=== PATIENT | female | born 1940 | race Caucasian/White ===

== ENCOUNTER 2022-10-11 02:40 | Inpatient (IN) | payer MEDICARE, SELFPAY ==
[2022-10-11] VITALS (44 sets, daily range): BP systolic 70–121; BP diastolic 42–79; PULSE 98–141; RESP 16–26; TEMP 36.3–37.6; O2SAT 94–99; BMI 41.4
--- NOTE | 2022-10-11 | ECHO_ITS ---
Patient Info Name: Damaris Kramer Age: 82 years : 1940 Gender: Female Ht: 63 in Wt: 233 lbs BSA: 2.22 m2 HR: 120 bpm BP: 80 / 62 mmHg Heart Rhythm: Tachycardia, Atrial Fibrillation Exam Date: 10/11/2022 4:10 PM Exam Location: [facility] Pulmonary Patient Status: Inpatient Admit Date: 10/11/2022 Staff Ordering Physician: Damon Arce MD Livestock Farmworker: Arleth Lam RDCS Attending Provider: Saad Sifuentes MD Exam Type: CA echo doppler color flow Study Info Indications - Leg swelling Summary 1. Left ventricular chamber dimension is normal. 2. Left ventricular systolic function is mildly reduced, estimated at 40-45%. Of note, patient is tachycardic during the study. 3. Right ventricular chamber dimension is mildly enlarged. 4. Right ventricular systolic function is reduced. 5. Left atrial chamber dimension is moderately enlarged. 6. Right atrial chamber dimension is mildly enlarged. 7. There is moderate aortic valve sclerosis. 8. There is mild tricuspid valve regurgitation. Left Ventricle Left ventricular chamber dimension is normal. Left ventricular systolic function is mildly reduced, estimated at 40-45%. Of note, patient is tachycardic during the study. There is no increased left ventricular wall thickness. Right Ventricle Right ventricular chamber dimension is mildly enlarged. Right ventricular systolic function is reduced. Left Atria Left atrial chamber dimension is moderately enlarged. Right Atria Right atrial chamber dimension is mildly enlarged. Atrial Septum Intact interatrial septum visualized by color flow imaging. Aortic Valve The aortic valve is not well visualized. There is moderate aortic valve sclerosis. There is no aortic valve stenosis. There is no aortic valve regurgitation. Pulmonic Valve The pulmonic valve is not well visualized. Mitral Valve There is trace mitral valve regurgitation. Tricuspid Valve There is mild tricuspid valve regurgitation. Pericardium/Pleural There is small anterior pericardial effusion. Aorta The aortic root size at the sinus of Valsalva is normal. Left Ventricular Outflow Tract Name Value Normal LVOT 2D LVOT Diameter 2.0 cm LVOT Doppler LVOT Peak Gradient 2 mmHg LVOT Mean Gradient 1 mmHg LVOT VTI 11 cm LVOT VTI/AV VTI Ratio 0.5 LVOT Stroke Volume 35 ml LVOT CO 3.5 l/min LVOT CI 1.6 l/min/m2 Pulmonic Valve Name Value Normal RVOT Doppler RVOT Peak Gradient 1 mmHg PV Doppler PV Peak Gradient 4 mmHg Mitral Valve
--- NOTE | ~2022-10-11 | CT_ITS ---
EXAMINATION: CT abdomen pelvis wo con DATE: 10/11/2022 06:50 INDICATION: Abdominal pain. TECHNIQUE: Computed tomography (CT) of the abdomen and pelvis was performed without intravenous contr ast. Automated exposure control and iterative reconstruction technique were employed. The dose-length product was 1400.80 mGy-cm. COMPARISON: None. FINDINGS: The visualized portions of the lung bases demonstrate mild atelectasis. No pleural effusion . There is left atrial enlargement of the heart. There are coronary artery calcifications. No pericar dial effusion. The liver and spleen are normal. There are changes of cholecystectomy. The pancreas an d adrenal glands are normal. There are cysts in the kidneys measuring up to 2.3 cm on the right. Ther e is no urolithiasis. There are bilateral inguinal hernias containing fat. There is diverticulosis of the colon without evidence of diverticulitis. There are no dilated loops of bowel. The appendix is n ot visualized. There are changes of umbilical hernia repair. There is diastases of the rectus abdomin is muscles. There are no pathologically enlarged lymph nodes. There is no free intraperitoneal fluid. There is pelvic floor dysfunction. There is severe lumbar spondylosis. Thoracolumbar levoscoliosis i s noted. IMPRESSION: 1. Bilateral inguinal hernias containing fat. Reviewed, dictated and finalized at location A.
--- NOTE | ~2022-10-11 | CT_ITS ---
CT Scan of the Chest without Contrast: Clinical Indication: Sepsis Technique: Contiguous sections were acquired throughout the chest without intravenous contrast. Dose reduction technique was used on this scan by utilizing automated exposure control and iterative recon struction technique. The dose-length product (DLP) was 595.56 mGy-cm. Findings: There is no evidence of any significant mediastinal, hilar or axillary lymphadenopathy. Coronary abigail ry calcifications are present. No aortic aneurysm. There is no evidence of pleural or pericardial effusion. There is mild bibasilar scarring or atelectatic change. Large calcified left upper lobe granuloma not ed. Images through the upper abdomen reveal no abnormalities. Impression: No acute abnormality seen. Bibasilar chronic scarring or atelectatic change. Calcified left upper lobe granuloma. Reviewed, dictated and finalized at [facility] [place]. Impression: No acute abnormality seen. Bibasilar chronic scarring or atelectatic change. Calcified left upper lobe granuloma.
--- NOTE | ~2022-10-11 | XR_ITS ---
EXAMINATION: XR chest 1V portable DATE: 10/11/2022 03:29 INDICATION: Weakness. TECHNIQUE: A single frontal view of the chest was obtained. COMPARISON: None. FINDINGS: There is mild atelectasis at the lung bases. A calcified left lung nodule is consistent wit h old granulomatous disease. No pleural effusion or pneumothorax. The heart size is normal. There are prominent paracardial fat pads. IMPRESSION: 1. Mild atelectasis at the lung bases. Reviewed, dictated and finalized at location A.
--- NOTE | ~2022-10-11 | XR_ITS ---
EXAMINATION: XR chest PICC line INDICATION: PICC insertion TECHNIQUE: Portable AP chest at 2025 hours COMPARISON: 0324 hours FINDINGS: A right upper extremity PICC ends with its tip in the distal superior vena cava. There is m ild atelectasis or scarring of the lung bases. No pleural effusion or pneumothorax. The cardiomediast inal silhouette is stable. A calcified nodule of the right upper lobe is consistent with old granulom atous disease. IMPRESSION: 1. Right upper extremity PICC ending with its tip in distal superior vena cava. Reviewed, dictated and finalized at location F.
--- NOTE | 2022-10-11 02:45 | ECG_ITS ---
Measurements Intervals [place] Rate: 151 P: GA: 0 QRS: -29 QRSD: 95 T: 145 QT: 259 QTc: 412 Interpretive Statements ATRIAL FIBRILLATION WITH RAPID VENTRICULAR RESPONSE DELAYED PRECORDIAL R/S TRANSITION ST-T WAVE ABNORMALITY IN HIGH LATERAL LEADS- CONSIDER ISCHEMIA BASELINE ARTIFACT- I, II, III, AVR ABNORMAL ECG NO PREVIOUS ECG AVAILABLE FOR COMPARISON Electronically Signed On 10-11-2022 7:59:59 CDT by Sergo Tolbert D.O.
[2022-10-11] MEDS: dilTIAZem HCl INJ 25 MG/5 ML VIAL 20 MG IV PUSH (03:02)
[2022-10-11] MEDS: dilTIAZem 100 MG/100 ML 100 MG/100 ML BAG IV CONT (03:02)
[2022-10-11 03:05] LABS: Basophils Percent Auto 0.4 % (0.2-1.2); Eosinophils Percent Auto 0.3 % (0-4.4); Hematocrit 42.8 % (37.0-47.0); Immature Granulocyte Absolute 0.04 K/mm3 (0.00-0.031); Immature Granulocyte Percent A 0.5 % (0-0.5); Lymphocytes Absolute Auto 3.48 K/mm3 (0.9-3.2); Lymphocytes Percent Auto 44.8 % (18.3-44.2); Mean Corpuscular Hemoglobin 34.3 pg (26-34); Mean Corpuscular Volume 97.9 fl (80-100); Mean Platelet Volume 10.2 fl (7.4-10.4); Monocytes Percent Auto 0.4 % (2.6-8.5); Neutrophils Absolute Auto 4.2 K/mm3 (1.3-6.7); Neutrophils Percent Auto 53.6 % (45.5-73.1); Platelet Count Result 144 k/mm3 (150-375); Red Blood Count 4.37 M/mm3 (4.2-5.4); Red Cell Distribution Width 14.1 % (11.5-14.5); White Blood Count 7.8 K/mm3 (4.5-10.0)
[2022-10-11 03:19] LABS: INR 1.1; Prothrombin Time 14.1 Seconds (11.1-14.7)
[2022-10-11 03:20] LABS: Partial Thromboplastin Time 24.7 SECONDS (22.3-36.8)
--- NOTE | 2022-10-11 03:20 | ED.GENADULT ---
HPI - General Adult General Chief complaint: Arrhythmia/Palpitations <Scout Ashby MD - Last Filed: 10/11/22 21:30> Stated complaint: GENERALIZED WEAKNESS, RAPID HEART RATE. <Scout Ashby MD - Last Filed: 10/11/22 21:30> Time Seen by Provider: 10/11/22 02:41 <Scout Ashby MD - Last Filed: 10/11/22 21:30> History of Present Illness HPI narrative: Patient is a 82-year-old female who presents the emergency department with chief complaint of tachycardia. Per EMS the patient was found to be in A-fib with RVR and the patient was also complaining of bilateral hip pain. Patient reports has also had some nausea and vomiting with this. Patient upon initial presentation was having a heart rate in the 140s and also reporting that the pain has not improved in her hips. The patient had a moderately low blood pressure upon initial presentation of 97/62. <Scout Ashby MD - Last Filed: 10/11/22 21:30> Related Data Home medications: Home Medications Medication Instructions Recorded Confirmed buspirone 15 mg tablet 15 mg PO BID 10/11/22 10/11/22 furosemide 80 mg tablet 80 mg PO BID 10/11/22 10/11/22 ketoconazole 2 % topical cream 1 applic topical Q12H 10/11/22 10/11/22 levothyroxine 100 mcg tablet 100 mcg PO DAILY 10/11/22 10/11/22 metformin 1,000 mg tablet 1,000 mg PO BID 10/11/22 10/11/22 rosuvastatin 10 mg tablet 10 mg PO DAILY 10/11/22 10/11/22 tramadol 50 mg tablet 50 mg PO Q8H PRN Pain 10/11/22 10/11/22 warfarin 5 mg tablet 5 mg PO DAILY 10/11/22 10/11/22 <Scout Ashby MD - Last Filed: 10/11/22 21:30> Allergies/adverse reactions: Allergies Allergy/AdvReac Type Severity Reaction Status Date / Time No Known Allergies Allergy Verified 10/11/22 02:52 <Scout Ashby MD - Last Filed: 10/11/22 21:30> Review of Systems Review of Systems: A 10 system review of systems was completed on the patient and is negative except for what is stated in the HPI. Nursing and ancillary documentation was reviewed. <Scout Ashby MD - Last Filed: 10/11/22 21:30> PMFSH Past Medical History Medical History: Medical History Diabetes mellitus Hyperlipidemia Hypothyroidism <Scout Ashby MD - Last Filed: 10/11/22 21:30> Social History Social History: Social History Smoking status: Never smoker Alcohol intake: never Substance use: never Lack of Transportation: No Lack of Food: Never True Current Housing: I Have Housing Concerned About Future Housing: No Difficulty Paying Gas/Electric Bills: No Difficulty Paying for Meds: No Currently Unemployed: No Education: High School Diploma/GED Difficulty w/ Childcare or Family Care: No Spiritual care concerns: No <Scout Ashby MD - Last Filed: 10/11/22 21:30> Exam Narrative: GENERAL: Ill-appearing well-nourished, and in no acute distress. HEAD: Normocephalic, atraumatic. EYES: PERRLA and EOMI. ENT: Nares clear, no rhinorrhea or epistaxis. Mucous membranes moist. NECK: Supple. CHEST: Clear to auscultation. No respiratory distress. HEART: Tachycardic irregular rate and rhythm. No murmur heard. Normal peripheral pulses. ABDOMEN: Soft, mild diffuse tenderness, nondistended, normal active bowel sounds. EXTREMITIES: Normal range of motion. No edema. SKIN: Warm, dry, no rash. NEURO: No focal deficits. Alert and oriented x3. PSYCH: Normal mood and affect. <Scout Ashby MD - Last Filed: 10/11/22 21:30> Course Course Emergency Course: Patient is arrhythmia was managed initially with Cardizem bolus and Cardizem drip. Patient received hydration with multiple liters of fluid. And further treatment <Scout Ashby MD - Last Filed: 10/11/22 21:30> Reevaluation(s) Reevaluation #1:
[2022-10-11 03:24] LABS: Lactic Acid Reflex 6.4 mmol/L (0.7-2.0)
[2022-10-11 03:25] LABS: Alanine Aminotransferase 18 U/L (6-35); Alkaline Phosphatase 208 U/L (38-126); Anion Gap 19 mmol/L (8-16); Aspartate Amino Transferase 22 U/L (14-36); Blood Urea Nitrogen 39 mg/dL (7-17); Calcium 8.9 mg/dL (8.4-10.2); Carbon Dioxide 19 mmol/L (22-30); Chloride 93 mmol/L (98-107); Estimated CRCL calculation 23 ml/min; Estimated Glomerular Filt Rate 24; Glucose 561 mg/dL (65-110); Lipase 72 U/L (23-300); Magnesium 1.1 mg/dL (1.6-2.3); Sodium 131 mmol/L (137-145)
[2022-10-11] MEDS: MORPHINE SULFATE (*CRX) 4 MG/ML INJ IV PUSH (03:25)
[2022-10-11 03:32] LABS: NT Pro B Type Natriuretic Pept 643 pg/mL (19.9-100); Troponin I 0.019 ng/mL (0.000-0.034)
[2022-10-11] MEDS: SODIUM CHLORIDE 0.9% IV 1,000 ML 999 ML IV CONT ×4 (03:57→07:26)
[2022-10-11] MEDS: MAGNESIUM SULFATE 3GM/D5W100ML 3 GM/100 ML BAG IVPB (04:59)
[2022-10-11 06:04] LABS: Reflex Lactic Acid Yes or No Add Lactic
[2022-10-11 06:59] LABS: Lactic Acid 4.3 mmol/L (0.7-2.0)
[2022-10-11 07:08] LABS: Troponin I 0.049 ng/mL (0.000-0.034)
[2022-10-11 07:18] LABS: Appearance Urine Clear (Clear); Bacteria Urine 4+ /hpf; Bilirubin Urine Negative (Negative); Blood Urine Trace (Negative); Color Urine Yellow (Yellow); Glucose Urine UA 3+ mg/dL (Negative); Ketones Urine Negative (Negative); Leukocyte Esterase Ur Trace LEU/UL (Negative); Need Manual Microscopic Reviewed; Nitrate Urine Negative (Negative); Protein Urine Negative (Negative); RBC Urine 0-2 /hpf (0-2); Specific Grav Ur 1.014 (1.001-1.035); Squamous Epithelial Cell Urine Few /hpf (Few); Urobilinogen Urine 0.2 mg/dL (<2.0)
[2022-10-11 07:20] LABS: Add Urine Microscopic? YES
[2022-10-11] MEDS: PIPERACILLN/TAZ 3.375GM/NS50ML 3.375 GM/50 ML BAG IVPB (09:13)
[2022-10-11] MEDS: INSULIN HUMAN REGULAR (*BKC) 100 UNITS in SODIUM CHLORIDE 0.9% IV 99 ML 9.8 UNITS IV CONT (09:35)
[2022-10-11 09:46] LABS: Glucose Point of Care > 500 mg/dl (65-105)
[2022-10-11 09:56] LABS: Phosphorus 2.6 mg/dL (2.5-4.5)
[2022-10-11 10:02] LABS: Beta-Hydroxybutyrate/Acetoacetate 0.54 mmol/L (0.02-0.27)
[2022-10-11 10:37] LABS: Glucose Point of Care > 500 mg/dl (65-105)
[2022-10-11 10:48] LABS: Alveolar/Arterial O2 Gradient 29.6 mmHg; Base Excess ABG -6.5 mEq/l (+/-2.0); Device ROOM AIR; Fractional Inspired Oxygen 21 %; HCO3 ABG 18.9 mEq/l (22.0-26.0); Modified Allen's Test Pass; Oxygen Content ABG 17.5 %vol (16.0-22.0); Oxygen Saturation ABG 94.3 % (95.0-100.0); Oxyhemoglobin 92.9 % THb (90.0-100.0); PCO2 ABG 37.1 mmHg (35.0-45.0); PO2 ABG 75.7 mmHg (80.0-100.0); Site Drawn LEFT RADIAL; Total Hemoglobin 13.4 g/dL (12.0-18.0); pH ABG 7.324 (7.350-7.450)
[2022-10-11 11:17] LABS: Procalcitonin 2.3 ng/mL
[2022-10-11 11:35] LABS: Lactic Acid Reflex 5.2 mmol/L (0.7-2.0)
[2022-10-11 11:45] LABS: Glucose Point of Care 438 mg/dl (65-105)
--- NOTE | 2022-10-11 12:21 | PC.NURSE ---
This patient, Damaris Kramer, was admitted to Intensive Care Unit-4. Patient/family oriented to hospital policies and general routines including ID bracelet, bed and alarms, visiting hours, pain management, procedures, bathroom and other care routines, personal items, smoking policy, room service/diet, and visiting hours. Information on how to activate the Rapid Response Team has been discussed. Patient/Family are encouraged to report perceived risks to care and to ask questions if they do not understand what they are told or what they should do.
[2022-10-11 12:48] LABS: Phosphorus 2.3 mg/dL (2.5-4.5)
[2022-10-11 12:50] LABS: Glucose Point of Care 402 mg/dl (65-105)
[2022-10-11 12:57] LABS: Hemoglobin A1C 12.2 % (<5.7)
[2022-10-11 13:01] LABS: Anion Gap 16 mmol/L (8-16); Blood Urea Nitrogen 37 mg/dL (7-17); Calcium 8.2 mg/dL (8.4-10.2); Carbon Dioxide 17 mmol/L (22-30); Chloride 99 mmol/L (98-107); Estimated CRCL calculation 27 ml/min; Estimated Glomerular Filt Rate 29; Glucose 446 mg/dL (65-110); Sodium 132 mmol/L (137-145)
[2022-10-11 13:08] LABS: Creatine Kinase 484 U/L (30-135)
--- NOTE | 2022-10-11 13:32 | WPDCNINT ---
Assessment and Plan Assessment and plan (1) DKA (diabetic ketoacidosis): Code(s): E11.10 - Type 2 diabetes mellitus with ketoacidosis without coma Status: Acute Assessment and Plan: Patient presented with elevated blood sugar metabolic acidosis and elevated beta hydroxybutyrate Patient only on metformin and her HbA1c was 12.2 Continue IV fluids Insulin infusion was started in the ER but will be held due to hypokalemia at this time Serial BMPs Patient does not have any GI symptoms at this time and I will order clear liquid diet Consult deputy juvenile officer and dietitian (2) Lactic acidosis: Code(s): E87.20 - Acidosis, unspecified Status: Acute Assessment and Plan: Patient presented with elevated lactic acid which is likely combination of hypovolemia dehydration. Patient also on metformin which is likely contributing. Patient also has evidence UTI which as component of sepsis Continue IV fluids Hold metformin (3) Atrial fibrillation with rapid ventricular response: Code(s): I48.91 - Unspecified atrial fibrillation Status: Acute Assessment and Plan: Patient has history of AFib but I do not see any rate control medication in the medication list She was given Cardizem in the ER which led to drop in blood pressure Currently she has acceptable rate of control and will monitor May need amiodarone She is on warfarin but I question her compliance as she admitted that she does not take her medications regularly and her INR is 1.1 She received a dose of Lovenox in the ED which should cover her for 24 hours considering her renal function Resume warfarin (4) Hyperlipidemia: Code(s): E78.5 - Hyperlipidemia, unspecified Status: Acute Assessment and Plan: Continue rosuvastatin (5) Hypothyroidism: Code(s): E03.9 - Hypothyroidism, unspecified Status: Acute Assessment and Plan: Continue levothyroxine Check TSH (6) Back pain: Code(s): M54.9 - Dorsalgia, unspecified Status: Acute Assessment and Plan: No focal neurological deficit or fall CT shows severe lumbar spondylosis. Thoracolumbar levoscoliosis is noted. Exam as above Continue p.r.n. analgesic (7) Acute hypokalemia: Code(s): E87.6 - Hypokalemia Status: Acute Assessment and Plan: Hold insulin infusion IV K-Phos and p.o. KCl ordered Change IV fluids to saline with KCl Resume insulin infusion in few hours Serial BMPs ordered (8) Hypomagnesemia: Code(s): E83.42 - Hypomagnesemia Status: Acute Assessment and Plan: Improved after placement (9) Sepsis: Code(s): A41.9 - Sepsis, unspecified organism Status: Acute Assessment and Plan: Patient presented with elevated lactic acid and low blood pressure Chest and abdomen CT are unremarkable UA suggests UTI Blood and urine culture sent Procalcitonin only mildly elevated at 2.3 Continue Zosyn but will hold vancomycin after current dose Her blood pressure has been adequate at this time but may need vasopressors Plan DVT prophylaxis -Lovenox Nutrition -clear liquid diet Code Status - Full Code Total Critical Care Time - 40 minutes Due to a high probability of clinically significant, life threatening deterioration, the patient required my highest level of preparedness to intervene emergently and I personally spent this critical care time directly and personally managing the patient. This critical care time included obtaining a history; examining the patient; pulse oximetry; ordering and review of studies; arranging urgent treatment with development of a management plan; evaluation of patient's response to treatment; frequent reassessment; and discussions with other providers. It was exclusive of separately billable procedures and treating other patients and teaching time. Please see Assessment and Plan section and the rest of the note for further information on patient assessment and
[2022-10-11] MEDS: POTASSIUM CHLORIDE 20 MEQ PACKET (FOR LIQUID) 40 MEQ PO (13:42)
[2022-10-11] MEDS: HYDROcodone/acetaminophen (*CRX) 5-325 MG TABLET 1 TAB PO ×3 (13:44→22:01)
[2022-10-11] MEDS: POTASSIUM PHOS,M-BASIC-D-BASIC 20 MMOL in SODIUM CHLORIDE 0.9% IV 250 ML 64.17 MMOL IVPB (14:20)
[2022-10-11] MEDS: KCL 20MEQ/0.9% SOD CHL 1,000 ML 150 ML IV CONT (14:25)
[2022-10-11] MEDS: ENOXAPARIN 120 MG/0.8 ML SYRINGE 110 MG SUB-Q (15:12)
[2022-10-11 15:56] LABS: Appearance Urine Clear (Clear); Bacteria Urine 4+ /hpf; Bilirubin Urine Negative (Negative); Blood Urine 1+ (Negative); Color Urine Yellow (Yellow); Glucose Urine UA 3+ mg/dL (Negative); Ketones Urine Negative (Negative); Leukocyte Esterase Ur Negative LEU/UL (NEGATIVE); Nitrate Urine Negative (Negative); Protein Urine Trace mg/dL (Negative); RBC Urine 0-2 /hpf (0-2); Specific Grav Ur 1.017 (1.001-1.035); Squamous Epithelial Cell Urine Occasional /hpf (Few); Urobilinogen Urine 0.2 mg/dL (<2.0); WBC Urine 0-5 /hpf (0-3)
[2022-10-11 15:57] LABS: Glucose Point of Care 390 mg/dl (65-105)
[2022-10-11 16:06] LABS: Add Urine Microscopic? YES
[2022-10-11 17:01] LABS: Free T4 Free Thyroxine Reflex 0.94 ng/dL (0.78-2.19)
[2022-10-11] MEDS: PIPERACILLIN/TAZ 2.25G/NS 50ML 2.25 GM/50 ML BAG IVPB (17:06)
[2022-10-11] MEDS: WARFARIN (*PBKC) 5 MG TABLET PO (17:06)
[2022-10-11 17:15] LABS: Glucose Point of Care 362 mg/dl (65-105)
[2022-10-11 17:21] LABS: Anion Gap 15 mmol/L (8-16); Blood Urea Nitrogen 38 mg/dL (7-17); Calcium 7.8 mg/dL (8.4-10.2); Carbon Dioxide 18 mmol/L (22-30); Chloride 99 mmol/L (98-107); Estimated CRCL calculation 29 ml/min; Estimated Glomerular Filt Rate 31; Glucose 359 mg/dL (65-110); Potassium 3.8 mmol/L (3.4-5.0); Sodium 132 mmol/L (137-145)
[2022-10-11] MEDS: INSULIN HUMAN REGULAR (*BKC) 100 UNITS in SODIUM CHLORIDE 0.9% IV 99 ML 21 UNITS IV CONT (17:48)
[2022-10-11 17:55] LABS: Total Triiodothyronine (T3) 0.37 NG/ML (0.97-1.69)
[2022-10-11 18:12] LABS: Glucose Point of Care 322 mg/dl (65-105)
[2022-10-11 19:22] LABS: Glucose Point of Care 267 mg/dl (65-105)
--- NOTE | 2022-10-11 20:03 | PC.NURSE ---
Daughter Shelley's phone number is [phone]
[2022-10-11 21:00] LABS: Glucose Point of Care 164 mg/dl (65-105)
[2022-10-11 21:15] LABS: Anion Gap 8 mmol/L (8-16); Blood Urea Nitrogen 37 mg/dL (7-17); Calcium 7.9 mg/dL (8.4-10.2); Carbon Dioxide 22 mmol/L (22-30); Chloride 105 mmol/L (98-107); Estimated CRCL calculation 32 ml/min; Estimated Glomerular Filt Rate 36; Glucose 124 mg/dL (65-110); Potassium 4.4 mmol/L (3.4-5.0); Sodium 135 mmol/L (137-145)
--- NOTE | 2022-10-11 21:30 | PM.IMHP ---
H&P: HPI History of Present Illness Date/Time: 10/11/22 21:30 Chief Complaint: Generalized weakness, nausea, vomiting. Narrative: This is an 82-year-old female with type 2 diabetes mellitus, hypertension, hypothyroidism, and paroxysmal atrial fibrillation on chronic anticoagulation who presented to the emergency department via EMS from home early this morning for evaluation of generalized weakness, nausea, and vomiting. Patient provides the following history. She got up early this morning to use the restroom at which time she felt extremely weak and nauseated. She was also having severe pain in her hips and knees which she states is not new for her and she is really not able to elaborate. She said she called 911 because of the pain in her hips and knees, which again is not new. On EMS arrival she was found to be in atrial fibrillation with rapid ventricular response in the emergency department she was started on a diltiazem however her blood pressure did drop and that was discontinued. She continues to have soft blood pressures which have been essentially stable with aggressive IV fluid rehydration. She has no symptoms of AFib/RVR and specifically denies lightheadedness, dizziness, chest pain, palpitations, sensations of racing heart, and shortness of breath. Regarding the pain in her hips and knees, this is chronic and she has not had any recent falls or injuries. She denies back pain, paresthesias, saddle anesthesia, and focal weakness of the lower legs. She has not noticed any redness or swelling of the joints. She was afebrile on arrival to the emergency department and she has been in AFib/RVR since arrival. Pertinent labs include a WBC count of 7.8, sodium 131, potassium 3.0, chloride 93, carbon dioxide 19, anion gap 19, BUN 39, creatinine 2.00, glucose 561, magnesium 1.1, beta hydroxybutyrate 0.54, procalcitonin 2.3, lactic acid 6.4. She has since been admitted to the ICU for further treatment of diabetic ketoacidosis, atrial fibrillation with rapid ventricular response, and possible sepsis. At the time of my evaluation she is resting comfortably and has no specific complaints. Review of Systems Review of Systems: Twelve systems were reviewed and are negative except for as per HPI. COUNT INCLUDES THE [facility] Past Medical History Medical History (Updated 10/13/22 @ 02:15 by Suzi Chen PA-C) Chronic anticoagulation Hyperlipidemia Hyperlipidemia Hypothyroidism Type 2 diabetes mellitus Surgical History Surgical History (Updated 10/13/22 @ 02:15 by Suzi Chen PA-C) No history of major surgery within 1 month Family History Family History (Updated 10/13/22 @ 02:15 by Suzi Chen PA-C) Other Family history non-contributory Social History Social History (Updated 10/13/22 @ 02:15 by Suzi Chen PA-C) Social History: Surrogate medical decision maker: Khari Kramer, son. Code status: Full code. Smoking status: Never smoker Alcohol intake: never Substance use: never Lack of Transportation: No Lack of Food: Never True Current Housing: I Have Housing Concerned About Future Housing: No Difficulty Paying Gas/Electric Bills: No Difficulty Paying for Meds: No Currently Unemployed: No Education: High School Diploma/GED Difficulty w/ Childcare or Family Care: No Spiritual care concerns: No Meds Home Medications and Allergies Home Medications Medication Instructions Recorded Confirmed Type buspirone 15 mg tablet 15 mg PO BID 10/11/22 10/11/22 History furosemide 80 mg tablet 80 mg PO BID 10/11/22 10/11/22 History ketoconazole 2 % topical cream 1 applic topical Q12H 10/11/22 10/11/22 History levothyroxine 100 mcg tablet 100 mcg PO DAILY 10/11/22 10/11/22 History metformin 1,000 mg tablet 1,000 mg PO BID 10/11/22 10/11/22 History rosuvastatin 10 mg tablet 10 mg PO DAILY 10/11/22 10/11/22 History tramadol 50 mg tablet 50 mg PO Q8H PRN Pain 10/11/22 10/11/22 History warfarin 5 mg tablet 5 mg
[2022-10-11] MEDS: CENTRAL LINE FLUSH 10 ML IV PUSH (22:02)
[2022-10-11] MEDS: TOLNAFTATE 1% POWDER 45 GM BTL 1 APPLIC TOPICAL (22:02)
[2022-10-11] MEDS: LACTATED RINGERS 1,000 ML 100 ML IV CONT (22:02)
[2022-10-11] MEDS: INSULIN GLARGINE (*BKC) 100 UNITS/ML 30 UNITS SUB-Q (22:03)
[2022-10-11 22:16] LABS: Glucose Point of Care 104 mg/dl (65-105)
[2022-10-12] VITALS (16 sets, daily range): BP systolic 72–128; BP diastolic 49–81; PULSE 113–151; RESP 16–22; TEMP 36.9–37.6; O2SAT 88–100; BMI 41.9
[2022-10-12 00:54] LABS: Glucose Point of Care 128 mg/dl (65-105)
[2022-10-12] MEDS: PIPERACILLIN/TAZ 2.25G/NS 50ML 2.25 GM/50 ML BAG IVPB ×5 (00:56→23:18)
[2022-10-12 01:11] LABS: Anion Gap 7 mmol/L (8-16); Blood Urea Nitrogen 37 mg/dL (7-17); Calcium 7.9 mg/dL (8.4-10.2); Carbon Dioxide 23 mmol/L (22-30); Chloride 105 mmol/L (98-107); Estimated CRCL calculation 30 ml/min; Estimated Glomerular Filt Rate 33; Glucose 125 mg/dL (65-110); Potassium 3.7 mmol/L (3.4-5.0); Sodium 135 mmol/L (137-145)
[2022-10-12] MEDS: HYDROcodone/acetaminophen (*CRX) 5-325 MG TABLET 2 TAB PO (02:20)
[2022-10-12 05:08] LABS: Hematocrit 34.7 % (37.0-47.0); Hemoglobin 11.6 g/dL (12.0-15.0); Immature Platelet Fraction Pct 4.1 % (0.9-11.2); Mean Corpuscular HGB Conc 33.4 g/dl (32-36); Mean Corpuscular Hemoglobin 33.1 pg (26-34); Mean Corpuscular Volume 99.1 fl (80-100); Mean Platelet Volume 10.4 fl (7.4-10.4); Platelet Count Result 118 k/mm3 (150-375); Red Cell Distribution Width 14.4 % (11.5-14.5)
[2022-10-12 05:12] LABS: Phosphorus 3.2 mg/dL (2.5-4.5)
[2022-10-12 05:15] LABS: INR 1.3; Prothrombin Time 15.3 Seconds (11.1-14.7)
[2022-10-12 05:33] LABS: Alanine Aminotransferase 15 U/L (6-35); Alkaline Phosphatase 92 U/L (38-126); Anion Gap 8 mmol/L (8-16); Aspartate Amino Transferase 51 U/L (14-36); Bilirubin,Total 0.9 mg/dL (0.2-1.3); Blood Urea Nitrogen 35 mg/dL (7-17); Calcium 7.9 mg/dL (8.4-10.2); Carbon Dioxide 22 mmol/L (22-30); Chloride 105 mmol/L (98-107); Estimated CRCL calculation 32 ml/min; Estimated Glomerular Filt Rate 36; Glucose 168 mg/dL (65-110); Magnesium 1.7 mg/dL (1.6-2.3); Potassium 3.7 mmol/L (3.4-5.0); Sodium 135 mmol/L (137-145)
[2022-10-12 05:39] LABS: CRP 13.3 mg/dL (<1.0)
[2022-10-12 06:33] LABS: Free T4 Free Thyroxine Reflex 0.95 ng/dL (0.78-2.19)
[2022-10-12] MEDS: LEVOTHYROXINE SODIUM INJ 100 MCG/5 ML VIAL 50 MCG IV PUSH (06:47)
[2022-10-12] MEDS: CENTRAL LINE FLUSH 10 ML IV PUSH ×3 (06:47→20:21)
[2022-10-12] MEDS: HYDROcodone/acetaminophen (*CRX) 5-325 MG TABLET 1 TAB PO ×4 (06:52→21:50)
[2022-10-12] MEDS: LACTATED RINGERS 1,000 ML 100 ML IV CONT ×2 (08:21→18:19)
[2022-10-12] MEDS: TOLNAFTATE 1% POWDER 45 GM BTL 1 APPLIC TOPICAL ×2 (08:24→20:21)
[2022-10-12 08:27] LABS: Glucose Point of Care 164 mg/dl (65-105)
--- NOTE | 2022-10-12 08:35 | WPDINTPN ---
Progress Note: A&P Assessment and Plan (1) DKA (diabetic ketoacidosis): Code(s): E11.10 - Type 2 diabetes mellitus with ketoacidosis without coma Status: Acute Assessment and Plan: Patient presented with elevated blood sugar metabolic acidosis and elevated beta hydroxybutyrate Patient only on metformin and her HbA1c was 12.2 Her anion gap has closed and patient has been transition to subcutaneous insulin now. Continue Lantus and sliding scale Diabetic diet Consult consumer educator and dietitian (2) Lactic acidosis: Code(s): E87.20 - Acidosis, unspecified Status: Acute Assessment and Plan: Patient presented with elevated lactic acid which is likely combination of hypovolemia dehydration. Patient also on metformin which is likely contributing. Patient also has evidence UTI which as component of sepsis Resolved with IV fluids Hold metformin (3) Atrial fibrillation with rapid ventricular response: Code(s): I48.91 - Unspecified atrial fibrillation Status: Acute Assessment and Plan: Patient patient is on Coumadin but does not know if she has history of AFib. I do not see any rate control medication in the medication list. She was given Cardizem in the ER which led to drop in blood pressure Yesterday her rate control was adequate but this morning her ventricular rate is elevated. I will start p.o. Cardizem and will give 1 dose of IV. She has warfarin on her med list but she is not sure whether she is on anticoagulation or not. Despite that I I question her compliance as she admitted that she does not take her medications regularly and her INR is only 1.1 Warfarin has been resumed and I will continue Lovenox at this time. Monitor INR Echo ordered (4) Hyperlipidemia: Code(s): E78.5 - Hyperlipidemia, unspecified Status: Acute Assessment and Plan: Continue rosuvastatin (5) Hypothyroidism: Code(s): E03.9 - Hypothyroidism, unspecified Status: Acute Assessment and Plan: Continue levothyroxine but change to p.o. TSH elevated but free T4 is in normal range I question patient's compliance with her levothyroxine at home (6) Back pain: Code(s): M54.9 - Dorsalgia, unspecified Status: Acute Assessment and Plan: No focal neurological deficit or fall CT shows severe lumbar spondylosis. Thoracolumbar levoscoliosis is noted. Exam as above Improved continue p.r.n. analgesic PT OT consult (7) Acute hypokalemia: Code(s): E87.6 - Hypokalemia Status: Acute Assessment and Plan: Improved with replacement Continue p.o. KCl today (8) Hypomagnesemia: Code(s): E83.42 - Hypomagnesemia Status: Acute Assessment and Plan: Improved after placement Will give 1 dose of magnesium oxide today (9) Sepsis: Code(s): A41.9 - Sepsis, unspecified organism Status: Acute Assessment and Plan: Patient presented with elevated lactic acid and low blood pressure Chest and abdomen CT are unremarkable UA suggests UTI Blood and urine culture sent. Blood culture 1/2 is growing Gram-negative rods but may be a contaminant. Will wait for identification Procalcitonin only mildly elevated at 2.3 Continue Zosyn but will hold vancomycin after current dose BP has improved with hydration Plan DVT prophylaxis -Lovenox warfarin Nutrition -consistent carbohydrate diet Code Status - Full Code PT OT Up in chair Incentive spirometry Transfer out ICU today Subjective Date/time seen: 10/12/22 Insulin infusion was weaned off overnight as anion gap closed. She continues to be AFib with ventricular rate is worse this morning. Good urine output. Otherwise patient states she feels much better this morning and denies any specific complaints. She states she has aches and pains all over body that is not new. She states her back pain is better today as compared to yesterday. She is hungry and would like to eat f
[2022-10-12] MEDS: MAGNESIUM SULF 1 GM/D5W 100 ML 1 GM/100 ML BAG IVPB (09:00)
[2022-10-12] MEDS: dilTIAZem HCl INJ 25 MG/5 ML VIAL 20 MG IV PUSH (09:08)
[2022-10-12 09:09] LABS: Erythrocyte Sedimentation Rate 54 mm/hr (0-20)
[2022-10-12] MEDS: dilTIAZem HCL 30 MG TABLET PO ×2 (09:09→11:34)
[2022-10-12] MEDS: ENOXAPARIN 120 MG/0.8 ML SYRINGE 105 MG SUB-Q ×2 (09:15→20:19)
[2022-10-12] MEDS: MAGNESIUM OXIDE 400 MG TABLET PO (09:17)
[2022-10-12] MEDS: ROSUVASTATIN 10 MG TABLET PO (09:17)
[2022-10-12] MEDS: POTASSIUM CHLORIDE 20 MEQ TABLET 40 MEQ PO (09:17)
[2022-10-12 10:39] LABS: Anion Gap 10 mmol/L (8-16); Blood Urea Nitrogen 33 mg/dL (7-17); Carbon Dioxide 18 mmol/L (22-30); Chloride 106 mmol/L (98-107); Estimated CRCL calculation 33 ml/min; Estimated Glomerular Filt Rate 36; Glucose 294 mg/dL (65-110); Potassium 3.8 mmol/L (3.4-5.0); Sodium 134 mmol/L (137-145)
[2022-10-12] MEDS: INSULIN ASPART (*BKC) 100 UNITS/ML SUB-Q ×2 (11:33→20:17)
[2022-10-12 11:40] LABS: Glucose Point of Care 333 mg/dl (65-105)
[2022-10-12] MEDS: dilTIAZem HCl INJ 25 MG/5 ML VIAL 10 MG IV PUSH (12:57)
--- NOTE | 2022-10-12 15:53 | PM.CNCAR ---
Assessment and Plan Assessment and plan (1) Diabetic ketoacidosis: Code(s): E11.10 - Type 2 diabetes mellitus with ketoacidosis without coma Status: Acute Assessment and Plan: Management as per the ICU team. (2) Atrial fibrillation with rapid ventricular response: Code(s): I48.91 - Unspecified atrial fibrillation Status: Acute Assessment and Plan: Known history of atrial fibrillation, currently in RVR. Blood pressures are soft, I do not think she will tolerate a decent dose of beta dany. Will start Amiodarone. TTE 10/11/22 showed LVEF 40-45%, however, patient was in RVR during this study. Will eventually need repeat study once heart rate is controlled for better evaluation of LVEF. Patient to follow up with Dr. Matos as an outpatient. 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 On Warfarin. Getting therapeutic Lovenox while INR subtherapeutic. (4) Mild left ventricular systolic dysfunction: Code(s): I51.89 - Other ill-defined heart diseases Status: Acute Assessment and Plan: TTE 10/11/22 showed LVEF 40-45%, however, patient was in RVR during this study. Will eventually need repeat study once heart rate is controlled for better evaluation of LVEF. History of Present Illness History of Present Illness Consult date/time: 10/12/22 15:53 Requesting physician: Phillip Childers MD Consult reason: atrial fibrillation Reason For Visit: DKA,Hypotension,A-Fib w/RVR Narrative: We are consulted for atrial fibrillation with RVR. This is an 82 year old female with a history of atrial fibrillation on Warfarin, diabetes, hyperlipidemia who presented with back pain, nausea. In the ED, patient found to be hypotensive, in atrial fibrillation with RVR, hyperglycemic, metabolic acidosis. She was admitted to the ICU with DKA and possible sepsis. Patient's primary gas jockey is Dr. Matos at [facility]. Last saw him in February 2022. Patient is supposed to be on Warfarin at home, but presented with subtherapeutic INR. She has been receiving therapeutic Lovenox here. When I asked her about the medications she takes at home, she states she takes whatever she's told to, but cannot provide any further details regarding her medications. Questionable medication compliance. Upon my evaluation, patient states she feels wonderful. Has an itchy nose, but no other complaints. In RVR but denies palpitations. Review of Systems Review of Systems: All systems reviewed & are unremarkable except as noted in HPI and below (HPI) [facility] Past Medical History Medical History Chronic anticoagulation Hyperlipidemia Hyperlipidemia Hypothyroidism Type 2 diabetes mellitus Social History Social History Smoking status: Never smoker Alcohol intake: never Substance use: never Lack of Transportation: No Lack of Food: Never True Current Housing: I Have Housing Concerned About Future Housing: No Difficulty Paying Gas/Electric Bills: No Difficulty Paying for Meds: No Currently Unemployed: No Education: High School Diploma/GED Difficulty w/ Childcare or Family Care: No Spiritual care concerns: No Meds Home Medications and Allergies Home Medications Medication Instructions Recorded Confirmed Type buspirone 15 mg tablet 15 mg PO BID 10/11/22 10/11/22 History furosemide 80 mg tablet 80 mg PO BID 10/11/22 10/11/22 History ketoconazole 2 % topical cream 1 applic topical Q12H 10/11/22 10/11/22 History levothyroxine 100 mcg tablet 100 mcg PO DAILY 10/11/22 10/11/22 History metformin 1,000 mg tablet 1,000 mg PO BID 10/11/22 10/11/22 History rosuvastatin 10 mg tablet 10 mg PO DAILY 10/11/22 10/11/22 History tramadol 50 mg tablet 50 mg PO Q8H PRN Pain 10/11/22
[2022-10-12] MEDS: AMIODARONE 360 MG/D5W 200 ML 360 MG/200 ML BAG 33.33 MG IV CONT (16:09)
[2022-10-12 16:29] LABS: Anion Gap 10 mmol/L (8-16); Blood Urea Nitrogen 30 mg/dL (7-17); Calcium 8.2 mg/dL (8.4-10.2); Carbon Dioxide 20 mmol/L (22-30); Chloride 102 mmol/L (98-107); Estimated CRCL calculation 35 ml/min; Estimated Glomerular Filt Rate 39; Glucose 386 mg/dL (65-110); Sodium 132 mmol/L (137-145)
[2022-10-12] MEDS: WARFARIN (*PBKC) 5 MG TABLET PO (16:56)
[2022-10-12] MEDS: dilTIAZem HCL 60 MG TABLET PO ×2 (16:57→23:14)
[2022-10-12 17:02] LABS: Glucose Point of Care 429 mg/dl (65-105)
[2022-10-12] MEDS: INSULIN ASPART (*BKC) 100 UNITS/ML 15 UNITS SUB-Q (17:47)
[2022-10-12] MEDS: INSULIN GLARGINE (*BKC) 100 UNITS/ML 30 UNITS SUB-Q (20:18)
[2022-10-12 20:35] LABS: Glucose Point of Care 362 mg/dl (65-105)
[2022-10-12] MEDS: AMIODARONE 360 MG/D5W 200 ML 360 MG/200 ML BAG 16.67 MG IV CONT (21:38)
[2022-10-13] VITALS (14 sets, daily range): BP systolic 101–123; BP diastolic 51–71; PULSE 10–124; RESP 16–23; TEMP 36.6–37.4; O2SAT 93–98
[2022-10-13] MEDS: LACTATED RINGERS 1,000 ML 50 ML IV CONT (04:41)
[2022-10-13] MEDS: PIPERACILLIN/TAZ 2.25G/NS 50ML 2.25 GM/50 ML BAG IVPB (05:15)
[2022-10-13] MEDS: CENTRAL LINE FLUSH 10 ML IV PUSH ×3 (05:16→21:35)
[2022-10-13] MEDS: dilTIAZem HCL 60 MG TABLET PO ×3 (05:18→17:00)
[2022-10-13] MEDS: LEVOTHYROXINE SODIUM 100 MCG TABLET PO (05:18)
[2022-10-13 05:44] LABS: Hematocrit 33.4 % (37.0-47.0); Mean Corpuscular HGB Conc 32.9 g/dl (32-36); Mean Corpuscular Hemoglobin 33.7 pg (26-34); Mean Corpuscular Volume 102.5 fl (80-100); Mean Platelet Volume 10.5 fl (7.4-10.4); Platelet Count Result 112 k/mm3 (150-375); Red Blood Count 3.26 M/mm3 (4.2-5.4); Red Cell Distribution Width 14.4 % (11.5-14.5); White Blood Count 11.1 K/mm3 (4.5-10.0)
[2022-10-13 05:50] LABS: INR 1.3; Prothrombin Time 15.7 Seconds (11.1-14.7)
[2022-10-13 06:06] LABS: Alanine Aminotransferase 15 U/L (6-35); Alkaline Phosphatase 85 U/L (38-126); Anion Gap 6 mmol/L (8-16); Aspartate Amino Transferase 41 U/L (14-36); Bilirubin,Total 0.7 mg/dL (0.2-1.3); Blood Urea Nitrogen 19 mg/dL (7-17); Calcium 8.2 mg/dL (8.4-10.2); Carbon Dioxide 23 mmol/L (22-30); Chloride 104 mmol/L (98-107); Estimated CRCL calculation 51 ml/min; Estimated Glomerular Filt Rate 60; Glucose 319 mg/dL (65-110); Magnesium 2.1 mg/dL (1.6-2.3); Potassium 3.5 mmol/L (3.4-5.0); Sodium 133 mmol/L (137-145)
[2022-10-13] MEDS: TOLNAFTATE 1% POWDER 45 GM BTL 1 APPLIC TOPICAL ×2 (08:02→21:34)
[2022-10-13] MEDS: ROSUVASTATIN 10 MG TABLET PO (08:03)
[2022-10-13] MEDS: ENOXAPARIN 120 MG/0.8 ML SYRINGE 105 MG SUB-Q ×2 (08:03→21:33)
[2022-10-13] MEDS: INSULIN ASPART (*BKC) 100 UNITS/ML SUB-Q ×3 (08:03→16:57)
[2022-10-13 08:13] LABS: Glucose Point of Care 313 mg/dl (65-105)
[2022-10-13] MEDS: AMIODARONE 360 MG/D5W 200 ML 360 MG/200 ML BAG 16.67 MG IV CONT ×2 (09:14→21:33)
--- NOTE | 2022-10-13 11:19 | PM.IMPN ---
Progress Note: A&P Assessment and Plan (1) DKA (diabetic ketoacidosis): Code(s): E11.10 - Type 2 diabetes mellitus with ketoacidosis without coma Status: Acute Assessment and Plan: Patient presented with elevated blood sugar metabolic acidosis and elevated beta hydroxybutyrate Patient only on metformin and her HbA1c was 12.2 Her anion gap has closed and patient has been transition to subcutaneous insulin now. Continue Lantus and sliding scale. Will add mealtime insulin. Patient counseled on medication compliance Diabetic diet Consult certified breastfeeding educator and dietitian (2) Lactic acidosis: Code(s): E87.20 - Acidosis, unspecified Status: Acute Assessment and Plan: Patient presented with elevated lactic acid which is likely combination of hypovolemia dehydration. Patient also on metformin which is likely contributing. Patient also has evidence UTI which as component of sepsis Resolved with IV fluids Hold metformin (3) Atrial fibrillation with rapid ventricular response: Code(s): I48.91 - Unspecified atrial fibrillation Status: Acute Assessment and Plan: Patient currently on amiodarone drip. Cardiology consulted. Continue Coumadin. monitor INR Echo ordered (4) Hyperlipidemia: Code(s): E78.5 - Hyperlipidemia, unspecified Status: Acute Assessment and Plan: Continue rosuvastatin (5) Hypothyroidism: Code(s): E03.9 - Hypothyroidism, unspecified Status: Acute Assessment and Plan: Continue levothyroxine (6) Back pain: Code(s): M54.9 - Dorsalgia, unspecified Status: Acute Assessment and Plan: No focal neurological deficit or fall continue p.r.n. analgesic PT OT consult (7) Acute hypokalemia: Code(s): E87.6 - Hypokalemia Status: Acute Assessment and Plan: Improved with replacement Continue p.o. KCl (8) Hypomagnesemia: Code(s): E83.42 - Hypomagnesemia Status: Acute Assessment and Plan: Improved after replacement Subjective Date/time seen: 10/13/22 11:19 Patient reports having anxiety. no other complaints at this time Review of Systems Review of Systems: All systems reviewed & are unremarkable except as noted in HPI and below (HPI) Exam Const: General: comfortable and no acute distress HENMT: Mouth: Yes moist mucous membranes Eyes: General: appearance normal, both eyes and all related structures Sclera: sclerae normal Neck: Neck: supple Resp: Effort & Inspection: normal respiratory effort Auscultation: clear to auscultation bilaterally Cardio: Rate: tachycardic Rhythm: abnormal rhythm irregularly irregular Heart sounds: no murmurs GI: GI Palp: Yes Soft to palpation Skin: General skin exam: normal color Neuro: Speech: normal speech Extrem: General: normal to inspection Psych: Mental Status: mental status grossly normal Affect: normal affect Objective Data Vital Signs Vital Signs: Vital Signs - 24 hr 10/12/22 12:00 10/12/22 14:00 10/12/22 12:00 Temperature Pulse Rate 142 H 116 H Respiratory Rate Blood Pressure Pulse Oximetry Oxygen Delivery Room Air 10/12/22 12:00 10/12/22 14:00 10/12/22 16:09 Temperature 99 F Pulse Rate 149 H 116 H 138 H Respiratory Rate 22 H 20 Blood Pressure 123/59 L 106/67 128/73 Pulse Oximetry 88 L 98 Oxygen Delivery 10/12/22 16:00 10/12/22 16:00 10/12/22 16:00 Temperature 99.6 F Pulse Rate 129 H 128 H Respiratory Rate 21 H Blood Pressure 120/71 Pulse Oximetry 96 Oxygen Delivery Room Air 10/12/22 18:00 10/12/22 20:00 10/12/22 20:00 Temperature 99.6 F Pulse Rate 124 H 133 H Respiratory Rate 22 H Blood Pressure 112/73 Pulse Oximetry 92 Oxygen Delivery Room Air 10/12/22 21:38 10/12/22 20:00 10/12/22 22:00 Temperature Pulse Rate 113 H 135 H 116 H Respiratory Rate Blood Pressure 117/66 Pulse Oximetry Oxygen Delivery
--- NOTE | 2022-10-13 11:40 | PM.PNCARD ---
Progress Note: A&P Assessment and Plan (1) DKA (diabetic ketoacidosis): Code(s): E11.10 - Type 2 diabetes mellitus with ketoacidosis without coma Status: Acute Assessment and Plan: Management as per the ICU team. (2) Atrial fibrillation with rapid ventricular response: Code(s): I48.91 - Unspecified atrial fibrillation Status: Acute Assessment and Plan: Known history of atrial fibrillation, went into RVR this hospitalization. Blood pressures are soft, I do not think she will tolerate a decent dose of beta dany. Amiodarone drip started 10/12. Heart rate improved with Amiodarone drip. Still mildly tachycardic, will continue Amiodarone drip for today and likely switch to PO tomorrow. TTE 10/11/22 showed LVEF 40-45%, however, patient was in RVR during this study. Will eventually need repeat study once heart rate is controlled for better evaluation of LVEF. Patient to follow up with Dr. Matos as an outpatient. 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 On Warfarin. Getting therapeutic Lovenox while INR subtherapeutic. (4) Mild left ventricular systolic dysfunction: Code(s): I51.89 - Other ill-defined heart diseases Status: Acute Assessment and Plan: TTE 10/11/22 showed LVEF 40-45%, however, patient was in RVR during this study. Will eventually need repeat study once heart rate is controlled for better evaluation of LVEF. Subjective Date/time seen: 10/13/22 11:40 Interval history: Reason for visit: Atrial fibrillation with RVR HPI: We are consulted for atrial fibrillation with RVR. This is an 82 year old female with a history of atrial fibrillation on Warfarin, diabetes, hyperlipidemia who presented with back pain, nausea. In the ED, patient found to be hypotensive, in atrial fibrillation with RVR, hyperglycemic, metabolic acidosis. She was admitted to the ICU with DKA and possible sepsis. Patient's primary cotton feeder is Dr. Matos at [facility]. Last saw him in February 2022. Patient is supposed to be on Warfarin at home, but presented with subtherapeutic INR. She has been receiving therapeutic Lovenox here. When I asked her about the medications she takes at home, she states she takes whatever she's told to, but cannot provide any further details regarding her medications. Questionable medication compliance. Upon my evaluation, patient states she feels wonderful. Has an itchy nose, but no other complaints. In RVR but denies palpitations. Date of service 10/13: Patient sleeping comfortably this morning. HR is better now on Amiodarone drip. Review of Systems Review of Systems: 8 point ROS obtained. Negative, unless stated in HPI. Exam Const: General: comfortable and no acute distress HENMT: Mouth: Yes moist mucous membranes Eyes: General: appearance normal, both eyes and all related structures Sclera: sclerae normal Resp: Effort & Inspection: normal respiratory effort Auscultation: clear to auscultation bilaterally Cardio: Rate: tachycardic Rhythm: abnormal rhythm irregularly irregular Heart sounds: no murmurs GI: GI Palp: Yes Soft to palpation Skin: General skin exam: normal color Neuro: Speech: normal speech Extrem: General: normal to inspection Psych: Mental Status: mental status grossly normal Affect: normal affect Objective Data Vital Signs Vital Signs: Vital Signs - 24 hr 10/12/22 12:00 10/12/22 14:00 10/12/22 12:00 Temperature Pulse Rate 142 H 116 H Respiratory Rate Blood Pressure Pulse Oximetry Oxygen Delivery Room Air 10/12/22 12:00 10/12/22 14:00 10/12/22 16:09 Temperature 37.2 C Pulse Rate 149 H 116 H 138 H Respiratory Rate 22 H 20 Blood Pressure 123/59 L 106/67 128/73 Pulse Oximetry 88 L 98 Oxygen Delivery 10/12/22 16:00 10/12/22 16:00 10/12/22 16:00 Temperature 37.6 C Pulse R
[2022-10-13] MEDS: INSULIN ASPART (*BKC) 100 UNITS/ML 10 UNITS SUB-Q ×2 (12:05→16:56)
[2022-10-13 12:08] LABS: Glucose Point of Care 369 mg/dl (65-105)
[2022-10-13] MEDS: polyethylene glycoL 3350 17 GM POWD.PACK PO (12:11)
[2022-10-13] MEDS: HYDROcodone/acetaminophen (*CRX) 5-325 MG TABLET 1 TAB PO ×2 (13:19→21:42)
[2022-10-13] MEDS: cefTRIAXone 2 GM/NS 100 ML 2 GM/100 ML BAG IVPB (14:49)
[2022-10-13] MEDS: WARFARIN (*PBKC) 5 MG TABLET PO (16:56)
[2022-10-13 17:07] LABS: Glucose Point of Care 329 mg/dl (65-105)
--- NOTE | 2022-10-13 18:42 | PC.NURSE ---
This patient, Damaris Kramer, was received from ICU on 10/13/22 at 1842. Patient/family oriented to unit policies and routines
[2022-10-13 21:23] LABS: Glucose Point of Care 335 mg/dl (65-105)
[2022-10-13] MEDS: INSULIN GLARGINE (*BKC) 100 UNITS/ML 30 UNITS SUB-Q (21:34)
[2022-10-14] VITALS (14 sets, daily range): BP systolic 98–130; BP diastolic 46–89; PULSE 83–114; RESP 16–93; TEMP 36.4–36.8; O2SAT 91–98
[2022-10-14] MEDS: dilTIAZem HCL 60 MG TABLET PO ×5 (00:01→23:36)
[2022-10-14 04:35] LABS: Hemoglobin 10.9 g/dL (12.0-15.0); Immature Platelet Fraction Pct 4.4 % (0.9-11.2); Mean Corpuscular Hemoglobin 34.1 pg (26-34); Mean Corpuscular Volume 103.1 fl (80-100); Mean Platelet Volume 10.9 fl (7.4-10.4); Platelet Count Result 109 k/mm3 (150-375); Red Cell Distribution Width 14.5 % (11.5-14.5); White Blood Count 7.8 K/mm3 (4.5-10.0)
[2022-10-14 04:45] LABS: INR 1.5; Prothrombin Time 17.2 Seconds (11.1-14.7)
[2022-10-14 04:50] LABS: Alanine Aminotransferase 16 U/L (6-35); Albumin Level 2.8 g/dL (3.5-5.1); Alkaline Phosphatase 93 U/L (38-126); Anion Gap 2 mmol/L (8-16); Aspartate Amino Transferase 39 U/L (14-36); Bilirubin,Total 0.5 mg/dL (0.2-1.3); Blood Urea Nitrogen 17 mg/dL (7-17); Calcium 8.1 mg/dL (8.4-10.2); Carbon Dioxide 28 mmol/L (22-30); Chloride 103 mmol/L (98-107); Estimated CRCL calculation 65 ml/min; Estimated Glomerular Filt Rate > 60; Glucose 282 mg/dL (65-110); Potassium 3.6 mmol/L (3.4-5.0); Sodium 133 mmol/L (137-145)
[2022-10-14] MEDS: LEVOTHYROXINE SODIUM 100 MCG TABLET PO (06:21)
[2022-10-14] MEDS: CENTRAL LINE FLUSH 10 ML IV PUSH ×3 (06:22→20:18)
[2022-10-14] MEDS: ENOXAPARIN 120 MG/0.8 ML SYRINGE 105 MG SUB-Q ×2 (07:56→20:17)
[2022-10-14] MEDS: ROSUVASTATIN 10 MG TABLET PO (07:57)
[2022-10-14] MEDS: INSULIN ASPART (*BKC) 100 UNITS/ML 10 UNITS SUB-Q ×3 (07:57→17:09)
[2022-10-14] MEDS: INSULIN ASPART (*BKC) 100 UNITS/ML SUB-Q ×3 (07:58→17:10)
[2022-10-14 08:09] LABS: Glucose Point of Care 302 mg/dl (65-105)
[2022-10-14] MEDS: AMIODARONE 360 MG/D5W 200 ML 360 MG/200 ML BAG 16.67 MG IV CONT (10:51)
[2022-10-14] MEDS: TOLNAFTATE 1% POWDER 45 GM BTL 1 APPLIC TOPICAL ×2 (10:53→20:17)
--- NOTE | 2022-10-14 10:53 | PM.IMPN ---
Progress Note: A&P Assessment and Plan (1) DKA (diabetic ketoacidosis): Code(s): E11.10 - Type 2 diabetes mellitus with ketoacidosis without coma Status: Acute Assessment and Plan: Resolved Continue Lantus and sliding scale. Will add mealtime insulin. Patient counseled on medication compliance Diabetic diet Consult paraeducator and dietitian (2) Atrial fibrillation with rapid ventricular response: Code(s): I48.91 - Unspecified atrial fibrillation Status: Acute Assessment and Plan: Patient currently on amiodarone drip. Cardiology consulted. Continue Coumadin. monitor INR Echo ordered (3) Hyperlipidemia: Code(s): E78.5 - Hyperlipidemia, unspecified Status: Acute Assessment and Plan: Continue rosuvastatin (4) Hypothyroidism: Code(s): E03.9 - Hypothyroidism, unspecified Status: Acute Assessment and Plan: Continue levothyroxine (5) Back pain: Code(s): M54.9 - Dorsalgia, unspecified Status: Acute Assessment and Plan: No focal neurological deficit or fall continue p.r.n. analgesic PT OT consult (6) Acute hypokalemia: Code(s): E87.6 - Hypokalemia Status: Acute Assessment and Plan: Improved with replacement Continue p.o. KCl (7) Hypomagnesemia: Code(s): E83.42 - Hypomagnesemia Status: Acute Assessment and Plan: Improved after replacement Subjective Date/time seen: 10/14/22 10:53 Heart rate controlled. No chest pain, shortness a breath Review of Systems Review of Systems: 8 point ROS obtained. Negative, unless stated in HPI. Exam Const: General: comfortable and no acute distress HENMT: Mouth: Yes moist mucous membranes Eyes: General: appearance normal, both eyes and all related structures Sclera: sclerae normal Resp: Effort & Inspection: normal respiratory effort Auscultation: clear to auscultation bilaterally Cardio: Rate: tachycardic Rhythm: abnormal rhythm irregularly irregular Heart sounds: no murmurs GI: GI Palp: Yes Soft to palpation Skin: General skin exam: normal color Neuro: Speech: normal speech Extrem: General: normal to inspection Psych: Mental Status: mental status grossly normal Affect: normal affect Objective Data Vital Signs Vital Signs: Vital Signs - 24 hr 10/13/22 12:00 10/13/22 12:00 10/13/22 12:00 Temperature 99.3 F Pulse Rate 93 116 H Respiratory Rate 18 Blood Pressure 104/71 Pulse Oximetry 98 Oxygen Delivery Room Air 10/13/22 14:00 10/13/22 15:14 10/13/22 16:00 Temperature Pulse Rate 101 H 113 H Respiratory Rate Blood Pressure Pulse Oximetry Oxygen Delivery Room Air 10/13/22 16:00 10/13/22 16:00 10/13/22 18:00 Temperature 97.8 F Pulse Rate 106 H 112 H Respiratory Rate 23 H Blood Pressure 101/60 Pulse Oximetry 97 Oxygen Delivery Room Air 10/13/22 20:00 10/13/22 21:33 10/13/22 20:00 Temperature 98.8 F Pulse Rate 10 L 107 H 102 H Respiratory Rate 16 Blood Pressure 101/51 L Pulse Oximetry 98 Oxygen Delivery 10/13/22 20:00 10/13/22 22:00 10/14/22 00:00 Temperature 98.1 F Pulse Rate 104 H 98 96 Respiratory Rate 16 93 H Blood Pressure 130/89 Pulse Oximetry 98 98 Oxygen Delivery Room Air 10/14/22 00:00 10/14/22 00:00 10/14/22 02:00 Temperature Pulse Rate 93 93 86 Respiratory Rate 93 H Blood Pressure Pulse Oximetry 98 Oxygen Delivery Room Air 10/14/22 04:00 10/14/22 04:00 10/14/22 04:00 Temperature 98.3 F Pulse Rate 97 93 93 Respiratory Rate 16 16 Blood Pressure 98/72 L Pulse Oximetry 96 96 Oxygen Delivery Room Air 10/14/22 05:58 10/14/22 08:00 10/14/22 08:50 Temperature 98.3 F Pulse Rate 96 103 H 85 Respiratory Rate 18 Blood Pressure 98/46 L Pulse Oximetry 98 91 Oxygen Delivery Room Air 10/14/22 08:00 10/14/22 09:00 Temperature Pulse Rate 114 H Respiratory Rate B
[2022-10-14] MEDS: cefTRIAXone 2 GM/NS 100 ML 2 GM/100 ML BAG IVPB (12:07)
[2022-10-14 13:01] LABS: Glucose Point of Care 309 mg/dl (65-105)
[2022-10-14] MEDS: ACETAMINOPHEN 325 MG TABLET 650 MG PO (13:50)
--- NOTE | 2022-10-14 16:05 | PM.PNCARD ---
Progress Note: A&P Assessment and Plan (1) DKA (diabetic ketoacidosis): Code(s): E11.10 - Type 2 diabetes mellitus with ketoacidosis without coma Status: Acute Assessment and Plan: Management as per the ICU team. (2) Atrial fibrillation with rapid ventricular response: Code(s): I48.91 - Unspecified atrial fibrillation Status: Acute Assessment and Plan: Known history of atrial fibrillation, went into RVR this hospitalization. Amiodarone drip started 10/12. Heart rate has been well controlled for 24 hours now on the drip. Will shift to p.o. amiodarone today. Continue diltiazem, can shift her to the long acting form Should discharge on amiodarone 200mg daily as maintenance dose. TTE 10/11/22 showed LVEF 40-45%, however, patient was in RVR during this study. Will eventually need repeat study once heart rate is controlled for better evaluation of LVEF. Patient to follow up with Dr. Matos as an outpatient. 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 On Warfarin. Getting therapeutic Lovenox while INR subtherapeutic. (4) Mild left ventricular systolic dysfunction: Code(s): I51.89 - Other ill-defined heart diseases Status: Acute Assessment and Plan: TTE 10/11/22 showed LVEF 40-45%, however, patient was in RVR during this study. Will eventually need repeat study once heart rate is controlled for better evaluation of LVEF. Subjective Date/time seen: 10/14/22 16:05 Interval history: Reason for visit: Atrial fibrillation with RVR HPI: We are consulted for atrial fibrillation with RVR. This is an 82 year old female with a history of atrial fibrillation on Warfarin, diabetes, hyperlipidemia who presented with back pain, nausea. In the ED, patient found to be hypotensive, in atrial fibrillation with RVR, hyperglycemic, metabolic acidosis. She was admitted to the ICU with DKA and possible sepsis. Patient's primary receiver stocker is Dr. Matos at [facility]. Last saw him in February 2022. Patient is supposed to be on Warfarin at home, but presented with subtherapeutic INR. She has been receiving therapeutic Lovenox here. When I asked her about the medications she takes at home, she states she takes whatever she's told to, but cannot provide any further details regarding her medications. Questionable medication compliance. Upon my evaluation, patient states she feels wonderful. Has an itchy nose, but no other complaints. In RVR but denies palpitations. Date of service 10/13: Patient sleeping comfortably this morning. HR is better now on Amiodarone drip. Date of service 10/14/2022: Heart rate remains well controlled on amiodarone drip. She denies any chest pain, palpitations, shortness of breath. Review of Systems Review of Systems: All systems reviewed & are unremarkable except as noted in HPI and below (HPI) Exam Const: General: comfortable and no acute distress HENMT: Mouth: Yes moist mucous membranes Eyes: General: appearance normal, both eyes and all related structures Sclera: sclerae normal Neck: Neck: supple Resp: Effort & Inspection: normal respiratory effort Auscultation: clear to auscultation bilaterally Cardio: Rate: regular rate Rhythm: abnormal rhythm irregularly irregular Heart sounds: no murmurs Skin: General skin exam: normal color Neuro: Speech: normal speech Extrem: General: normal to inspection Psych: Mental Status: mental status grossly normal Affect: normal affect Objective Data Vital Signs Vital Signs: Vital Signs - 24 hr 10/13/22 18:00 10/13/22 20:00 10/13/22 21:33 Temperature 37.1 C Pulse Rate 112 H 10 L 107 H Respiratory Rate 16 Blood Pressure 101/51 L Pulse Oximetry 98 Oxygen Delivery 10/13/22 20:00 10/13/22 20:00 10/13/22 22:00 Temperature Pulse Rate 102 H 104 H 98 Respiratory Rate 16 Blood Pr
[2022-10-14 16:46] LABS: Glucose Point of Care 285 mg/dl (65-105)
[2022-10-14] MEDS: WARFARIN (*PBKC) 5 MG TABLET PO (17:10)
[2022-10-14] MEDS: AMIODARONE HCL 200 MG TABLET 400 MG PO (17:10)
[2022-10-14] MEDS: HYDROcodone/acetaminophen (*CRX) 5-325 MG TABLET 1 TAB PO (18:21)
[2022-10-14] MEDS: ALPRAZolam (*CRX) 0.25 MG TABLET PO (18:22)
[2022-10-14] MEDS: INSULIN GLARGINE (*BKC) 100 UNITS/ML 30 UNITS SUB-Q (20:18)
[2022-10-14 20:19] LABS: Glucose Point of Care 352 mg/dl (65-105)
[2022-10-15] VITALS (14 sets, daily range): BP systolic 107–135; BP diastolic 58–79; PULSE 64–111; RESP 16–22; TEMP 36.1–36.6; O2SAT 96–100
[2022-10-15 05:28] LABS: Immature Platelet Fraction Pct 4.9 % (0.9-11.2)
[2022-10-15 05:29] LABS: Hematocrit 33.7 % (37.0-47.0); Hemoglobin 11.2 g/dL (12.0-15.0); Mean Corpuscular HGB Conc 33.2 g/dl (32-36); Mean Corpuscular Hemoglobin 34.3 pg (26-34); Mean Corpuscular Volume 103.1 fl (80-100); Red Blood Count 3.27 M/mm3 (4.2-5.4); Red Cell Distribution Width 14.3 % (11.5-14.5); White Blood Count 7.1 K/mm3 (4.5-10.0)
[2022-10-15] MEDS: CENTRAL LINE FLUSH 10 ML IV PUSH ×3 (05:29→21:13)
[2022-10-15 05:30] LABS: Mean Platelet Volume 10.8 fl (7.4-10.4); Platelet Count Result 112 k/mm3 (150-375)
[2022-10-15] MEDS: dilTIAZem HCL 60 MG TABLET PO (05:30)
[2022-10-15] MEDS: LEVOTHYROXINE SODIUM 100 MCG TABLET PO (05:30)
[2022-10-15 05:37] LABS: Alanine Aminotransferase 18 U/L (6-35); Albumin Level 2.9 g/dL (3.5-5.1); Alkaline Phosphatase 115 U/L (38-126); Anion Gap 2 mmol/L (8-16); Aspartate Amino Transferase 38 U/L (14-36); Bilirubin,Total 0.5 mg/dL (0.2-1.3); Blood Urea Nitrogen 16 mg/dL (7-17); Calcium 8.1 mg/dL (8.4-10.2); Carbon Dioxide 29 mmol/L (22-30); Chloride 103 mmol/L (98-107); Estimated CRCL calculation 65 ml/min; Estimated Glomerular Filt Rate > 60; Glucose 245 mg/dL (65-110); Magnesium 1.7 mg/dL (1.6-2.3); Sodium 134 mmol/L (137-145)
[2022-10-15 05:40] LABS: INR 1.5; Prothrombin Time 17.7 Seconds (11.1-14.7)
[2022-10-15] MEDS: INSULIN ASPART (*BKC) 100 UNITS/ML 10 UNITS SUB-Q (07:52)
[2022-10-15] MEDS: INSULIN ASPART (*BKC) 100 UNITS/ML SUB-Q ×3 (07:53→17:22)
[2022-10-15] MEDS: ENOXAPARIN 120 MG/0.8 ML SYRINGE 105 MG SUB-Q ×2 (07:53→21:13)
[2022-10-15] MEDS: ROSUVASTATIN 10 MG TABLET PO (07:54)
[2022-10-15] MEDS: AMIODARONE HCL 200 MG TABLET 400 MG PO ×2 (07:54→17:20)
[2022-10-15] MEDS: TOLNAFTATE 1% POWDER 45 GM BTL 1 APPLIC TOPICAL ×2 (07:54→21:02)
[2022-10-15 08:40] LABS: Glucose Point of Care 281 mg/dl (65-105)
[2022-10-15] MEDS: HYDROcodone/acetaminophen (*CRX) 5-325 MG TABLET 1 TAB PO ×2 (10:14→21:37)
[2022-10-15] MEDS: ALPRAZolam (*CRX) 0.25 MG TABLET PO (10:27)
--- NOTE | 2022-10-15 10:49 | PM.IMPN ---
Progress Note: A&P Assessment and Plan (1) DKA (diabetic ketoacidosis): Code(s): E11.10 - Type 2 diabetes mellitus with ketoacidosis without coma Status: Acute Assessment and Plan: Resolved Blood sugars uncontrolled. Will increase Lantus to 30 units and increase lispro to 15 units t.i.d. Diabetic diet Consult certified diabetes educator and dietitian (2) Atrial fibrillation with rapid ventricular response: Code(s): I48.91 - Unspecified atrial fibrillation Status: Acute Assessment and Plan: Patient transitioned from amiodarone drip to p.o. amiodarone. Cardiology consulted. Continue Coumadin. monitor INR Will switch Cardizem to long-acting Cardizem CD, per Cardiology recommendations (3) Hyperlipidemia: Code(s): E78.5 - Hyperlipidemia, unspecified Status: Acute Assessment and Plan: Continue rosuvastatin (4) Hypothyroidism: Code(s): E03.9 - Hypothyroidism, unspecified Status: Acute Assessment and Plan: Continue levothyroxine (5) Back pain: Code(s): M54.9 - Dorsalgia, unspecified Status: Acute Assessment and Plan: No focal neurological deficit or fall continue p.r.n. analgesic PT OT consult Subjective Date/time seen: 10/15/22 10:49 Patient asymptomatic. Review of Systems Review of Systems: All systems reviewed & are unremarkable except as noted in HPI and below (HPI) Exam Const: General: comfortable and no acute distress HENMT: Mouth: Yes moist mucous membranes Eyes: General: appearance normal, both eyes and all related structures Sclera: sclerae normal Neck: Neck: supple Resp: Effort & Inspection: normal respiratory effort Auscultation: clear to auscultation bilaterally Cardio: Rate: regular rate Rhythm: abnormal rhythm irregularly irregular Heart sounds: no murmurs Skin: General skin exam: normal color Neuro: Speech: normal speech Extrem: General: normal to inspection Psych: Mental Status: mental status grossly normal Affect: normal affect Objective Data Vital Signs Vital Signs: Vital Signs - 24 hr 10/14/22 12:00 10/14/22 12:00 10/14/22 12:00 Temperature 98 F Pulse Rate 90 101 H Respiratory Rate 18 Blood Pressure 112/66 Pulse Oximetry 98 Oxygen Delivery Room Air 10/14/22 14:00 10/14/22 16:00 10/14/22 17:10 Temperature Pulse Rate 92 83 100 Respiratory Rate Blood Pressure Pulse Oximetry Oxygen Delivery 10/14/22 16:00 10/14/22 16:00 10/14/22 18:00 Temperature 97.5 F L Pulse Rate 92 104 H Respiratory Rate 16 Blood Pressure 110/63 Pulse Oximetry 98 Oxygen Delivery Room Air 10/14/22 20:00 10/14/22 20:00 10/14/22 20:00 Temperature 98.3 F Pulse Rate 97 97 97 Respiratory Rate 18 18 Blood Pressure 120/78 Pulse Oximetry 98 98 Oxygen Delivery Room Air 10/14/22 21:30 10/15/22 00:00 10/15/22 00:00 Temperature 97.5 F L Pulse Rate 99 86 74 Respiratory Rate 16 Blood Pressure 121/79 Pulse Oximetry 99 Oxygen Delivery 10/15/22 00:00 10/15/22 02:00 10/15/22 04:00 Temperature 97.6 F Pulse Rate 74 92 87 Respiratory Rate 16 16 Blood Pressure 116/74 Pulse Oximetry 99 98 Oxygen Delivery Room Air 10/15/22 04:00 10/15/22 04:00 10/15/22 06:00 Temperature Pulse Rate 81 81 80 Respiratory Rate 16 Blood Pressure Pulse Oximetry 98 Oxygen Delivery Room Air 10/15/22 07:54 10/15/22 08:00 10/15/22 08:00 Temperature 96.9 F L Pulse Rate 104 H 91 111 H Respiratory Rate 18 Blood Pressure 117/72 Pulse Oximetry 100 Oxygen Delivery 10/15/22 08:00 10/15/22 10:00 Temperature Pulse Rate 103 H Respiratory Rate Blood Pressure Pulse Oximetry Oxygen Delivery Room Air Intake/Output Intake/Output: Intake & Output 10/12/22 10/13/22 10/14/22 10/15/22 23:59 23:59 23:59 23:59 Intake Total 4390 / 4390 3326 / 3326 2520 / 2520 500 / 500 Output Total 2024 1675 / 1675 725
[2022-10-15 12:42] LABS: Glucose Point of Care 343 mg/dl (65-105)
[2022-10-15] MEDS: INSULIN ASPART (*BKC) 100 UNITS/ML 15 UNITS SUB-Q ×2 (12:46→17:22)
[2022-10-15] MEDS: cefTRIAXone 2 GM/NS 100 ML 2 GM/100 ML BAG IVPB (12:47)
[2022-10-15 17:13] LABS: Glucose Point of Care 268 mg/dl (65-105)
[2022-10-15] MEDS: WARFARIN (*PBKC) 5 MG TABLET PO (17:24)
[2022-10-15] MEDS: ACETAMINOPHEN 325 MG TABLET 650 MG PO (17:44)
[2022-10-15 19:40] LABS: Glucose Point of Care 274 mg/dl (65-105)
[2022-10-15] MEDS: INSULIN GLARGINE (*BKC) 100 UNITS/ML 40 UNITS SUB-Q (21:10)
[2022-10-16] VITALS (13 sets, daily range): BP systolic 100–143; BP diastolic 55–80; PULSE 77–138; RESP 14–22; TEMP 36.1–36.7; O2SAT 95–100
[2022-10-16 04:02] LABS: Hematocrit 35.9 % (37.0-47.0); Hemoglobin 11.8 g/dL (12.0-15.0); Immature Platelet Fraction Pct 5.8 % (0.9-11.2); Mean Corpuscular HGB Conc 32.9 g/dl (32-36); Mean Corpuscular Hemoglobin 34.2 pg (26-34); Mean Corpuscular Volume 104.1 fl (80-100); Mean Platelet Volume 10.8 fl (7.4-10.4); Platelet Count Result 134 k/mm3 (150-375); Red Blood Count 3.45 M/mm3 (4.2-5.4); Red Cell Distribution Width 14.6 % (11.5-14.5); White Blood Count 9.5 K/mm3 (4.5-10.0)
[2022-10-16 04:10] LABS: INR 1.5; Prothrombin Time 17.5 Seconds (11.1-14.7)
[2022-10-16] MEDS: LEVOTHYROXINE SODIUM 100 MCG TABLET PO (05:47)
[2022-10-16] MEDS: CENTRAL LINE FLUSH 10 ML IV PUSH ×3 (05:47→20:44)
[2022-10-16 07:15] LABS: Alanine Aminotransferase 16 U/L (6-35); Alkaline Phosphatase 129 U/L (38-126); Anion Gap 2 mmol/L (8-16); Aspartate Amino Transferase 26 U/L (14-36); Bilirubin,Total 0.5 mg/dL (0.2-1.3); Blood Urea Nitrogen 14 mg/dL (7-17); Calcium 8.4 mg/dL (8.4-10.2); Carbon Dioxide 31 mmol/L (22-30); Chloride 103 mmol/L (98-107); Estimated CRCL calculation 57 ml/min; Estimated Glomerular Filt Rate > 60; Glucose 218 mg/dL (65-110); Magnesium 1.6 mg/dL (1.6-2.3); Potassium 3.9 mmol/L (3.4-5.0); Sodium 136 mmol/L (137-145)
[2022-10-16] MEDS: INSULIN ASPART (*BKC) 100 UNITS/ML 15 UNITS SUB-Q ×3 (07:51→16:45)
[2022-10-16] MEDS: INSULIN ASPART (*BKC) 100 UNITS/ML SUB-Q ×3 (07:52→16:44)
[2022-10-16] MEDS: AMIODARONE HCL 200 MG TABLET 400 MG PO ×2 (07:58→16:46)
[2022-10-16] MEDS: ROSUVASTATIN 10 MG TABLET PO (07:59)
[2022-10-16] MEDS: TOLNAFTATE 1% POWDER 45 GM BTL 1 APPLIC TOPICAL ×2 (07:59→20:44)
[2022-10-16] MEDS: ENOXAPARIN 120 MG/0.8 ML SYRINGE 105 MG SUB-Q ×2 (07:59→20:43)
[2022-10-16 08:28] LABS: Glucose Point of Care 217 mg/dl (65-105)
[2022-10-16] MEDS: METOPROLOL TARTRATE INJ 5 MG/5 ML VIAL IV PUSH (09:13)
--- NOTE | 2022-10-16 09:24 | ADMGEN ---
This patient, Damaris Kramer, was admitted to IMU Room 202-. Patient/family oriented to hospital policies and general routines including ID bracelet, bed and alarms, visiting hours, pain management, procedures, bathroom and other care routines, personal items, smoking policy, room service/diet, and visiting hours. Information on how to activate the Rapid Response Team has been discussed. Patient/Family are encouraged to report perceived risks to care and to ask questions if they do not understand what they are told or what they should do.
[2022-10-16 11:44] LABS: Glucose Point of Care 233 mg/dl (65-105)
[2022-10-16] MEDS: cefTRIAXone 2 GM/NS 100 ML 2 GM/100 ML BAG IVPB (12:22)
--- NOTE | 2022-10-16 12:56 | PM.IMPN ---
Progress Note: A&P Assessment and Plan (1) DKA (diabetic ketoacidosis): Code(s): E11.10 - Type 2 diabetes mellitus with ketoacidosis without coma Status: Acute Assessment and Plan: Resolved, blood sugars uncontrolled. Blood glucose reviewed 4/2 Lantus increased to 40 units and increase lispro to 15 units TID Diabetic diet, consult nurses educator and dietitian (2) Atrial fibrillation with rapid ventricular response: Code(s): I48.91 - Unspecified atrial fibrillation Status: Acute Assessment and Plan: Patient transitioned from amiodarone drip to p.o. amiodarone. Cardiology consulted. Continue Coumadin. Monitor INR 1.5 4/2 Will switch Cardizem to long-acting Cardizem CD, per Cardiology recommendations (3) Hyperlipidemia: Code(s): E78.5 - Hyperlipidemia, unspecified Status: Acute Assessment and Plan: Continue rosuvastatin (4) Hypothyroidism: Code(s): E03.9 - Hypothyroidism, unspecified Status: Acute Assessment and Plan: Continue levothyroxine (5) Back pain: Code(s): M54.9 - Dorsalgia, unspecified Status: Acute Assessment and Plan: No focal neurological deficit or fall Continue p.r.n. analgesic PT/OT consult Plan DVT prophylaxis with Lovenox bridging to Coumadin, monitor INR, 1.5 4/2 GI prophylaxis not indicated Code status full code Subjective Date/time seen: 10/16/22 12:56 Interval history: 82-year-old female diabetes, hypertension, hypothyroidism, AFib on anticoagulation is presenting with generalized weakness, nausea, vomiting and was admitted to the ICU with AFib with RVR, DKA, sepsis concerning for UTI with positive blood cultures. No overnight events noted. No chest pain or shortness of breath. No nausea, vomiting or diarrhea. No fevers or chills. Review of Systems Review of Systems: 12 point review of systems was assessed and was negative except as noted in the HPI Exam Narrative: General: No acute distress, alert and oriented per baseline HEENT: Atraumatic, normocephalic, mucous membranes moist CV: Regular rate and rhythm, S1, S2 Lungs: Clear to auscultation bilaterally, no rales or crackles noted, no wheezes, good air entry Abdomen: Soft, nontender, nondistended Extremities: Normal to inspection, bilateral brawny venous stasis dermatitis with 2+ nonpitting stasis edema noted Skin: No rashes noted, no lesions or wounds seen Psych: Euthymic, normal affect Objective Data Vital Signs Vital Signs: Vital Signs - 24 hr 10/15/22 14:00 10/15/22 16:00 10/15/22 16:00 Temperature 97.9 F Pulse Rate 107 H 64 103 H Respiratory Rate 22 H Blood Pressure 135/68 Pulse Oximetry 96 Oxygen Delivery 10/15/22 17:20 10/15/22 18:00 10/15/22 20:00 Temperature 97.4 F L Pulse Rate 100 108 H 91 Respiratory Rate 20 Blood Pressure 107/58 L Pulse Oximetry 99 Oxygen Delivery 10/15/22 23:40 10/15/22 20:00 10/16/22 00:00 Temperature 97.7 F Pulse Rate 84 96 83 Respiratory Rate 20 Blood Pressure 124/63 Pulse Oximetry 97 Oxygen Delivery 10/15/22 20:00 10/16/22 04:00 10/16/22 04:00 Temperature 97.7 F Pulse Rate 104 H 117 H Respiratory Rate 20 Blood Pressure 100/55 L Pulse Oximetry 97 Oxygen Delivery Room Air 10/16/22 07:58 10/16/22 08:00 10/16/22 08:00 Temperature Pulse Rate 122 H 128 H Respiratory Rate Blood Pressure Pulse Oximetry Oxygen Delivery Room Air 10/16/22 08:30 10/16/22 09:13 10/16/22 12:22 Temperature 96.9 F L 98.0 F Pulse Rate 108 H 138 H 77 Respiratory Rate 22 H 20 Blood Pressure 130/69 103/68 Pulse Oximetry 100 98 Oxygen Delivery Intake/Output Intake/Output: Intake & Output 10/13/22 10/14/22 10/15/22 10/16/22 23:59 23:59 23:59 23:59 Intake Total 0700 2760 1710 360 Output Total 2410 711 0722 650 Balance 1651 1795 235 -290 Meds/Results Medications
[2022-10-16 16:32] LABS: Glucose Point of Care 237 mg/dl (65-105)
[2022-10-16] MEDS: WARFARIN (*PBKC) 5 MG TABLET PO (16:47)
[2022-10-16] MEDS: HYDROcodone/acetaminophen (*CRX) 5-325 MG TABLET 1 TAB PO ×2 (17:26→22:16)
--- NOTE | 2022-10-16 18:38 | PC.NURSE ---
This patient, Damaris Kramer, was transferred to [facility] on 10/16/22 at 1840. Personal belongings sent with patient. Report given to NICOL Augustine. Appropriate documentation sent with patient.
[2022-10-16] MEDS: INSULIN GLARGINE (*BKC) 100 UNITS/ML 40 UNITS SUB-Q (20:43)
[2022-10-16] MEDS: ACETAMINOPHEN 325 MG TABLET 650 MG PO (20:49)
[2022-10-16 21:00] LABS: Glucose Point of Care 187 mg/dl (65-105)
[2022-10-17] VITALS (7 sets, daily range): BP systolic 106–138; BP diastolic 61–96; PULSE 101–137; RESP 14–20; TEMP 36.1–36.5; O2SAT 98
[2022-10-17] MEDS: HYDROcodone/acetaminophen (*CRX) 5-325 MG TABLET 2 TAB PO ×2 (01:16→13:29)
[2022-10-17] MEDS: HYDROcodone/acetaminophen (*CRX) 5-325 MG TABLET 1 TAB PO ×2 (04:13→09:25)
[2022-10-17 04:39] LABS: INR 1.6; Prothrombin Time 18.3 Seconds (11.1-14.7)
[2022-10-17] MEDS: LEVOTHYROXINE SODIUM 100 MCG TABLET PO (05:36)
[2022-10-17] MEDS: CENTRAL LINE FLUSH 10 ML IV PUSH (05:36)
[2022-10-17] MEDS: AMIODARONE HCL 200 MG TABLET 400 MG PO (08:42)
[2022-10-17] MEDS: ENOXAPARIN 120 MG/0.8 ML SYRINGE 105 MG SUB-Q (08:42)
[2022-10-17] MEDS: ROSUVASTATIN 10 MG TABLET PO (08:43)
[2022-10-17] MEDS: TOLNAFTATE 1% POWDER 45 GM BTL 1 APPLIC TOPICAL (08:43)
[2022-10-17] MEDS: INSULIN ASPART (*BKC) 100 UNITS/ML SUB-Q ×2 (08:43→12:14)
[2022-10-17 08:44] LABS: Glucose Point of Care 205 mg/dl (65-105)
[2022-10-17] MEDS: INSULIN ASPART (*BKC) 100 UNITS/ML 15 UNITS SUB-Q ×2 (08:44→12:14)
--- NOTE | 2022-10-17 09:09 | PM.IMPN ---
Progress Note: A&P Assessment and Plan (1) DKA (diabetic ketoacidosis): Code(s): E11.10 - Type 2 diabetes mellitus with ketoacidosis without coma Status: Acute Assessment and Plan: Resolved, blood sugars uncontrolled Blood glucose reviewed 10/17, a1c was 12 on 10/17 Lantus increased to 45 units and increase lispro to 15 units TID Diabetic diet, consult perinatal educator and dietitian Discharge to SNF for glucose management (2) Atrial fibrillation with rapid ventricular response: Code(s): I48.91 - Unspecified atrial fibrillation Status: Acute Assessment and Plan: Patient transitioned from amiodarone drip to p.o. amiodarone. Cardiology consulted. Continue Coumadin. Monitor INR 1.6 10/17 Will switch Cardizem to long-acting Cardizem CD, per Cardiology recommendations (3) Hyperlipidemia: Code(s): E78.5 - Hyperlipidemia, unspecified Status: Acute Assessment and Plan: Continue rosuvastatin (4) Hypothyroidism: Code(s): E03.9 - Hypothyroidism, unspecified Status: Acute Assessment and Plan: Continue levothyroxine (5) Back pain: Code(s): M54.9 - Dorsalgia, unspecified Status: Acute Assessment and Plan: No focal neurological deficit or fall Continue p.r.n. analgesic PT/OT consult Plan DVT prophylaxis with Lovenox bridging to Coumadin, INR still subtherapeutic, will need to continue to bridge with lovenox GI prophylaxis not indicated Code status full code Subjective Date/time seen: 10/17/22 09:09 Interval history: 82-year-old female diabetes, hypertension, hypothyroidism, AFib on anticoagulation is presenting with generalized weakness, nausea, vomiting and was admitted to the ICU with AFib with RVR, DKA, sepsis concerning for UTI with positive blood cultures. No overnight events noted. No chest pain or shortness of breath. No nausea, vomiting or diarrhea. No fevers or chills. Review of Systems Review of Systems: 12 point review of systems was assessed and was negative except as noted in the HPI Exam Narrative: General: No acute distress, alert and oriented per baseline HEENT: Atraumatic, normocephalic, mucous membranes moist CV: Regular rate and rhythm, S1, S2 Lungs: Clear to auscultation bilaterally, no rales or crackles noted, no wheezes, good air entry Abdomen: Soft, nontender, nondistended Extremities: Normal to inspection, bilateral brawny venous stasis dermatitis with 2+ nonpitting stasis edema noted Skin: No rashes noted, no lesions or wounds seen Psych: Euthymic, normal affect Objective Data Vital Signs Vital Signs: Vital Signs - 24 hr 10/16/22 09:13 10/16/22 12:22 10/16/22 12:00 Temperature 98.0 F Pulse Rate 138 H 77 118 H Respiratory Rate 20 Blood Pressure 103/68 Pulse Oximetry 98 10/16/22 16:32 10/16/22 16:46 10/16/22 16:00 Temperature 97.5 F L Pulse Rate 97 119 H 119 H Respiratory Rate 20 Blood Pressure 121/62 Pulse Oximetry 95 10/16/22 22:00 10/16/22 20:00 10/17/22 00:00 Temperature 97.8 F Pulse Rate 133 H 119 H 105 H Respiratory Rate 14 Blood Pressure 143/80 H Pulse Oximetry 99 10/17/22 04:00 10/17/22 05:58 10/17/22 08:42 Temperature 96.9 F L Pulse Rate 101 H 110 H 124 H Respiratory Rate 14 Blood Pressure 106/61 Pulse Oximetry 98 Intake/Output Intake/Output: Intake & Output 10/14/22 10/15/22 10/16/22 10/17/22 23:59 23:59 23:59 23:59 Intake Total 2520 1710 1430 750 Output Total 725 1475 950 450 Balance 1795 235 480 300 Meds/Results Medications: Active Medications Generic Name Dose Route Start Last Admin Trade Name Joseq PRN Reason Stop Dose Admin Acetaminophen 650 mg 10/11/22 13:28 10/16/22 20:49 Acetaminophen 325 Mg Tablet PO 650 mg Q4H PRN Administration Headache, fever, Pain 1-3 Hydrocodone Bitart/Acetaminophen 1 tab 10/11/22 13:28 10/17/22 04:13 Hydrocodone
--- NOTE | 2022-10-17 09:16 | PM.DS ---
DS: Admitting Diagnosis Discharge Date 10/17/22 Admitting Diagnosis dka DS: Discharge Diagnosis Discharge Diagnosis (1) DKA (diabetic ketoacidosis): Code(s): E11.10 - Type 2 diabetes mellitus with ketoacidosis without coma Status: Acute Assessment and Plan: Resolved, blood sugars uncontrolled Blood glucose reviewed 10/17, a1c was 12 on 10/17 Lantus increased to 45 units and increase lispro to 15 units TID Diabetic diet, consult certified lactation educator and dietitian Discharge to SNF for glucose management (2) Atrial fibrillation with rapid ventricular response: Code(s): I48.91 - Unspecified atrial fibrillation Status: Acute Assessment and Plan: Patient transitioned from amiodarone drip to p.o. amiodarone. Cardiology consulted. Continue Coumadin. Monitor INR 1.6 10/17, bridging with lovenox until INR is > 2 Will switch Cardizem to long-acting Cardizem CD, per Cardiology recommendations (3) Hyperlipidemia: Code(s): E78.5 - Hyperlipidemia, unspecified Status: Acute Assessment and Plan: Continue rosuvastatin (4) Hypothyroidism: Code(s): E03.9 - Hypothyroidism, unspecified Status: Acute Assessment and Plan: Continue levothyroxine (5) Back pain: Code(s): M54.9 - Dorsalgia, unspecified Status: Acute Assessment and Plan: No focal neurological deficit or fall Continue p.r.n. analgesic PT/OT consult (6) Sepsis: Code(s): A41.9 - Sepsis, unspecified organism Status: Acute Assessment and Plan: 1 of 2 blood cultures as well as urine culture positive for E coli, repeat blood cultures pending--f/u at SNF/rehab, all symptoms resolved, no signs of sepsis at this time Started on Zosyn 10/12, switched to Rocephin 2 g daily 10/13, on day 6 of abx, will continue augmentin at d/c to complete 10 day course Plan DVT prophylaxis with Lovenox bridging to Coumadin, INR still subtherapeutic, will need to continue to bridge with lovenox GI prophylaxis not indicated Code status full code DS: Summary Hospital Course Hospital Course: 82-year-old female presenting with DKA, AFib with RVR, sepsis from UTI. She was admitted to the ICU on DKA protocol. A1c was found to be 12. She was then transitioned to Lantus with sliding scale insulin. 1 of 2 blood cultures as well as urine culture positive for E coli, repeat blood cultures pending--f/u at SNF/rehab, all symptoms resolved, no signs of sepsis at this time Started on Zosyn 10/12, switched to Rocephin 2 g daily 10/13, on day 6 of abx, will continue augmentin at d/c to complete 10 day course Known history of atrial fibrillation, currently in RVR. Blood pressures are soft, I do not think she will tolerate a decent dose of beta dany. Will start Amiodarone. TTE 10/11/22 showed LVEF 40-45%, however, patient was in RVR during this study. Will eventually need repeat echo once heart rate is controlled for better evaluation of LVEF. Patient to follow up with Dr. Matos as an outpatient. See above and med rec for details. Time Spent with Patient Time attestation: Total time spent providing and/or coordinating discharge services: Exam Narrative: General: No acute distress, alert and oriented per baseline HEENT: Atraumatic, normocephalic, mucous membranes moist CV: Regular rate and rhythm, S1, S2 Lungs: Clear to auscultation bilaterally, no rales or crackles noted, no wheezes, good air entry Abdomen: Soft, nontender, nondistended Extremities: Normal to inspection, bilateral brawny venous stasis dermatitis with 2+ nonpitting stasis edema noted Skin: No rashes noted, no lesions or wounds seen Psych: Euthymic, normal affect DS: Data Data Completed and Pending Labs on day of discharge: Labs from last 24 hours 10/17/22 10/17/22 10/17/22 08:12 04:16 04:16 PT INR POC Capillary Glucose 205 H Hemoglobin A1c 12.0 H TSH 16.700 H
[2022-10-17] MEDS: ALPRAZolam (*CRX) 0.25 MG TABLET PO ×2 (09:25→13:29)
[2022-10-17] MEDS: INSULIN GLARGINE (*BKC) 100 UNITS/ML SUB-Q (09:26)
[2022-10-17 11:46] LABS: Glucose Point of Care 234 mg/dl (65-105)
[2022-10-17] MEDS: ACETAMINOPHEN 325 MG TABLET 650 MG PO (11:51)
[2022-10-17 12:34] LABS: EDCOVIDSCREEN Negative (Negative)
[2022-10-17] MEDS: NEOMYCIN/POLYMYXIN/BACITRACIN OINTMENT PACKET 1 PACKET (13:17)
--- NOTE | 2022-10-17 13:17 | PC.NURSE ---
Attempted to call report to [facility] at [phone] twice. No answer from receiving RN both times. Will attempt to call report again in 15 minutes.
[2022-10-17] MEDS: ACETAMINOPHEN 325 MG TABLET PO (14:32)
== END 2022-10-17 14:45 | DRG 871 ==
LOC: ANHED 11:34 → ANHICU 11:38 → ANHIMU 10-13 18:20 → ANH3MEDSUR 10-16 18:47
PROVIDERS: Emergency Medicine; Hospitalist; Internal Medicine; Physician Assistant; Admitting Provider Internal Medicine; Emergency Provider Emergency Medicine; PCP Internal Medicine; Visit Provider Student in an Organized Health Care Education/Training Program
DX: A41.51 Sepsis due to Escherichia coli [E. coli] (principal); E11.10 Type 2 diabetes mellitus with ketoacidosis without coma; N39.0 Urinary tract infection, site not specified; E78.5 Hyperlipidemia, unspecified; E03.9 Hypothyroidism, unspecified; I48.0 Paroxysmal atrial fibrillation; M47.816 Spondylosis without myelopathy or radiculopathy, lumbar region; M41.85 Other forms of scoliosis, thoracolumbar region; E83.42 Hypomagnesemia; E87.6 Hypokalemia; Z20.822 Contact with and (suspected) exposure to COVID-19; G47.30 Sleep apnea, unspecified; M25.552 Pain in left hip; M25.551 Pain in right hip; E86.0 Dehydration; Z79.01 Long term (current) use of anticoagulants; Z91.148 Patient's other noncompliance with medication regimen for other reason
CPT/HCPCS: 36415; 36569; 36600; 71045; 71250; 74176; 80048; 80053; 81001; 82010; 82550; 82805; 82948; 83036; 83605; 83690; 83735; 83880; 84100; 84145; 84439; 84443; 84480; 84484; 85025; 85027; 85055; 85610; 85652; 85730; 86140; 87040; 87077; 87086; 87186; 87426; 93005; 93306; 96361; 96365; 96367; 96368; 96375; 96376; 97110; 97161; 97165; 97530; 99285; A9270; C1751; C9803; J0131; J0282; J0696; J1650; J1815; J1956; J2270; J2543; J3370; J3475; J3480; J7030; J7050; J7120

== ENCOUNTER 2022-10-19 22:32 | Emergency (ER) | payer MEDICARE, SELFPAY ==
--- NOTE | ~2022-10-19 | CT_ITS ---
EXAMINATION: CT abdomen pelvis wo con DATE: 10/20/2022 01:11 INDICATION: Small bowel obstruction. TECHNIQUE: Computed tomography (CT) of the abdomen and pelvis was performed without intravenous contr ast. Automated exposure control and iterative reconstruction technique were employed. The dose-length product was 1512.73 mGy-cm. COMPARISON: CT abdomen and pelvis 10/11/2022 FINDINGS: The visualized portions of the lung bases demonstrate moderate-sized right and small left p leural effusions. There is atelectasis bilaterally with an inferior and dependent predominance. There is a 4 mm nodule in right lower lobe, likely benign. Cardiomegaly is noted. There are coronary arter y calcifications. No pericardial effusion. The liver is normal. There are changes of cholecystectomy. The spleen, pancreas, and adrenal glands are normal. There are cysts in the kidneys measuring up to 2.1 cm on the right. There is a large right iliopsoas hematoma with large distribution of extension i nto the right retroperitoneal fat. There is a left iliopsoas hematoma. There are bilateral inguinal h ernias containing fat. There are no pathologically enlarged lymph nodes. There is no free intraperito woo fluid. There are changes of ventral hernia repair. There are no dilated loops of bowel. There is severe lumbar spondylosis. There are bridging endplate osteophytes at multiple levels in the spine, consistent with diffuse idiopathic skeletal hyperostosis (DISH). IMPRESSION: 1. Bilateral iliopsoas hematomas with large distribution of extension into the right retroperitoneal fat. 2. Moderate-sized right and small left pleural effusions. Reviewed, dictated and finalized at location A.
--- NOTE | ~2022-10-19 | XR_ITS ---
EXAMINATION: XR chest port-a-cath/central DATE: 10/20/2022 05:18 INDICATION: Central line placement TECHNIQUE: frontal view of the chest was obtained. COMPARISON: Chest radiograph dated 10/20/2022 at 12:53 AM FINDINGS: Interval placement of a left internal jugular central venous catheter with distal tip at the caudal s uperior vena cava. Unchanged elevation the right hemidiaphragm. Increasing opacities in the bilateral lower lung zones. No pneumothorax. Large calcified nodule in the left upper lung consistent with old granulomatous disease. Mild cardiomegaly. IMPRESSION: 1. Left internal jugular central venous catheter tip at the caudal superior vena cava. No pneumothora x. 2. Increasing opacities in the bilateral lower lung zones consistent with small pleural effusion, ate lectasis, pneumonia or some combination thereof. 3. Cardiomegaly. Reviewed, dictated and finalized at location A. IMPRESSION: 1. Left internal jugular central venous catheter tip at the caudal superior deneen a cava. No pneumothorax. 2. Increasing opacities in the bilateral lower lung zones consistent with small pleural effusion, atelectasis, pneumonia or some combination thereof. 3. Cardiomegaly.
--- NOTE | ~2022-10-19 | XR_ITS ---
EXAMINATION: XR pelvis 1-2V DATE: 10/20/2022 01:07 INDICATION: Hip pain TECHNIQUE: An anteroposterior view of the pelvis was obtained. COMPARISON: CT abdomen and pelvis dated 10/03/2022 FINDINGS: Alignment is normal. No fracture. 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 Mod erate lower lumbar spondylosis. Mild osteitis pubis. Soft tissues are unremarkable. IMPRESSION: 1. Degenerative skeletal changes including mild to moderate bilateral hip osteoarthritis. No acute os seous abnormality. Reviewed, dictated and finalized at location A. IMPRESSION: 1. Degenerative skeletal changes including mild to moderate bilateral hip osteo arthritis. No acute osseous abnormality.
--- NOTE | ~2022-10-19 | XR_ITS ---
EXAMINATION: XR chest 1V DATE: 10/20/2022 01:07 INDICATION: Dyspnea TECHNIQUE: frontal view of the chest was obtained. COMPARISON: Chest radiograph dated 10/11/2022 FINDINGS: Unchanged elevation of the right hemidiaphragm. Mild opacities at the bilateral lung bases. Calcified nodule left upper lung zone consistent with old granulomatous disease. No pneumothorax or definitive pleural effusion. Mild cardiomegaly. Cholecystectomy clips in right upper quadrant. IMPRESSION: 1. Unchanged elevation of the right hemidiaphragm. 2. Opacities at the bilateral lung bases which could represent atelectasis and/or pneumonia. Reviewed, dictated and finalized at location A. IMPRESSION: 1. Unchanged elevation of the right hemidiaphragm. 2. Opacities at the bilateral lung bases which could represent atelectasis and/ or pneumonia.
--- NOTE | ~2022-10-19 | CT_ITS ---
EXAMINATION: CT brain wo con DATE: 10/20/2022 05:45 INDICATION: Head bleed TECHNIQUE: Computed tomography (CT) of the head was performed without intravenous contrast. Sagittal and coronal reconstructions were performed. The mA was adjusted according to patient size. Iterative reconstruction technique was employed. The dose-length product was 681.00 mGy-cm. COMPARISON: None FINDINGS: No fracture. Coarse dystrophic calcification at the periphery of a 2.7 cm cystic lesion in the anteri or right frontal lobe without associated mass effect consistent with likely cystic encephalomalacia r elated to prior insult such as infarct, hemorrhage or infection. No acute intracranial hemorrhage, ac romana infarction or abnormal extra axial fluid collection. Ventricles are normal and symmetric. No mass /mass effect. Changes of bilateral intraocular lens replacement. The orbits and mastoid air cells are normal. No complete opacification of the left sphenoid sinus. IMPRESSION: 1. No acute intracranial process. 2. Small region of right frontal cystic encephalomalacia likely related to chronic insult such as inf arct, hemorrhage or infection. No evident mass effect or associated soft tissue component to suggest neoplasm would correlate with clinical history and any prior outside imaging. If clinically indicated this could be further evaluated with pre and postcontrast MRI. Reviewed, dictated and finalized at location A. IMPRESSION: 1. No acute intracranial process. 2. Small region of right frontal cystic encephalomalacia likely related to rubber calender helper didier insult such as infarct, hemorrhage or infection. No evident mass effect or associated soft tissue component to suggest neoplasm would correlate with clini jacob history and any prior outside imaging. If clinically indicated this could b e further evaluated with pre and postcontrast MRI.
[2022-10-19 22:33] VITALS: BP 99/71; PULSE 114; RESP 22; TEMP 37; O2SAT 93
--- NOTE | 2022-10-19 23:01 | PC.NURSE ---
Called [facility] to get report on patient, spoke with Adenike. States she is unfamiliar with patient but read through notes from today. Pt was sent out because she vomited brown liquid and staff was concerned she is vomiting stool. Asked Adenike if pt has been complaining of hip pain because she denies any nausea or diarrhea at this time and her only complaint is hip pain. Adenike states that the doctor was at the [facility] today and did a lidocaine steroid injection today. Adenike denies any recent falls at the [facility].
[2022-10-19 23:17] VITALS: BP 115/72; PULSE 117; RESP 20; O2SAT 94
[2022-10-19 23:41] LABS: Glucose Point of Care 171 mg/dl (65-105)
[2022-10-20] VITALS (63 sets, daily range): BP systolic 56–124; BP diastolic 28–82; PULSE 110–132; RESP 16–36; TEMP 36.6–36.9; O2SAT 83–100
--- NOTE | 2022-10-20 00:04 | ECG_ITS ---
Measurements Intervals [place] Rate: 119 P: TN: 0 QRS: -17 QRSD: 96 T: 62 QT: 320 QTc: 450 Interpretive Statements ATRIAL FIBRILLATION WITH RAPID VENTRICULAR RESPONSE NONSPECIFIC ST & T-WAVE ABNORMALITY ABNORMAL RHYTHM ECG COMPARED TO ECG 10/11/2022 02:46:29 NO SIGNIFICANT CHANGES Electronically Signed On 10-20-2022 10:41:51 CDT by Megan Vincent M.D.
--- NOTE | 2022-10-20 00:07 | ED.GENADULT ---
HPI - General Adult General Chief complaint: Nausea/Vomiting/Diarrhea Stated complaint: N/V/D Time Seen by Provider: 10/19/22 23:00 History of Present Illness HPI narrative: Patient is a poor historian her only complaint at this time is right hip pain. The pain appears to be chronic. She denies falls. This is an 82-year-old female presenting to ED with a chief complaint of nausea and vomiting. Patient was discharged from our hospital After being treated for sepsis from UTI on October 14 to a [facility]. was discharged on Augmentin which she has been taking. Since then the patient has started to have nausea and vomiting and has not had a bowel movement in 3 days. The patient denies fever, chills, chest pain, difficulty breathing, abdominal pain urinary symptoms. Related Data Home Medications Medication Instructions Recorded Confirmed buspirone 15 mg tablet 15 mg PO BID 10/11/22 10/19/22 ketoconazole 2 % topical cream 1 applic topical Q12H 10/11/22 10/19/22 levothyroxine 100 mcg tablet 100 mcg PO DAILY 10/11/22 10/19/22 metformin 1,000 mg tablet 1,000 mg PO BID 10/11/22 10/19/22 rosuvastatin 10 mg tablet 10 mg PO DAILY 10/11/22 10/19/22 tramadol 50 mg tablet 50 mg PO Q8H PRN Pain 10/11/22 10/19/22 warfarin 5 mg tablet 5 mg PO DAILY 10/11/22 10/19/22 Allergies Allergy/AdvReac Type Severity Reaction Status Date / Time No Known Allergies Allergy Verified 10/19/22 23:31 REPLACED BY [facility] Past Medical History Medical History Anxiety Chronic anticoagulation Hyperlipidemia Hyperlipidemia Hypothyroidism Type 2 diabetes mellitus Surgical History Surgical History No history of major surgery within 1 month Family History Family History Other Family history non-contributory Social History Social History Social History: Surrogate medical decision maker: Khari Kramer, son. Code status: Full code. Smoking status: Never smoker Alcohol intake: never Substance use: never Lack of Transportation: No Lack of Food: Never True Current Housing: I Have Housing Concerned About Future Housing: No Difficulty Paying Gas/Electric Bills: No Difficulty Paying for Meds: No Currently Unemployed: No Education: High School Diploma/GED Difficulty w/ Childcare or Family Care: No Spiritual care concerns: No Exam Narrative: APPEARANCE: Patient appears chronically unwell Head: atraumatic. EYES: EOMI, NOSE: Atraumatic NECK: Trachea midline RESPIRATORY: No increased rate of breathing, clear to auscultation CARDIOVASCULAR: RRR, chronic lymphedema of the lower extremities ABDOMINAL: distended, nontender no guarding or rebound. Light bruising over the bottom of the abdomen and right flank MUSCULOSKELETAl: No obvious deformities NEURO: Alert. Moving 4/4 extremities SKIN:: pale, diaphoretic PSYCHIATRIC: Normal affect Course Vital Signs Vital signs: Vital Signs Temperature 98.6 F 10/19/22 22:33 Pulse Rate 114 H 10/19/22 22:33 Respiratory Rate 22 H 10/19/22 22:33 Blood Pressure 99/71 L 10/19/22 22:33 Pulse Oximetry 93 10/19/22 22:33 Oxygen Delivery Room Air 10/19/22 22:33 Temperature 97.9 F 10/20/22 07:41 Pulse Rate 116 H 10/20/22 07:41 Respiratory Rate 24 H 10/20/22 07:41 Blood Pressure 97/59 L 10/20/22 07:41 Pulse Oximetry 99 10/20/22 07:41 Oxygen Delivery Room Air 10/19/22 22:33 Procedures Central Line Placement Right IJ: Central Line Date: 10/20/22 Discussed w/ the patient/family/POA,the placement of a central venous catheter, including its clinical necessity/indication & associated potential risks, benifits and alternatives.: Yes The patient/family/POA understand(s) and acknowledge(s) the need to proceed with central venous
[2022-10-20 00:08] LABS: Hematocrit 22.3 % (37.0-47.0); Mean Corpuscular HGB Conc 31.4 g/dl (32-36); Mean Corpuscular Volume 108.3 fl (80-100); Mean Platelet Volume 10.7 fl (7.4-10.4); Platelet Count Result 362 k/mm3 (150-375); Red Blood Count 2.06 M/mm3 (4.2-5.4); Red Cell Distribution Width 15.7 % (11.5-14.5); White Blood Count 49.4 K/mm3 (4.5-10.0)
--- NOTE | 2022-10-20 00:08 | PC.NURSE ---
Pt vomited after receiving IV pain medication. Verbal order for IV zofran obtained from Dr. Uribe
[2022-10-20 00:17] LABS: INR 2.4; Prothrombin Time 25.2 Seconds (11.1-14.7)
[2022-10-20] MEDS: SODIUM CHLORIDE 0.9% IV 3,000 ML 999 ML IV CONT (00:17)
[2022-10-20] MEDS: ONDANSETRON INJ 4 MG/2 ML VIAL (00:17)
[2022-10-20 00:18] LABS: Partial Thromboplastin Time 61.9 SECONDS (22.3-36.8)
[2022-10-20 00:20] LABS: Alanine Aminotransferase 84 U/L (6-35); Albumin Level 3.2 g/dL (3.5-5.1); Alkaline Phosphatase 137 U/L (38-126); Anion Gap 13 mmol/L (8-16); Aspartate Amino Transferase 334 U/L (14-36); Bilirubin,Total 1.2 mg/dL (0.2-1.3); Blood Urea Nitrogen 35 mg/dL (7-17); Calcium 7.9 mg/dL (8.4-10.2); Carbon Dioxide 20 mmol/L (22-30); Chloride 97 mmol/L (98-107); Estimated CRCL calculation 20 ml/min; Estimated Glomerular Filt Rate 18; Glucose 182 mg/dL (65-110); Potassium 5.9 mmol/L (3.4-5.0); Sodium 130 mmol/L (137-145)
[2022-10-20 00:22] LABS: Band Neutrophils Percent 1 % (0-6); Large Platelets Present; Lymphocytes Absolute Manual 11.85 K/mm3 (1.1-4.5); Monocytes Absolute Manual 1.97 K/mm3 (0.1-0.90); Monocytes Percent Manual 4 % (3-9); Neutrophils Absolute Manual 35.56 K/mm3 (1.7-7.2); Neutrophils Percent Manual 71 % (46-73); Platelet Estimate Adequate (Adequate); Smudge Cells MODERATE; Total Cells Counted 100
[2022-10-20 00:23] LABS: Giant Platelets Present; Schistocytes None Seen (NORMAL); Stomatocytes 1+ (NORMAL)
[2022-10-20 00:27] LABS: NT Pro B Type Natriuretic Pept 739 pg/mL (19.9-100)
[2022-10-20 00:40] LABS: Lactic Acid Reflex 7.6 mmol/L (0.7-2.0)
--- NOTE | 2022-10-20 00:40 | PC.NURSE ---
Dr. Uribe notified that pt's creatinine is 2.5 and is too high to receive IV contrast for CT.
[2022-10-20 00:41] LABS: Appearance Urine Turbid (Clear); Bilirubin Urine 1+ (Negative); Blood Urine 3+ (Negative); Glucose Urine UA Negative (Negative); Ketones Urine Negative (Negative); Leukocyte Esterase Ur 3+ LEU/UL (Negative); Need Manual Microscopic Reviewed; Nitrate Urine Negative (Negative); Protein Urine 2+ mg/dL (Negative); RBC Urine >100 /hpf (0-2); Specific Grav Ur 1.024 (1.001-1.035); Squamous Epithelial Cell Urine Many /hpf (Few); WBC Urine >100 /hpf
[2022-10-20 00:41] LABS: Influenza A QL RT-PCR Negative (Negative); Influenza B QL RT-PCR Negative (Negative); RSV RNA, RT-PCR Negative (Negative); Reflex Lactic Acid Yes or No Add Lactic; SARS-CoV-2 RNA PCR Negative
[2022-10-20 00:42] LABS: Bacteria Urine 4+ /hpf; Color Urine Amber (Yellow)
[2022-10-20 00:43] LABS: Add Urine Microscopic? YES
[2022-10-20 01:02] LABS: Lipase 141 U/L (23-300); Magnesium 1.9 mg/dL (1.6-2.3)
[2022-10-20] MEDS: CEFEPIME 1 GM/NS 50 ML 1 GM/50 ML BAG IVPB (01:18)
[2022-10-20 01:19] LABS: Troponin I 0.045 ng/mL (0.000-0.034)
--- NOTE | 2022-10-20 01:19 | PC.NURSE ---
Consent obtained for blood transfusion and central line insertion. Forms signed by patient's son at pt's request.
[2022-10-20] MEDS: DEXTROSE 50% 25 GM/50 ML SYRINGE IV PUSH (01:35)
[2022-10-20] MEDS: INSULIN HUMAN REGULAR (*BKC) 100 UNITS/ML 10 UNITS IV PUSH (01:39)
[2022-10-20] MEDS: SODIUM BICARBONATE 8.4% 50 MEQ/50 ML SYRINGE IV PUSH (01:42)
[2022-10-20] MEDS: CALCIUM GLUC 1,000 MG/NS 100ML 1,000 MG/100 ML BAG 200 MG IVPB (01:46)
[2022-10-20 01:51] LABS: Lactic Acid 6.3 mmol/L (0.7-2.0)
[2022-10-20] MEDS: HUMAN PROTHROMBIN COMPLEX(PCC) 2,500 UNITS in PREMIXIV 0 ML 504 UNITS IV CONT (02:02)
[2022-10-20] MEDS: TUBING, BLOOD PLUM PUMP TUBING 1 EACH XX ×2 (02:29→05:34)
[2022-10-20] MEDS: SODIUM CHLORIDE 0.9% IV 250 ML 30 ML IV CONT (02:29)
[2022-10-20] MEDS: PHYTONADIONE ADULT INJ 10 MG in DEXTROSE 5% IN WATER 50 ML 100 MG IVPB (02:30)
--- NOTE | 2022-10-20 03:46 | PC.NURSE ---
Increased blood transfusion rate to 200ml/hr per v/o Dr. Uribe
[2022-10-20 03:59] LABS: Anion Gap 11 mmol/L (8-16); Blood Urea Nitrogen 36 mg/dL (7-17); Calcium 6.9 mg/dL (8.4-10.2); Carbon Dioxide 20 mmol/L (22-30); Chloride 100 mmol/L (98-107); Estimated CRCL calculation 21 ml/min; Estimated Glomerular Filt Rate 19; Glucose 165 mg/dL (65-110); Potassium 5.1 mmol/L (3.4-5.0); Sodium 131 mmol/L (137-145)
[2022-10-20 04:55] LABS: Lactic Acid Reflex 5.5 mmol/L (0.7-2.0)
[2022-10-20 05:52] LABS: Fractional Inspired Oxygen 21 %; HCO3 VBG 21.3 mEq/l (24.0-30.0); PCO2 VBG 40.2 mmHg (42.0-48.0); PO2 VBG 33.8 mmHg (35.0-45.0); pH VBG 7.343 (7.300-7.400)
[2022-10-20 05:53] LABS: Device ROOM AIR
[2022-10-20] MEDS: NOREPINEPHRINE 8 MG/D5W 250 ML 8 MG/250 ML BAG 9.38 MG IV CONT (06:29)
--- NOTE | 2022-10-20 06:33 | PC.NURSE ---
Pt's oxygen saturation dropped to 84% on room air while she sleeps. After waking pt up her saturation increased to 92%. 2L nasal cannula applied while pt sleeping. Dr. Uribe notified.
[2022-10-20] MEDS: HYDROmorphone HCL INJ (*CRX) 1 MG/ML SYR 0.5 MG IV PUSH ×2 (06:53)
== END 2022-10-20 08:30 | disposition short-term general hospital (02) ==
PROVIDERS: Emergency Provider Emergency Medicine; PCP Internal Medicine
DX: A41.9 Sepsis, unspecified organism (principal); N39.0 Urinary tract infection, site not specified; N17.9 Acute kidney failure, unspecified; K66.1 Hemoperitoneum; E87.5 Hyperkalemia; D64.9 Anemia, unspecified; D72.829 Elevated white blood cell count, unspecified; Z79.01 Long term (current) use of anticoagulants; Z20.822 Contact with and (suspected) exposure to COVID-19; E78.5 Hyperlipidemia, unspecified; E03.9 Hypothyroidism, unspecified; E11.9 Type 2 diabetes mellitus without complications; F41.9 Anxiety disorder, unspecified; Z79.84 Long term (current) use of oral hypoglycemic drugs; I48.91 Unspecified atrial fibrillation; R94.31 Abnormal electrocardiogram [ECG] [EKG]; G93.89 Other specified disorders of brain; M16.0 Bilateral primary osteoarthritis of hip; I51.7 Cardiomegaly
CPT/HCPCS: 36415; 36430; 36556; 70450; 71045; 72170; 74176; 80048; 80053; 81001; 82803; 82948; 83605; 83690; 83735; 83880; 84484; 85025; 85610; 85730; 86850; 86900; 86901; 86923; 87040; 87086; 87637; 93005; 96365; 96366; 96367; 96368; 96375; 99285; C1751; J0131; J0612; J0692; J1170; J1815; J2405; J3370; J3430; J7030; J7050; J7168; P9016

== ENCOUNTER 2022-11-09 17:39 | Inpatient (IN) | payer MEDICARE, SELFPAY ==
--- NOTE | ~2022-11-09 | XR_ITS ---
EXAMINATION: XR chest 2V Exam Date/Time: 11/09/2022 18:35 CDT HISTORY: BLE swelling, r/o chf Comparison: 10/20/2022. RESULT: Lines, tubes, and devices: None. Lungs and pleura: Peripheral reticular opacities. Right basilar atelectasis. Moderate right costophr enic angle blunting. Left basilar scar/atelectasis. Amorphous calcification projecting over the left upper lung. Cardiomediastinal silhouette: Cardiomegaly. Other: No acute osseous or upper abdominal finding. IMPRESSION: Cardiomegaly with mild interstitial edema. Moderate right pleural effusion, possibly subpleural, with right basilar atelectasis. Reviewed, dictated and finalized at location K. IMPRESSION: Cardiomegaly with mild interstitial edema. Moderate right pleural effusion, pos sibly subpleural, with right basilar atelectasis.
--- NOTE | ~2022-11-09 | XR_ITS ---
EXAMINATION: XR shoulder RT min 2V INDICATION: Right shoulder pain TECHNIQUE: Four views of the right shoulder are submitted. COMPARISON: None FINDINGS: Normal alignment. No fracture. 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 Soft tissues are unremarkable. IMPRESSION: 1. No acute osseous abnormality. Reviewed, dictated and finalized at location F.
--- NOTE | ~2022-11-09 | US_ITS ---
EXAMINATION: US venous doppler [facility] DATE: 11/10/2022 09:53 INDICATION: Bilateral lower limb swelling TECHNIQUE: Fuller scale images without and with compression and Doppler images of the bilateral lower e xtremity veins were obtained. COMPARISON: None FINDINGS: The bilateral peroneal veins and right posterior tibial veins are not evaluated due to lowe r limb edema. The right common femoral vein, profunda femoral vein, femoral vein, popliteal vein, and greater saph enous vein are patent. The left common femoral vein, profunda femoral vein, femoral vein, popliteal vein, posterior tibial veins, and greater saphenous vein are patent. IMPRESSION: 1. Patent bilateral lower extremity veins. No evidence of deep venous thrombosis, limited evaluation due to edema. Reviewed, dictated and finalized at location L. IMPRESSION: 1. Patent bilateral lower extremity veins. No evidence of deep venous thrombosi s, limited evaluation due to edema.
--- NOTE | ~2022-11-09 | XR_ITS ---
EXAMINATION: XR chest 2V DATE: 11/13/2022 09:49 INDICATION: Shortness of breath TECHNIQUE: AP and lateral views of the chest are obtained. COMPARISON: 11/09/2022 FINDINGS: Cardiomegaly is noted. The previous pulmonary edema has resolved. There is a stable small r ight pleural effusion with associated right basilar airspace opacity. There is no pneumothorax. IMPRESSION: 1. Cardiomegaly with resolved pulmonary edema. 2. Small right pleural effusion with associated basilar airspace opacities, atelectasis versus pneumo ana. Reviewed, dictated and finalized at location F. IMPRESSION: 1. Cardiomegaly with resolved pulmonary edema. 2. Small right pleural effusion with associated basilar airspace opacities, ate lectasis versus pneumonia.
[2022-11-09 17:41] VITALS: BP 111/63; PULSE 100; RESP 18; TEMP 36.8; O2SAT 100
[2022-11-09 18:19] LABS: Basophils Percent Auto 0.4 % (0.2-1.2); Eosinophils Absolute Auto 0.1 K/mm3 (0-0.3); Eosinophils Percent Auto 1.2 % (0-4.4); Hematocrit 33.3 % (37.0-47.0); Hemoglobin 10.5 g/dL (12.0-15.0); Immature Granulocyte Absolute 0.05 K/mm3 (0.00-0.031); Immature Granulocyte Percent A 0.6 % (0-0.5); Lymphocytes Absolute Auto 2.47 K/mm3 (0.9-3.2); Lymphocytes Percent Auto 30.2 % (18.3-44.2); Mean Corpuscular HGB Conc 31.5 g/dl (32-36); Mean Corpuscular Hemoglobin 32.9 pg (26-34); Mean Corpuscular Volume 104.4 fl (80-100); Monocytes Absolute Auto 0.7 K/mm3 (0.1-0.6); Monocytes Percent Auto 8.1 % (2.6-8.5); Neutrophils Absolute Auto 4.9 K/mm3 (1.3-6.7); Neutrophils Percent Auto 59.5 % (45.5-73.1); Platelet Count Result 187 k/mm3 (150-375); Red Blood Count 3.19 M/mm3 (4.2-5.4); Red Cell Distribution Width 18.7 % (11.5-14.5); White Blood Count 8.2 K/mm3 (4.5-10.0)
[2022-11-09 18:30] VITALS: BP 105/67; PULSE 92; RESP 16; O2SAT 96
[2022-11-09 18:30] LABS: Lactic Acid Reflex 1.3 mmol/L (0.7-2.0)
[2022-11-09 18:30] LABS: Alanine Aminotransferase 14 U/L (6-35); Albumin Level 3.8 g/dL (3.5-5.1); Alkaline Phosphatase 124 U/L (38-126); Aspartate Amino Transferase 43 U/L (14-36); Bilirubin,Total 1.2 mg/dL (0.2-1.3); Blood Urea Nitrogen 14 mg/dL (7-17); Calcium 8.2 mg/dL (8.4-10.2); Carbon Dioxide > 40 mmol/L (22-30); Chloride 97 mmol/L (98-107); Estimated CRCL calculation 43 ml/min; Estimated Glomerular Filt Rate 48; Glucose 84 mg/dL (65-110); Potassium 3.5 mmol/L (3.4-5.0); Sodium 136 mmol/L (137-145)
--- NOTE | 2022-11-09 18:30 | ECG_ITS ---
Measurements Intervals [place] Rate: 92 P: MO: 0 QRS: -23 QRSD: 101 T: 120 QT: 275 QTc: 341 Interpretive Statements ATRIAL FIBRILLATION LOW QRS VOLTAGE IN PRECORDIAL LEADS [QRS DEFLECTION < 1.0 mV IN CHEST LEADS] POSSIBLE ANTERIOR MYOCARDIAL INFARCTION , PROBABLY OLD [30 ms Q WAVE IN V3/V4, OR R < 0.2 mV IN V4] ABNORMAL RHYTHM ECG COMPARED TO ECG 10/20/2022 00:04:02 NO SIGNIFICANT CHANGES Electronically Signed On 11-10-2022 8:58:03 CDT by Shravan Gonzalez M.D.
[2022-11-09 18:31] LABS: INR 1.2; Prothrombin Time 14.5 Seconds (11.1-14.7)
[2022-11-09 18:32] LABS: Partial Thromboplastin Time 26.4 SECONDS (22.3-36.8)
--- NOTE | 2022-11-09 18:33 | ED.GENADULT ---
HPI - General Adult General Chief complaint: Extremity Problem,Nontraumatic <Octavia Pacheco PA-C - Last Filed: 11/10/22 03:38> Stated complaint: lower extremity swelling <FAIZA Mcbride Last Filed: 11/10/22 03:38> Time Seen by Provider: 11/09/22 17:59 <FAIZA Mcbride Last Filed: 11/10/22 03:38> Source: patient and old records reviewed <Octavia Pacheco PA-C - Last Filed: 11/10/22 03:38> Mode of arrival: EMS <FAIZA Mcbride Last Filed: 11/10/22 03:38> Limitations: dementia <FAIZA Mcbride Last Filed: 11/10/22 03:38> History of Present Illness HPI narrative: Patient is an 82 y/o female who presents to the ED via EMS with report of lower extremity swelling and weeping. Patient is a poor historian. Information mostly obtained through old records. Patient was recently admitted here at the end of September for DKA, A-fib with RVR, urosepsis. She was discharged to [facility] for rehabilitation. Patient was again seen here in October and found to have urosepsis, acute renal failure, bilateral spontaneous retroperitoneal hemorrhages. She was transferred to [facility] at that time for intensive care. Unable to view records from stay there. Patient had been on warfarin due to a history of atrial fibrillation. She is unsure if she is still taking this. She presents today reporting significant lower extremity swelling and weeping. She states the swelling has been present for the last couple of days. She does not take any diuretics currently. She does report some pain to bilateral feet. She denies any chest pain or difficulty breathing. Denies Hx of CHF. Denies fevers. Denies injury. <FAIZA Mcbride Last Filed: 11/10/22 03:38> Related Data Home medications: Home Medications Medication Instructions Recorded Confirmed buspirone 15 mg tablet 15 mg PO BID 10/11/22 11/09/22 ketoconazole 2 % topical cream 1 applic topical Q12H 10/11/22 11/09/22 levothyroxine 100 mcg tablet 100 mcg PO DAILY 10/11/22 11/09/22 metformin 1,000 mg tablet 1,000 mg PO BID 10/11/22 11/09/22 rosuvastatin 10 mg tablet 10 mg PO DAILY 10/11/22 11/09/22 <Octavia Pacheco PA-C - Last Filed: 11/10/22 03:38> Allergies/adverse reactions: Allergies Allergy/AdvReac Type Severity Reaction Status Date / Time No Known Allergies Allergy Verified 10/19/22 23:31 <Octavia Pacheco PA-C - Last Filed: 11/10/22 03:38> Review of Systems Review of Systems: CONSTITUTIONAL: Denies fever, chills, or sweats. CARDIOVASCULAR: See HPI. RESPIRATORY: Denies cough or dyspnea. GASTROINTESTINAL: Denies abdominal pain, nausea, vomiting. GENITOURINARY: Denies dysuria or hematuria. SKIN: See HPI. MUSCULOSKELETAL: See HPI. NEUROLOGIC: Denies headache, numbness, or weakness. <Octavia Pacheco PA-C - Last Filed: 11/10/22 03:38> All systems reviewed & are unremarkable except as noted in HPI and below <Octavia Pacheco PA-C - Last Filed: 11/10/22 03:38> PMFSH Past Medical History Medical History: Medical History Anxiety Chronic anticoagulation Hyperlipidemia Hyperlipidemia Hypothyroidism Type 2 diabetes mellitus <Octavia Pacheco PA-C - Last Filed: 11/10/22 03:38> Surgical History Surgical History: Surgical History No history of major surgery within 1 month <Octavia Pacheco PA-C - Last Filed: 11/10/22 03:38> Family History Family History: Family History Other Family history non-contributory <Octavia Pacheco PA-C - Last Filed: 11/10/22 03:38> Social History Social History: Social History Social History: Surrogate medical
[2022-11-09 18:38] LABS: NT Pro B Type Natriuretic Pept 913 pg/mL (19.9-100)
[2022-11-09 18:55] LABS: Magnesium 1.5 mg/dL (1.6-2.3)
[2022-11-09] MEDS: MAGNESIUM SULF 2 GM/WATER 50ML 2 GM/50 ML BAG IVPB (19:39)
[2022-11-09] MEDS: FUROSEMIDE INJ 40 MG/4 ML VIAL IV PUSH (19:40)
[2022-11-09 20:53] VITALS: BP 116/70; PULSE 95; RESP 16; O2SAT 99
--- NOTE | 2022-11-09 21:15 | PM.IMHP ---
H&P: HPI History of Present Illness Date/Time: 11/09/22 21:15 Chief Complaint: Leg swelling Narrative: 82-year-old female with past medical history significant for insulin-dependent diabetes mellitus, diabetic peripheral neuropathy, venous insufficiency, hypothyroidism, dyslipidemia, atrial fibrillation. Patient presents to the emergency room due to worsening bilateral lower extremity edema for the last several days however patient cannot really give much history or meaningful history denies any fevers, rigors, chills, shortness of breath, cough, sputum production patient states that she recently moved in with her to their son's house and that she has been busy. Preliminary workup was significant for brain natriuretic peptide 913. Patient is been admitted for further evaluation management and treatment. EXAMINATION:? XR chest 2V Exam Date/Time:? 11/09/2022 18:35 CDT HISTORY: BLE swelling, r/o chf ? Comparison:? 10/20/2022. RESULT: Lines, tubes, and devices:? None. Lungs and pleura:? Peripheral reticular opacities. Right basilar atelectasis. Moderate right costophrenic angle blunting. Left basilar scar/atelectasis. Amorphous calcification projecting over the left upper lung. Cardiomediastinal silhouette:? Cardiomegaly. Other:? No acute osseous or upper abdominal finding. ? IMPRESSION: Cardiomegaly with mild interstitial edema. Moderate right pleural effusion, possibly subpleural, with right basilar atelectasis. Review of Systems Review of Systems: Bilateral lower extremity edema Constitutional: Constitutional: Denies chills, Denies fatigue, Denies fever(s), Denies lethargy, Denies malaise, Denies night sweats, Denies poor appetite and Denies weakness Eyes: Eyes: Denies change in vision ENT: Denies dysphagia and Denies odynophagia Cardiovascular: Cardiovascular: Denies chest pain, Reports leg edema, Denies lightheadedness, Denies palpitations and Denies dyspnea on exertion Respiratory: Respiratory: Denies chest congestion, Denies cough, Denies excessive phlegm production, Denies pain on inspiration, Denies dyspnea and Denies dyspnea on exertion Gastrointestinal: Gastrointestinal: Denies abdominal pain, Denies dyspepsia, Denies heartburn, Denies diarrhea, Denies nausea and Denies vomiting Genitourinary: Genitourinary: Denies dysuria Musculoskeletal: Musculoskeletal: Reports no additional musculoskeletal complaints, Reports as per HPI, Reports abnormal gait, Denies myalgias and Denies muscle weakness Integumentary/Breasts: Skin/Breast: Reports erythema and Denies skin ulcer Neurologic: Denies focal weakness and Denies Sensory deficit (Neuro) Psychiatric: Psychiatric: Reports no additional psychiatric complaints and Reports as per HPI Endocrine: Endocrine: Denies cold intolerance, Denies fatigue, Denies flushing, Denies heat intolerance, Denies polyphagia, Denies polydipsia and Denies palpitations Hematologic/Lymphatic: Hematologic/Lymphatic: Reports no additional hematologic/lymphatic complaints and Reports as per HPI Allergic/Immunologic: Allergic/Immunologic: Reports no additional allergic/immunologic complaints and Reports as per HPI [facility] Past Medical History Medical History Anxiety Chronic anticoagulation Hyperlipidemia Hyperlipidemia Hypothyroidism Type 2 diabetes mellitus Surgical History Surgical History No history of major surgery within 1 month Family History Family History Other Family history non-contributory Social History Social History Social History: Surrogate medical decision maker: Khari Kramer, son. Code status: Full code. Smoking status: Never smoker Second hand tobacco smoke exposure: No Alcohol intake: never Substance
[2022-11-09 21:28] LABS: Appearance Urine Clear (Clear); Bacteria Urine None Seen /hpf; Bilirubin Urine Negative (Negative); Blood Urine Negative (Negative); Color Urine Yellow (Yellow); Glucose Urine UA Negative (Negative); Ketones Urine Negative (Negative); Leukocyte Esterase Ur Trace LEU/UL (Negative); Nitrate Urine Negative (Negative); Non Pathogenic Casts 0-2; Protein Urine Negative (Negative); RBC Urine 0-2 /hpf (0-2); Squamous Epithelial Cell Urine Occasional /hpf (Few); Urobilinogen Urine 0.2 mg/dL (<2.0); WBC Urine 0-5 /hpf
[2022-11-09 21:36] LABS: Add Urine Microscopic? YES
[2022-11-09 21:44] LABS: Glucose Point of Care 99 mg/dl (65-105)
[2022-11-09 22:46] VITALS: BP 127/54; PULSE 94; RESP 19; O2SAT 99
--- NOTE | 2022-11-09 22:47 | PC.NURSE ---
Pt ate half of a turkey sandwhich and half a bag of chips.
[2022-11-09 23:50] LABS: Glucose Point of Care 126 mg/dl (65-105)
--- NOTE | 2022-11-09 23:59 | ADMGEN ---
This patient, Damaris Kramer, was admitted to [facility] Surg Room 321-02. Patient/family oriented to hospital policies and general routines including ID bracelet, bed and alarms, visiting hours, pain management, procedures, bathroom and other care routines, personal items, smoking policy, room service/diet, and visiting hours. Information on how to activate the Rapid Response Team has been discussed. Patient/Family are encouraged to report perceived risks to care and to ask questions if they do not understand what they are told or what they should do.
[2022-11-10] VITALS (8 sets, daily range): BP systolic 101–133; BP diastolic 44–75; PULSE 92–103; RESP 16–20; TEMP 36.3–36.7; O2SAT 98–99
[2022-11-10] MEDS: LEVOTHYROXINE SODIUM 100 MCG TABLET PO (05:45)
[2022-11-10] MEDS: HYDROcodone/acetaminophen (*CRX) 10-325 MG TABLET 1 TAB PO ×3 (05:54→20:45)
[2022-11-10 07:51] LABS: Glucose Point of Care 132 mg/dl (65-105)
[2022-11-10] MEDS: INSULIN ASPART (*BKC) 100 UNITS/ML 15 UNITS SUB-Q ×2 (10:46→12:55)
[2022-11-10] MEDS: ROSUVASTATIN 10 MG TABLET PO (10:46)
[2022-11-10] MEDS: FUROSEMIDE INJ 40 MG/4 ML VIAL IV PUSH ×2 (10:47→20:44)
[2022-11-10] MEDS: busPIRone HCL 5 MG TABLET 15 MG PO ×2 (10:47→17:33)
[2022-11-10] MEDS: AMIODARONE HCL 200 MG TABLET 400 MG PO ×2 (10:47→17:33)
[2022-11-10] MEDS: TOLNAFTATE 1% POWDER 45 GM BTL 1 APPLIC TOPICAL ×2 (10:48→20:44)
[2022-11-10] MEDS: SILVERGEL (ELTA) 45 ML 1 APPLIC TOPICAL (10:48)
[2022-11-10] MEDS: MICONAZOLE NITRATE 2% CREAM 30 GM TUBE 1 APPLIC TOPICAL ×2 (10:48→20:44)
[2022-11-10 10:54] LABS: Basophils Percent Auto 0.4 % (0.2-1.2); Eosinophils Absolute Auto 0.1 K/mm3 (0-0.3); Eosinophils Percent Auto 1.3 % (0-4.4); Hemoglobin 10.1 g/dL (12.0-15.0); Immature Granulocyte Absolute 0.04 K/mm3 (0.00-0.031); Immature Granulocyte Percent A 0.6 % (0-0.5); Lymphocytes Absolute Auto 1.91 K/mm3 (0.9-3.2); Lymphocytes Percent Auto 28.2 % (18.3-44.2); Mean Corpuscular HGB Conc 31.6 g/dl (32-36); Mean Corpuscular Hemoglobin 33.2 pg (26-34); Mean Corpuscular Volume 105.3 fl (80-100); Mean Platelet Volume 9.1 fl (7.4-10.4); Monocytes Absolute Auto 0.5 K/mm3 (0.1-0.6); Neutrophils Absolute Auto 4.2 K/mm3 (1.3-6.7); Neutrophils Percent Auto 61.5 % (45.5-73.1); Platelet Count Result 169 k/mm3 (150-375); Red Blood Count 3.04 M/mm3 (4.2-5.4); Red Cell Distribution Width 18.7 % (11.5-14.5); White Blood Count 6.8 K/mm3 (4.5-10.0)
[2022-11-10 11:03] LABS: Alanine Aminotransferase 14 U/L (6-35); Albumin Level 3.5 g/dL (3.5-5.1); Alkaline Phosphatase 119 U/L (38-126); Aspartate Amino Transferase 36 U/L (14-36); Bilirubin,Total 1.1 mg/dL (0.2-1.3); Blood Urea Nitrogen 13 mg/dL (7-17); Calcium 8.1 mg/dL (8.4-10.2); Carbon Dioxide > 40 mmol/L (22-30); Chloride 95 mmol/L (98-107); Estimated CRCL calculation 48 ml/min; Estimated Glomerular Filt Rate 53; Glucose 189 mg/dL (65-110); Magnesium 1.7 mg/dL (1.6-2.3); Potassium 3.4 mmol/L (3.4-5.0); Sodium 137 mmol/L (137-145)
[2022-11-10 11:31] LABS: Glucose Point of Care 192 mg/dl (65-105)
[2022-11-10 12:00] LABS: Anisocytosis 1+ (NORMAL); Hypochromasia 1+ (NORMAL); Platelet Estimate Adequate (Adequate); Schistocytes None Seen (NORMAL)
--- NOTE | 2022-11-10 15:00 | PM.IMPN ---
Progress Note: A&P Assessment and Plan (1) CHF (congestive heart failure): Qualifiers: Heart failure chronicity: acute on chronic Heart failure type: unspecified Qualified Code(s): I50.9 - Heart failure, unspecified Code(s): I50.9 - Heart failure, unspecified Status: Acute (2) Lower extremity edema: Code(s): R60.0 - Localized edema Status: Acute (3) Venous stasis dermatitis of both lower extremities: Code(s): I87.2 - Venous insufficiency (chronic) (peripheral) Status: Acute Plan 82-year-old female with past medical history significant for insulin-dependent diabetes mellitus, diabetic peripheral neuropathy, venous insufficiency, hypothyroidism, dyslipidemia, atrial fibrillation presented with B/L worsening leg swelling. DVT study is unremarkable. 1)Acute on Chronic Leg Swelling : 2/2 chronic lymphedema c/w IV lasix Leg elevation Local skin care No need for abx 2)H/o Afibb: c/w amiodarone 3)Diabetes Mellitus: BG check TID AC and HS c/w lantus+meal time insulin Adjust dose as needed 4)H/o Hypothyroidism: c/w levothyroxine 5)Nash:Full 6)Dispo:pending improvement Time Spent With Patient Time with patient: 15 - 25 minutes Subjective Date/time seen: 11/10/22 15:00 Interval history: B/L leg swelling Review of Systems Review of Systems: Bilateral lower extremity edema Constitutional: Constitutional: Denies chills, Denies fatigue, Denies fever(s), Denies lethargy, Denies malaise, Denies night sweats, Denies poor appetite and Denies weakness Eyes: Eyes: Denies change in vision ENT: Denies dysphagia and Denies odynophagia Cardiovascular: Cardiovascular: Denies chest pain, Reports leg edema, Denies lightheadedness, Denies palpitations and Denies dyspnea on exertion Respiratory: Respiratory: Denies chest congestion, Denies cough, Denies excessive phlegm production, Denies pain on inspiration, Denies dyspnea and Denies dyspnea on exertion Gastrointestinal: Gastrointestinal: Denies abdominal pain, Denies dyspepsia, Denies heartburn, Denies diarrhea, Denies nausea and Denies vomiting Genitourinary: Genitourinary: Denies dysuria Musculoskeletal: Musculoskeletal: Reports no additional musculoskeletal complaints, Reports as per HPI, Reports abnormal gait, Denies myalgias and Denies muscle weakness Integumentary/Breasts: Skin/Breast: Reports erythema and Denies skin ulcer Neurologic: Denies focal weakness and Denies Sensory deficit (Neuro) Psychiatric: Psychiatric: Reports no additional psychiatric complaints and Reports as per HPI Endocrine: Endocrine: Denies cold intolerance, Denies fatigue, Denies flushing, Denies heat intolerance, Denies polyphagia, Denies polydipsia and Denies palpitations Hematologic/Lymphatic: Hematologic/Lymphatic: Reports no additional hematologic/lymphatic complaints and Reports as per HPI Allergic/Immunologic: Allergic/Immunologic: Reports no additional allergic/immunologic complaints and Reports as per HPI Exam Const: General: comfortable and no acute distress HENMT: Mouth: Yes moist mucous membranes Eyes: Sclera: sclerae normal Neck: Neck: supple Resp: Effort & Inspection: normal respiratory effort Auscultation: clear to auscultation bilaterally Cardio: Rate: regular rate Rhythm: regular rhythm GI: GI Palp: Yes Soft to palpation Auscultation: normal bowel sounds Skin: Rashes: rashes noted Neuro: Speech: normal speech Extrem: Other: B/L 4+ pitting edema, weeping skin, redness B/L Psych: Mental Status: mental status grossly normal Objective Data Vital Signs Vital Signs: Vital Signs - 24 hr 11/09/22 17:41 11/09/22 18:30 11/09/22 20:53 Temperature 98.2 F Pulse Rate 100 92 95 Respiratory Rate 18 16 16 Blood Pressure 111/63 105/67 116/70 Pulse Oximetry 100 96 99 Oxygen Delivery 11/09/22 22:46 11/10/22 04:00 11/10/22 02:00 Temperature Pulse Rate 94 101 H Respiratory
--- NOTE | 2022-11-10 16:08 | PC.NURSE ---
Pt C/O not feeling right . Blood sugar checked at 52. Treatment provided. Provider notified. Pt reports feeling better . Blood sugar to be rechecked.
[2022-11-10 16:25] LABS: Glucose Point of Care 52 mg/dl (65-105)
[2022-11-10 16:25] LABS: Glucose Point of Care 64 mg/dl (65-105)
[2022-11-10] MEDS: GLUCOSE ORAL GEL 15 GM OF GLUCSE IN 37.5 GM TUBE PO (16:26)
[2022-11-10 17:35] LABS: Glucose Point of Care 77 mg/dl (65-105)
[2022-11-10] MEDS: HEPARIN SODIUM 5,000 UNITS/ML VIAL 5000 UNITS SUB-Q (20:44)
[2022-11-10] MEDS: INSULIN GLARGINE (*BKC) 100 UNITS/ML 35 UNITS SUB-Q (20:56)
[2022-11-10 21:00] LABS: Glucose Point of Care 158 mg/dl (65-105)
[2022-11-10 21:01] LABS: Glucose Point of Care 167 mg/dl (65-105)
[2022-11-11] VITALS (9 sets, daily range): BP systolic 90–118; BP diastolic 51–68; PULSE 73–96; RESP 16–18; TEMP 36–36.6; O2SAT 97–98
[2022-11-11] MEDS: HEPARIN SODIUM 5,000 UNITS/ML VIAL 5000 UNITS SUB-Q ×3 (04:58→20:57)
[2022-11-11] MEDS: HYDROcodone/acetaminophen (*CRX) 10-325 MG TABLET 1 TAB PO ×4 (04:58→20:57)
[2022-11-11] MEDS: LEVOTHYROXINE SODIUM 100 MCG TABLET PO (04:58)
[2022-11-11 06:01] LABS: Basophils Percent Auto 0.4 % (0.2-1.2); Eosinophils Absolute Auto 0.2 K/mm3 (0-0.3); Eosinophils Percent Auto 2.9 % (0-4.4); Hematocrit 29.8 % (37.0-47.0); Hemoglobin 9.2 g/dL (12.0-15.0); Immature Granulocyte Absolute 0.02 K/mm3 (0.00-0.031); Immature Granulocyte Percent A 0.4 % (0-0.5); Lymphocytes Absolute Auto 1.71 K/mm3 (0.9-3.2); Lymphocytes Percent Auto 31.4 % (18.3-44.2); Mean Corpuscular HGB Conc 30.9 g/dl (32-36); Mean Corpuscular Hemoglobin 32.3 pg (26-34); Mean Corpuscular Volume 104.6 fl (80-100); Mean Platelet Volume 9.4 fl (7.4-10.4); Monocytes Absolute Auto 0.6 K/mm3 (0.1-0.6); Monocytes Percent Auto 10.3 % (2.6-8.5); Neutrophils Percent Auto 54.6 % (45.5-73.1); Platelet Count Result 163 k/mm3 (150-375); Red Blood Count 2.85 M/mm3 (4.2-5.4); Red Cell Distribution Width 18.6 % (11.5-14.5); White Blood Count 5.5 K/mm3 (4.5-10.0)
[2022-11-11 06:34] LABS: Blood Urea Nitrogen 16 mg/dL (7-17); Calcium 7.7 mg/dL (8.4-10.2); Carbon Dioxide > 40 mmol/L (22-30); Chloride 95 mmol/L (98-107); Estimated CRCL calculation 53 ml/min; Estimated Glomerular Filt Rate 60; Glucose 104 mg/dL (65-110); Potassium 3.1 mmol/L (3.4-5.0); Sodium 136 mmol/L (137-145)
[2022-11-11 07:44] LABS: Glucose Point of Care 109 mg/dl (65-105)
[2022-11-11] MEDS: MICONAZOLE NITRATE 2% CREAM 30 GM TUBE 1 APPLIC TOPICAL (09:04)
[2022-11-11] MEDS: SILVERGEL (ELTA) 45 ML 1 APPLIC TOPICAL (09:06)
[2022-11-11] MEDS: TOLNAFTATE 1% POWDER 45 GM BTL 1 APPLIC TOPICAL (09:06)
[2022-11-11] MEDS: FUROSEMIDE INJ 40 MG/4 ML VIAL IV PUSH ×2 (09:06→20:57)
[2022-11-11] MEDS: busPIRone HCL 5 MG TABLET 15 MG PO ×2 (09:07→17:25)
[2022-11-11] MEDS: AMIODARONE HCL 200 MG TABLET 400 MG PO ×2 (09:07→17:25)
[2022-11-11] MEDS: ROSUVASTATIN 10 MG TABLET PO (09:07)
--- NOTE | 2022-11-11 11:35 | PM.IMPN ---
Progress Note: A&P Assessment and Plan (1) CHF (congestive heart failure): Qualifiers: Heart failure chronicity: acute on chronic Heart failure type: unspecified Qualified Code(s): I50.9 - Heart failure, unspecified Code(s): I50.9 - Heart failure, unspecified Status: Acute (2) Lower extremity edema: Code(s): R60.0 - Localized edema Status: Acute (3) Venous stasis dermatitis of both lower extremities: Code(s): I87.2 - Venous insufficiency (chronic) (peripheral) Status: Acute Plan 82-year-old female with past medical history significant for insulin-dependent diabetes mellitus, diabetic peripheral neuropathy, venous insufficiency, hypothyroidism, dyslipidemia, atrial fibrillation presented with B/L worsening leg swelling. DVT study is unremarkable. 1)Acute on Chronic Leg Swelling : 2/2 chronic lymphedema c/w IV lasix Leg elevation Local skin care No need for abx 2)H/o Afibb: c/w amiodarone 3)Diabetes Mellitus: BG check TID AC and HS c/w lantus+meal time insulin Adjust dose as needed 4)H/o Hypothyroidism: c/w levothyroxine 5)Nash:Full 6)Dispo:pending improvement 11/11/2022 Patient edema in the lower extremities slightly better. Patient potassium slightly. Plan is to continue with diuresis monitor his potassium. Increase activity as tolerated. Subjective Date/time seen: 11/11/22 11:35 Patient was seen during the rounds today. Swelling the lower extremities slightly better. Mild shortness of breath. No chest pain. No abdominal pain, nausea, no vomiting. Mood stable. Review of Systems Review of Systems: Bilateral lower extremity edema Constitutional: Constitutional: Denies chills, Denies fatigue, Denies fever(s), Denies lethargy, Denies malaise, Denies night sweats, Denies poor appetite and Denies weakness Eyes: Eyes: Denies change in vision ENT: Denies dysphagia and Denies odynophagia Cardiovascular: Cardiovascular: Denies chest pain, Reports leg edema, Denies lightheadedness, Denies palpitations, Denies dyspnea and Denies dyspnea on exertion Respiratory: Respiratory: Denies chest congestion, Denies cough, Denies excessive phlegm production, Denies pain on inspiration, Denies dyspnea and Denies dyspnea on exertion Gastrointestinal: Gastrointestinal: Denies abdominal pain, Denies dysphagia, Denies dyspepsia, Denies heartburn, Denies diarrhea, Denies nausea, Denies odynophagia and Denies vomiting Genitourinary: Genitourinary: Denies dysuria Musculoskeletal: Musculoskeletal: Reports no additional musculoskeletal complaints, Reports as per HPI, Reports abnormal gait, Denies myalgias and Denies muscle weakness Integumentary/Breasts: Skin/Breast: Reports erythema and Denies skin ulcer Neurologic: Reports abnormal gait, Denies focal weakness, Denies Sensory deficit (Neuro) and Denies weakness Psychiatric: Psychiatric: Reports no additional psychiatric complaints and Reports as per HPI Endocrine: Endocrine: Denies cold intolerance, Denies fatigue, Denies flushing, Denies heat intolerance, Denies polyphagia, Denies polydipsia and Denies palpitations Hematologic/Lymphatic: Hematologic/Lymphatic: Reports no additional hematologic/lymphatic complaints and Reports as per HPI Allergic/Immunologic: Allergic/Immunologic: Reports no additional allergic/immunologic complaints and Reports as per HPI Exam Narrative: Patient is sitting in recliner Const: General: cooperative, comfortable, no acute distress, well developed, alert, awake, average body habitus and other (Looks stated age) Nutritional Appearance: average body habitus Orientation/consciousness: patient oriented x3 HENMT: Head: normal to inspection, normocephalic and atraumatic Ears: hearing grossly normal bilaterally Face/Nose/Sinus: normal facial exam Face and sinus: normal facial exam Mouth: Yes moist mucous membranes Eyes: General: appearance normal, both eyes and all related struc
[2022-11-11 11:42] LABS: Glucose Point of Care 156 mg/dl (65-105)
[2022-11-11] MEDS: INSULIN ASPART (*BKC) 100 UNITS/ML 10 UNITS SUB-Q (12:30)
[2022-11-11 16:58] LABS: Glucose Point of Care 117 mg/dl (65-105)
[2022-11-11] MEDS: POTASSIUM CHLORIDE 20 MEQ TABLET.ER 40 MEQ PO (17:25)
[2022-11-11 20:43] LABS: Glucose Point of Care 165 mg/dl (65-105)
[2022-11-11] MEDS: INSULIN GLARGINE (*BKC) 100 UNITS/ML 35 UNITS SUB-Q (21:04)
[2022-11-12] VITALS (8 sets, daily range): BP systolic 101–116; BP diastolic 62–72; PULSE 76–105; RESP 16–18; TEMP 36.3–36.5; O2SAT 98–100
[2022-11-12] MEDS: HYDROcodone/acetaminophen (*CRX) 10-325 MG TABLET 1 TAB PO ×2 (03:57→14:06)
[2022-11-12] MEDS: LEVOTHYROXINE SODIUM 100 MCG TABLET PO (06:09)
[2022-11-12] MEDS: HEPARIN SODIUM 5,000 UNITS/ML VIAL 5000 UNITS SUB-Q ×3 (06:09→21:08)
[2022-11-12 07:57] LABS: Hematocrit 33.9 % (37.0-47.0); Hemoglobin 10.2 g/dL (12.0-15.0); Mean Corpuscular HGB Conc 30.1 g/dl (32-36); Mean Corpuscular Volume 106.3 fl (80-100); Mean Platelet Volume 9.6 fl (7.4-10.4); Platelet Count Result 196 k/mm3 (150-375); Red Blood Count 3.19 M/mm3 (4.2-5.4); Red Cell Distribution Width 18.5 % (11.5-14.5); White Blood Count 5.6 K/mm3 (4.5-10.0)
[2022-11-12 08:09] LABS: Alanine Aminotransferase 13 U/L (6-35); Albumin Level 3.5 g/dL (3.5-5.1); Alkaline Phosphatase 129 U/L (38-126); Anion Gap 1 mmol/L (8-16); Aspartate Amino Transferase 36 U/L (14-36); Bilirubin,Total 1.1 mg/dL (0.2-1.3); Blood Urea Nitrogen 16 mg/dL (7-17); Calcium 8.3 mg/dL (8.4-10.2); Carbon Dioxide 39 mmol/L (22-30); Chloride 95 mmol/L (98-107); Estimated CRCL calculation 48 ml/min; Estimated Glomerular Filt Rate 53; Glucose 130 mg/dL (65-110); Potassium 3.5 mmol/L (3.4-5.0); Sodium 135 mmol/L (137-145)
[2022-11-12 08:12] LABS: Glucose Point of Care 132 mg/dl (65-105)
[2022-11-12] MEDS: AMIODARONE HCL 200 MG TABLET 400 MG PO ×2 (08:39→16:59)
[2022-11-12] MEDS: FUROSEMIDE INJ 40 MG/4 ML VIAL IV PUSH ×2 (08:39→21:08)
[2022-11-12] MEDS: POTASSIUM CHLORIDE 20 MEQ TABLET.ER 40 MEQ PO ×2 (08:39→16:59)
[2022-11-12] MEDS: ROSUVASTATIN 10 MG TABLET PO (08:39)
[2022-11-12] MEDS: SILVERGEL (ELTA) 45 ML 1 APPLIC TOPICAL (08:40)
[2022-11-12] MEDS: TOLNAFTATE 1% POWDER 45 GM BTL 1 APPLIC TOPICAL ×2 (08:40→21:08)
[2022-11-12] MEDS: busPIRone HCL 5 MG TABLET 15 MG PO ×2 (08:40→17:00)
[2022-11-12] MEDS: MICONAZOLE NITRATE 2% CREAM 30 GM TUBE 1 APPLIC TOPICAL ×2 (08:40→21:08)
[2022-11-12 12:00] LABS: Glucose Point of Care 158 mg/dl (65-105)
[2022-11-12] MEDS: INSULIN ASPART (*BKC) 100 UNITS/ML 10 UNITS SUB-Q (12:14)
[2022-11-12] MEDS: MAGNESIUM OXIDE 400 MG TABLET PO (12:15)
--- NOTE | 2022-11-12 15:30 | PCPTNOTE ---
Patient with occupational therapy doing that evaluation, will try to see tomorrow AM.
--- NOTE | 2022-11-12 16:21 | PM.IMPN ---
Progress Note: A&P Assessment and Plan (1) CHF (congestive heart failure): Qualifiers: Heart failure chronicity: acute on chronic Heart failure type: unspecified Qualified Code(s): I50.9 - Heart failure, unspecified Code(s): I50.9 - Heart failure, unspecified Status: Acute Assessment and Plan: Acute on chronic diastolic congestive heart failure 11/12 continued gentle diuresis noting developing metabolic alkalosis (2) Lower extremity edema: Code(s): R60.0 - Localized edema Status: Acute Assessment and Plan: chronic venous stasis acute on chronic diastolic heart failure morbid obesity (3) Venous stasis dermatitis of both lower extremities: Code(s): I87.2 - Venous insufficiency (chronic) (peripheral) Status: Acute Assessment and Plan: continue leg elevation and compression (4) Lymphedema: Code(s): I89.0 - Lymphedema, not elsewhere classified Status: Acute (5) Type 2 diabetes mellitus: Code(s): E11.9 - Type 2 diabetes mellitus without complications Status: Acute Assessment and Plan: BS reviewed and control adequate (6) Back pain: Code(s): M54.9 - Dorsalgia, unspecified Status: Acute Assessment and Plan: PRN acetaminophen (7) Chronic atrial fibrillation, unspecified: Code(s): I48.20 - Chronic atrial fibrillation, unspecified Status: Acute Assessment and Plan: Continue amiodarone (8) Venous stasis ulcers of both lower extremities: Code(s): I83.019 - Varicose veins of right lower extremity with ulcer of unspecified site; I83.029 - Varicose veins of left lower extremity with ulcer of unspecified site; L97.919 - Non-pressure chronic ulcer of unspecified part of right lower leg with unspecified severity; L97.929 - Non-pressure chronic ulcer of unspecified part of left lower leg with unspecified severity Status: Acute Subjective Date/time seen: 11/12/22 16:21 Interval history: Legs may be a little bit better. Tolerating diet. Chronic back pain worsened by lying in hospital bed. [id number]. Chronic constipation. About every 3 days. Worse since hospitalized. Would like a mild laxative. Denied chest pain. Denied abdominal pain. Denied urinary issues. No abnormal bleeding. Review of Systems Review of Systems: All systems reviewed & are unremarkable except as noted in HPI and below Exam Narrative: HEENT: EOMI, PERRL, sclerae nonicteric, pharyngeal mucosa pink and intact NECK: No JVD CHEST: Clear to auscultation. Normal effort. HEART: NL S1/S2, regular, no murmur ABDOMEN: BS+, soft, nontender, no mass, no bruits EXTREMITIES: 2+ pitting edema with 4+ nonpitting edema bilateral LE's NEUROLOGIC: CN intact and symmetric to inspection. MUSCULOSKELETAL: Tone and strength symmetric. PSYCH: Alert. Oriented to person, place, and time. Objective Data Vital Signs Vital Signs: Vital Signs - 24 hr 11/11/22 17:25 11/11/22 22:00 11/11/22 20:00 Temperature 97.8 F Pulse Rate 96 87 Respiratory Rate 16 Blood Pressure 109/68 Pulse Oximetry 98 Oxygen Delivery Room Air 11/11/22 20:00 11/12/22 00:00 11/12/22 04:00 Temperature Pulse Rate 81 105 H 97 Respiratory Rate Blood Pressure Pulse Oximetry Oxygen Delivery 11/12/22 06:00 11/12/22 08:40 11/12/22 08:40 Temperature 97.3 F L Pulse Rate 83 76 Respiratory Rate 16 Blood Pressure 103/62 Pulse Oximetry 98 Oxygen Delivery Room Air 11/12/22 12:00 11/12/22 13:56 Temperature 97.7 F Pulse Rate 101 H 89 Respiratory Rate 16 Blood Pressure 116/72 Pulse Oximetry 100 Oxygen Delivery Intake/Output Intake/Output: Intake & Output 11/09/22 11/10/22 11/11/22 11/12/22 23:59 23:59 23:59 23:59 Intake Total 50 1320 1696 930 Output Total 450 1650 950 Balance 50 870 46 -20 Meds/Results Medications: Active Medications Gener
[2022-11-12 16:54] LABS: Glucose Point of Care 138 mg/dl (65-105)
[2022-11-12] MEDS: ACETAMINOPHEN 500 MG TABLET 1000 MG PO (18:04)
[2022-11-12] MEDS: SENNOSIDES 8.6 MG TABLET 17.2 MG PO (21:07)
[2022-11-12 21:28] LABS: Glucose Point of Care 174 mg/dl (65-105)
[2022-11-12] MEDS: INSULIN GLARGINE (*BKC) 100 UNITS/ML 35 UNITS SUB-Q (21:31)
[2022-11-13] MEDS: ACETAMINOPHEN 500 MG TABLET 1000 MG PO ×3 (00:01→10:34)
[2022-11-13] MEDS: HEPARIN SODIUM 5,000 UNITS/ML VIAL 5000 UNITS SUB-Q ×3 (05:03→22:01)
[2022-11-13 05:34] VITALS: BP 119/64; PULSE 85; RESP 12; TEMP 36.4; O2SAT 99
[2022-11-13] MEDS: LEVOTHYROXINE SODIUM 100 MCG TABLET PO (05:38)
[2022-11-13 07:24] LABS: Alveolar/Arterial O2 Gradient 24.2 mmHg; Base Excess ABG 10.2 mEq/l (+/-2.0); Fractional Inspired Oxygen 21 %; HCO3 ABG 34.2 mEq/l (22.0-26.0); Oxygen Content ABG 15.1 %vol (16.0-22.0); Oxyhemoglobin 93.9 % THb (90.0-100.0); PCO2 ABG 43.4 mmHg (35.0-45.0); PO2 ABG 73.6 mmHg (80.0-100.0); Total Hemoglobin 11.4 g/dL (12.0-18.0)
[2022-11-13 07:28] LABS: Device ROOM AIR; Modified Allen's Test Pass; Site Drawn RIGHT RADIAL; pH ABG 7.514 (7.350-7.450)
[2022-11-13 07:33] LABS: Hematocrit 29.6 % (37.0-47.0); Hemoglobin 9.1 g/dL (12.0-15.0); Mean Corpuscular HGB Conc 30.7 g/dl (32-36); Mean Corpuscular Hemoglobin 32.5 pg (26-34); Mean Corpuscular Volume 105.7 fl (80-100); Mean Platelet Volume 9.7 fl (7.4-10.4); Platelet Count Result 164 k/mm3 (150-375); Red Cell Distribution Width 18.4 % (11.5-14.5); White Blood Count 4.9 K/mm3 (4.5-10.0)
[2022-11-13 07:38] LABS: Glucose Point of Care 66 mg/dl (65-105)
[2022-11-13 07:40] LABS: Anion Gap 1 mmol/L (8-16); Blood Urea Nitrogen 17 mg/dL (7-17); Calcium 8.1 mg/dL (8.4-10.2); Carbon Dioxide 37 mmol/L (22-30); Chloride 98 mmol/L (98-107); Estimated CRCL calculation 53 ml/min; Estimated Glomerular Filt Rate 60; Glucose 106 mg/dL (65-110); Sodium 136 mmol/L (137-145)
--- NOTE | 2022-11-13 07:43 | PM.IMPN ---
Progress Note: A&P Assessment and Plan (1) CHF (congestive heart failure): Qualifiers: Heart failure chronicity: acute on chronic Heart failure type: unspecified Qualified Code(s): I50.9 - Heart failure, unspecified Code(s): I50.9 - Heart failure, unspecified Status: Acute Assessment and Plan: Acute on chronic SYSTOLIC congestive heart failure (EF 40-45%) 11/13 Transition to PO meds: Losartan, spironolactone, f/u labs; cardiology to see as she will need outpatient f/u (2) Type 2 diabetes mellitus: Code(s): E11.9 - Type 2 diabetes mellitus without complications Status: Acute Assessment and Plan: BS reviewed with recurrent hypoglycemia 11/13 stop pre-meal Novolog, reduce Lantus to 10 U at HS, add Jardiance 10mg daily due to CV disease (3) Lower extremity edema: Code(s): R60.0 - Localized edema Status: Acute Assessment and Plan: chronic venous stasis acute on chronic systolic heart failure morbid obesity (4) Venous stasis dermatitis of both lower extremities: Code(s): I87.2 - Venous insufficiency (chronic) (peripheral) Status: Acute Assessment and Plan: continue leg elevation and compression Needs outpt f/u with wound care (5) Macrocytic anemia: Code(s): D53.9 - Nutritional anemia, unspecified Status: Acute Assessment and Plan: Parameters pending (6) Lymphedema: Code(s): I89.0 - Lymphedema, not elsewhere classified Status: Acute (7) Back pain: Code(s): M54.9 - Dorsalgia, unspecified Status: Acute Assessment and Plan: PRN acetaminophen (8) Chronic atrial fibrillation, unspecified: Code(s): I48.20 - Chronic atrial fibrillation, unspecified Status: Acute Assessment and Plan: Continue amiodarone (9) Venous stasis ulcers of both lower extremities: Code(s): I83.019 - Varicose veins of right lower extremity with ulcer of unspecified site; I83.029 - Varicose veins of left lower extremity with ulcer of unspecified site; L97.919 - Non-pressure chronic ulcer of unspecified part of right lower leg with unspecified severity; L97.929 - Non-pressure chronic ulcer of unspecified part of left lower leg with unspecified severity Status: Acute Assessment and Plan: F/u with wound care as outpatient (10) Right shoulder pain: Code(s): M25.511 - Pain in right shoulder Status: Acute Assessment and Plan: clinically has osteoarthritis and adhesive capsulitis of the right shoulder use Tylenol heating pad in physical therapy and obtain x-ray Subjective Date/time seen: 11/13/22 07:43 Interval history: complains of right shoulder pain and stiffness. Somewhat chronic but worsened she has been here and in the Hospital bed and chair. No history of injury. Tylenol helps the pain. Motion worsens it. It is mild at rest and severe with use, Especially with reaching up. No complaint of chest pain or shortness of breath. Feet are doing about the same. Other than feeling cold when she is out of bed they do not bother her. No GI or complaints. No abnormal bleeding. No focal weakness or numbness. Review of Systems Review of Systems: All systems reviewed & are unremarkable except as noted in HPI and below Exam Narrative: HEENT: EOMI, PERRL, sclerae nonicteric, pharyngeal mucosa pink and intact NECK: No JVD CHEST: Clear to auscultation. Normal effort. HEART: NL S1/S2, regular, no murmur ABDOMEN: BS+, soft, nontender, no mass, no bruits EXTREMITIES: 2+ pitting edema with 4+ nonpitting edema bilateral LE's NEUROLOGIC: CN intact and symmetric to inspection. MUSCULOSKELETAL: Tone and strength symmetric. Decreased Right shoulder range of motion to abduction external react a aguilar is mild abduction and internal rotation is moderate both with pain and crepitance. Strength intact right shoulder. PSYCH: Alert. Oriented
[2022-11-13 08:12] LABS: Immature Reticulocyte Fraction 26.2 % (3.0-15.9); Reticulocyte Hemoglobin Conten 35.2 pg (28.2-35.7); Reticulocyte Percent 4.73 % (0.7-4.3); Reticulocytes Absolute 0.13 M/mm3 (0.02-0.1)
[2022-11-13] MEDS: busPIRone HCL 5 MG TABLET 15 MG PO ×2 (08:26→17:02)
[2022-11-13 08:27] VITALS: PULSE 89
[2022-11-13] MEDS: AMIODARONE HCL 200 MG TABLET 400 MG PO (08:27)
[2022-11-13] MEDS: ROSUVASTATIN 10 MG TABLET PO (08:27)
[2022-11-13 08:28] LABS: Glucose Point of Care 158 mg/dl (65-105)
[2022-11-13] MEDS: MICONAZOLE NITRATE 2% CREAM 30 GM TUBE 1 APPLIC TOPICAL ×2 (08:28→20:29)
[2022-11-13] MEDS: TOLNAFTATE 1% POWDER 45 GM BTL 1 APPLIC TOPICAL ×2 (08:28→20:30)
[2022-11-13] MEDS: SILVERGEL (ELTA) 45 ML 1 APPLIC TOPICAL (08:28)
[2022-11-13] MEDS: LOSARTAN POTASSIUM 12.5 MG TABLET PO (08:28)
[2022-11-13] MEDS: EMPAGLIFLOZIN 10 MG TABLET PO (08:28)
[2022-11-13] MEDS: SPIRONOLACTONE 25 MG TABLET PO (08:28)
[2022-11-13 09:45] LABS: Iron 68 ug/dL (37-170)
[2022-11-13 09:50] LABS: Folic Acid 7.9 ng/mL (2.76->20)
[2022-11-13 09:54] LABS: Percent Iron Saturation 24 % (20-50)
[2022-11-13 11:58] LABS: Glucose Point of Care 158 mg/dl (65-105)
[2022-11-13] MEDS: MAGNESIUM OXIDE 400 MG TABLET PO (12:32)
--- NOTE | 2022-11-13 12:55 | PM.CNCAR ---
Assessment and Plan Assessment and plan (1) Chronic atrial fibrillation, unspecified: Code(s): I48.20 - Chronic atrial fibrillation, unspecified Status: Acute (2) Lower extremity edema: Code(s): R60.0 - Localized edema Status: Acute (3) Lymphedema: Code(s): I89.0 - Lymphedema, not elsewhere classified Status: Acute (4) Venous stasis dermatitis of both lower extremities: Code(s): I87.2 - Venous insufficiency (chronic) (peripheral) Status: Acute (5) Mild left ventricular systolic dysfunction: Code(s): I51.89 - Other ill-defined heart diseases Status: Acute Plan Patient does have mild LV systolic dysfunction noted on a recent echo. Losartan, Aldactone, and Jardiance have been started which I agree with. Will start oral Lasix. Appears to have chronic lymphedema and venous stasis insufficiency which is out of proportion to the degree of her mild LV dysfunction. For her atrial fibrillation, I am going to reduce the dose of her Amiodarone to 200mg QD. She was on Warfarin during her recent hospitalization, but has not been restarted here. Recommend to restart if no contraindications. Goal INR is 2-3. We will arrange outpatient follow-up in our clinic. History of Present Illness History of Present Illness Consult date/time: 11/13/22 12:55 Requesting physician: Tadeo Amaro MD Consult reason: congestive heart failure Reason For Visit: CHF, BLE swelling and weeping, CKD Narrative: Reason for consult: A/C HFrEF, Needs cardiology F/U HPI: Patient is an 82-year-old female with atrial fibrillation on Warfarin, diabetes complicated by peripheral neuropathy, hyperlipidemia, chronic venous insufficiency who was admitted on 11/09 for bilateral lower extremity edema. Patient is a poor historian overall but denies chest pain, palpitations, shortness of breath. Reports tenderness in her lower extremities. Patient was started on IV diuresis on 11/09. Per the son's report, patient has had chronic lymphedema. IV Lasix stopped due to metabolic alkalosis. Her echocardiogram 10/11 showed LVEF 40-45% (however patient was tachycardic during the study), mild TR. Patient used to see Dr. Matos, but now patient lives closer to [place] and son would like to establish care with us instead. Review of Systems Review of Systems: All systems reviewed & are unremarkable except as noted in HPI and below (HPI) [facility] Past Medical History Medical History Anxiety Chronic anticoagulation Chronic atrial fibrillation, unspecified Hyperlipidemia Hyperlipidemia Hypothyroidism Type 2 diabetes mellitus Surgical History Surgical History No history of major surgery within 1 month Family History Family History Other Family history non-contributory Social History Social History Social History: Surrogate medical decision maker: Khari Kramer, son. Code status: Full code. Smoking status: Never smoker Second hand tobacco smoke exposure: No Alcohol intake: never Substance use: never Substance use type: does not use Lack of Transportation: No Lack of Food: Never True Current Housing: I Have Housing Concerned About Future Housing: No Difficulty Paying Gas/Electric Bills: No Difficulty Paying for Meds: No Currently Unemployed: No Education: High School Diploma/GED Difficulty w/ Childcare or Family Care: No Spiritual care concerns: No Meds Home Medications and Allergies Home Medications Medication Instructions Recorded Confirmed Type buspirone 15 mg tablet 15 mg PO BID 10/11/22 11/09/22 History ketoconazole 2 % topical cream 1 applic topical Q12H 10/11/22 11/09/22 History levothyroxine 100 mcg tablet 100 mcg PO DAILY 10/11/22 11/09/22 History metformin 1
[2022-11-13] MEDS: traMADol HCL (*CRX) 25 MG TABLET PO ×2 (13:32→21:23)
[2022-11-13 13:57] LABS: IFOB Positive Control Positive; Immunochemical Fecal Occult Bl Negative (N)
[2022-11-13 14:00] VITALS: BP 112/60; PULSE 96; RESP 18; TEMP 36.7; O2SAT 100
[2022-11-13 16:50] LABS: Glucose Point of Care 136 mg/dl (65-105)
[2022-11-13 20:00] VITALS: PULSE 85; RESP 16; O2SAT 100
[2022-11-13] MEDS: SENNOSIDES 8.6 MG TABLET 17.2 MG PO (20:29)
[2022-11-13] MEDS: INSULIN GLARGINE (*BKC) 100 UNITS/ML 10 UNITS SUB-Q (20:30)
[2022-11-13 20:37] LABS: Glucose Point of Care 157 mg/dl (65-105)
[2022-11-13 21:38] VITALS: BP 109/64; PULSE 85; RESP 16; TEMP 36.6; O2SAT 100
[2022-11-14] MEDS: ACETAMINOPHEN 500 MG TABLET 1000 MG PO ×2 (03:07→08:11)
[2022-11-14] MEDS: HEPARIN SODIUM 5,000 UNITS/ML VIAL 5000 UNITS SUB-Q (05:12)
[2022-11-14] MEDS: traMADol HCL (*CRX) 25 MG TABLET PO (05:12)
[2022-11-14] MEDS: LEVOTHYROXINE SODIUM 100 MCG TABLET PO (05:13)
[2022-11-14 05:45] VITALS: BP 111/74; PULSE 96; RESP 14; TEMP 36.2; O2SAT 96
[2022-11-14 06:39] LABS: Hematocrit 31.4 % (37.0-47.0); Hemoglobin 9.7 g/dL (12.0-15.0); Mean Corpuscular HGB Conc 30.9 g/dl (32-36); Mean Corpuscular Hemoglobin 32.8 pg (26-34); Mean Corpuscular Volume 106.1 fl (80-100); Mean Platelet Volume 9.5 fl (7.4-10.4); Platelet Count Result 173 k/mm3 (150-375); Red Blood Count 2.96 M/mm3 (4.2-5.4); Red Cell Distribution Width 18.4 % (11.5-14.5); White Blood Count 5.1 K/mm3 (4.5-10.0)
[2022-11-14 06:59] LABS: Anion Gap -2 mmol/L (8-16); Blood Urea Nitrogen 15 mg/dL (7-17); Calcium 8.8 mg/dL (8.4-10.2); Carbon Dioxide 37 mmol/L (22-30); Chloride 101 mmol/L (98-107); Estimated CRCL calculation 53 ml/min; Estimated Glomerular Filt Rate 60; Glucose 98 mg/dL (65-110); Potassium 3.9 mmol/L (3.4-5.0); Sodium 136 mmol/L (137-145)
[2022-11-14 07:42] LABS: Glucose Point of Care 114 mg/dl (65-105)
[2022-11-14] MEDS: SPIRONOLACTONE 25 MG TABLET PO (08:12)
[2022-11-14] MEDS: EMPAGLIFLOZIN 10 MG TABLET PO (08:12)
[2022-11-14 08:13] VITALS: PULSE 96
[2022-11-14] MEDS: LOSARTAN POTASSIUM 12.5 MG TABLET PO (08:13)
[2022-11-14] MEDS: FUROSEMIDE 40 MG TABLET PO (08:13)
[2022-11-14] MEDS: AMIODARONE HCL 200 MG TABLET PO (08:13)
[2022-11-14] MEDS: TOLNAFTATE 1% POWDER 45 GM BTL 1 APPLIC TOPICAL (08:17)
[2022-11-14] MEDS: busPIRone HCL 5 MG TABLET 15 MG PO (08:17)
[2022-11-14] MEDS: SILVERGEL (ELTA) 45 ML 1 APPLIC TOPICAL (08:17)
[2022-11-14] MEDS: ROSUVASTATIN 10 MG TABLET PO (08:17)
[2022-11-14] MEDS: MICONAZOLE NITRATE 2% CREAM 30 GM TUBE 1 APPLIC TOPICAL (08:17)
[2022-11-14 09:16] LABS: INR 1.1; Prothrombin Time 14.6 Seconds (11.1-14.7)
--- NOTE | 2022-11-14 10:43 | PM.DS ---
DS: Admitting Diagnosis Discharge Date 11/14/2022 Admitting Diagnosis CHF exacerbation DS: Discharge Diagnosis Discharge Diagnosis (1) Chronic atrial fibrillation, unspecified: Code(s): I48.20 - Chronic atrial fibrillation, unspecified Status: Acute (2) CHF (congestive heart failure): Qualifiers: Heart failure chronicity: acute on chronic Heart failure type: unspecified Qualified Code(s): I50.9 - Heart failure, unspecified Code(s): I50.9 - Heart failure, unspecified Status: Acute (3) Lymphedema: Code(s): I89.0 - Lymphedema, not elsewhere classified Status: Acute (4) Type 2 diabetes mellitus: Code(s): E11.9 - Type 2 diabetes mellitus without complications Status: Acute DS: Summary Hospital Course Hospital Course: Patient is an 82-year-old female with atrial fibrillation on Warfarin, diabetes complicated by peripheral neuropathy, hyperlipidemia, chronic venous insufficiency who was admitted on 11/09 for bilateral lower extremity edema. Cardiology was consulted. Reports tenderness in her lower extremities. Patient was started on IV diuresis on 11/09. Per the son's report, patient has had chronic lymphedema. IV Lasix stopped due to metabolic alkalosis. Her echocardiogram 10/11 showed LVEF 40-45% (however patient was tachycardic during the study), mild TR. Lasix was changed to p.o.. Given her history of congestive heart failure losartan and Aldactone were added. Patient is also diabetic so jardiance was added. Will discontinue metformin since patient is already on insulin. Restart Coumadin. Monitor INR daily. Amiodarone dose decreased to 200 mg daily per Cardiology. Patient is stable and is being discharged Time Spent with Patient Time attestation: Total time spent providing and/or coordinating discharge services: Exam Const: General: cooperative and comfortable Orientation/consciousness: patient oriented x3 HENMT: Head: normal to inspection Mouth: Yes Normal oral and palatal mucosa present Eyes: General: appearance normal, both eyes and all related structures Resp: Effort & Inspection: normal respiratory effort Auscultation: clear to auscultation bilaterally Cardio: Rate: regular rate Rhythm: regular rhythm Heart sounds: S1 normal heart sound present and S2 normal heart sound present GI: GI Palp: Yes Soft to palpation Auscultation: normal bowel sounds Skin: General skin exam: normal color and no rashes or lesions noted Neuro: General: patient oriented x3, no focal motor deficits and CN's II-XI intact bilaterally Speech: normal speech Extrem: General: full ROM Psych: Appearance: grossly normal DS: Data Data Completed and Pending Labs on day of discharge: Labs from last 24 hours 11/14/22 11/14/22 11/14/22 08:56 07:33 06:16 WBC 5.1 RBC 2.96 L Hgb 9.7 L Hct 31.4 L MCV 106.1 H MCH 32.8 MCHC 30.9 L RDW 18.4 H Plt Count 173 MPV 9.5 PT 14.6 INR 1.1 Sodium 136 L Potassium 3.9 Chloride 101 Carbon Dioxide 37 H Anion Gap -2 L BUN 15 Creatinine 0.90 Estim Creat Clear Calc 53 Estimated GFR 60 Glucose 98 POC Capillary Glucose 114 H Calcium 8.8 Stl Occult Blood (IFOB) 11/13/22 11/13/22 11/13/22 20:26 16:47 13:41 WBC RBC Hgb Hct MCV MCH MCHC RDW Plt Count MPV PT INR Sodium Potassium Chloride Carbon Dioxide Anion Gap BUN Creatinine Estim Creat Clear Calc Estimated GFR Glucose POC Capillary Glucose 157 H 136 H Calcium Stl Occult Blood (IFOB) Negative 11/13/22 11:54 WBC RBC Hgb Hct MCV MCH MCHC RDW Plt Count MPV PT INR Sodium Potassium Chloride Carbon Dioxide Anion Gap BUN Creatinine Estim Creat Clear Calc Estimated GFR Glucose POC Capillary Glucose 158 H Calcium Stl Occult Blood (IFOB) Discharge Plan Discha
[2022-11-14 11:46] LABS: Glucose Point of Care 112 mg/dl (65-105)
[2022-11-14 12:10] LABS: EDCOVIDSCREEN Negative (Negative)
[2022-11-14] MEDS: MAGNESIUM OXIDE 400 MG TABLET PO (12:23)
== END 2022-11-14 14:54 | DRG 292 ==
LOC: ANHED 18:34 → ANH3MEDSUR 22:46
PROVIDERS: Internal Medicine; Admitting Provider Internal Medicine; Emergency Provider Physician Assistant; PCP Internal Medicine; Visit Provider Hospitalist
DX: I50.23 Acute on chronic systolic (congestive) heart failure (principal); I48.20 Chronic atrial fibrillation, unspecified; L97.919 Non-pressure chronic ulcer of unspecified part of right lower leg with unspecified severity; L97.929 Non-pressure chronic ulcer of unspecified part of left lower leg with unspecified severity; Z68.42 Body mass index [BMI] 45.0-49.9, adult; Z20.822 Contact with and (suspected) exposure to COVID-19; E66.01 Morbid (severe) obesity due to excess calories; I83.019 Varicose veins of right lower extremity with ulcer of unspecified site; I83.029 Varicose veins of left lower extremity with ulcer of unspecified site; E11.42 Type 2 diabetes mellitus with diabetic polyneuropathy; N18.9 Chronic kidney disease, unspecified; E78.5 Hyperlipidemia, unspecified; I89.0 Lymphedema, not elsewhere classified; E03.9 Hypothyroidism, unspecified; M54.9 Dorsalgia, unspecified; D53.9 Nutritional anemia, unspecified; I51.89 Other ill-defined heart diseases; M19.011 Primary osteoarthritis, right shoulder; M75.01 Adhesive capsulitis of right shoulder; Z79.01 Long term (current) use of anticoagulants
CPT/HCPCS: 36415; 36600; 71046; 73030; 80048; 80053; 81001; 82274; 82607; 82746; 82805; 82948; 83540; 83550; 83605; 83735; 83880; 84484; 85025; 85027; 85046; 85610; 85730; 87426; 93005; 93970; 96365; 96375; 97110; 97161; 97165; 97530; 99285; A9270; C9803; G0378; J1644; J1815; J1940; J3475

== ENCOUNTER 2023-01-15 08:07 | Observation (INO) | payer MEDICARE, SELFPAY ==
[2023-01-15] VITALS (13 sets, daily range): BP systolic 100–122; BP diastolic 56–96; PULSE 86–103; RESP 16–20; TEMP 36.2–36.8; O2SAT 95–100; BMI 40.4
--- NOTE | ~2023-01-15 | US_ITS ---
Renal-Bladder ultrasound Clinical History: Acute kidney injury Technique: Real-time sonographic imaging of the kidneys and urinary bladder was performed. Findings: The right kidney measures 10.7 cm in length and the left kidney measures 10.7 cm. There is no hydronephrosis or renal calculus identified. Renal cortical echogenicity is within normal limits. No renal mass lesion is identified. The urinary bladder is collapsed, limiting evaluation. Impression: Unremarkable ultrasound of the kidneys. Collapsed urinary bladder limits evaluation. Reviewed, dictated and finalized at location M. Impression: Unremarkable ultrasound of the kidneys. Collapsed urinary bladder limits evaluation.
--- NOTE | ~2023-01-15 | CT_ITS ---
EXAMINATION: CT lumbar spine wo con DATE: 01/15/2023 10:24 INDICATION: Low back pain TECHNIQUE: Computed tomography (CT) of the lumbar spine was performed without intravenous contrast. T he dose-length product (DLP) was 1320.06 mGy-cm. Iterative reconstruction was used. COMPARISON: 10/20/2022 FINDINGS: There is a fracture at the anterior/superior corner of the L1 vertebral body on the right. The vertebral body heights are maintained. There is vacuum disc phenomena and moderate loss of interv ertebral disc space height at L2-3. There is moderate loss of intervertebral disc space height at L1- 2 and severe loss of intervertebral disc space height at L4-5. There is severe facet joint osteoarthr itis throughout the lumbar spine. There is a resolving right iliopsoas hematoma with extension into t he right retroperitoneal fat. IMPRESSION: 1. Fracture at the anterior/superior corner of the L1 vertebral body. 2. Severe lumbar spondylosis. Reviewed, dictated and finalized at location A.
--- NOTE | ~2023-01-15 | XR_ITS ---
EXAMINATION: XR chest 2V DATE: 01/15/2023 12:01 INDICATION: Right-sided chest pain TECHNIQUE: Frontal and lateral views of the chest are obtained COMPARISON: 11/13/2022 FINDINGS: The lungs are free of acute opacities. No pleural effusion or pneumothorax. The cardiomedia stinal silhouette is normal. There is moderate thoracic spondylosis. IMPRESSION: 1. No acute cardiopulmonary abnormality. Reviewed, dictated and finalized at location A.
[2023-01-15 09:37] LABS: Add Urine Microscopic? YES; Appearance Urine Clear (Clear); Bacteria Urine 4+ /hpf; Bilirubin Urine Negative (Negative); Blood Urine Negative (Negative); Color Urine Yellow (Yellow); Glucose Urine UA 2+ mg/dL (Negative); Ketones Urine Negative (Negative); Leukocyte Esterase Ur Trace LEU/UL (Negative); Need Manual Microscopic Reviewed; Nitrate Urine Negative (Negative); Protein Urine Negative (Negative); RBC Urine 0-2 /hpf (0-2); Specific Grav Ur 1.013 (1.001-1.035); Squamous Epithelial Cell Urine None seen /hpf (Few); Urobilinogen Urine 0.2 mg/dL (<2.0); WBC Urine 0-5 /hpf
[2023-01-15 09:51] LABS: Basophils Percent Auto 0.4 % (0.2-1.2); Eosinophils Absolute Auto 0.1 K/mm3 (0-0.3); Eosinophils Percent Auto 0.8 % (0-4.4); Hematocrit 45.1 % (37.0-47.0); Immature Granulocyte Absolute 0.06 K/mm3 (0.00-0.031); Immature Granulocyte Percent A 0.6 % (0-0.5); Lymphocytes Absolute Auto 2.45 K/mm3 (0.9-3.2); Lymphocytes Percent Auto 22.8 % (18.3-44.2); Mean Corpuscular HGB Conc 33.3 g/dl (32-36); Mean Corpuscular Hemoglobin 33.9 pg (26-34); Mean Platelet Volume 8.8 fl (7.4-10.4); Monocytes Absolute Auto 0.7 K/mm3 (0.1-0.6); Monocytes Percent Auto 6.8 % (2.6-8.5); Neutrophils Absolute Auto 7.4 K/mm3 (1.3-6.7); Neutrophils Percent Auto 68.6 % (45.5-73.1); Platelet Count Result 195 k/mm3 (150-375); Red Blood Count 4.42 M/mm3 (4.2-5.4); White Blood Count 10.8 K/mm3 (4.5-10.0)
--- NOTE | 2023-01-15 09:55 | ED.BACK ---
HPI - Back Pain/Injury General Chief Complaint: Back Pain/Injury Stated Complaint: back pain Time Seen by Provider: 01/15/23 08:56 Source: patient Mode of arrival: ambulatory Limitations: no limitations History of Present Illness HPI Narrative: Patient is an 82-year-old female who presents to the ED with report of right low back pain. Patient reports the pain began suddenly a few days ago in her sleep. Pain has progressively worsened since then. She is unable to find any comfortable positions. Worse with any type of movement, but also present when sitting still and currently in the ED bed. She denies any fall or injury. She has never had pain like this before. Pain does somewhat radiate down her posterior right leg. She has tried taking Tylenol without relief. She last took this a few hours ago. Denies any other pain. Denies bowel or bladder incontinence, saddle anesthesia, numbness in right lower extremity. Related Data Home Medications Medication Instructions Recorded Confirmed buspirone 15 mg tablet 15 mg PO TID 10/11/22 01/15/23 rosuvastatin 10 mg tablet 10 mg PO HS 10/11/22 01/15/23 apixaban 5 mg tablet (Eliquis) 5 mg PO BID 01/15/23 01/15/23 furosemide 40 mg tablet 40 mg PO EVERY OTHER DAY 01/15/23 01/15/23 furosemide 40 mg tablet 60 mg PO EVERY OTHER DAY 01/15/23 01/15/23 levothyroxine 125 mcg tablet 125 mcg PO DAILY 01/15/23 01/15/23 spironolactone 25 mg tablet 25 mg PO BID 01/15/23 01/15/23 Allergies Allergy/AdvReac Type Severity Reaction Status Date / Time No Known Allergies Allergy Verified 10/19/22 23:31 Review of Systems Review of Systems: CONSTITUTIONAL: Denies fever, chills, or sweats. CARDIOVASCULAR: Denies chest pain. RESPIRATORY: Denies dyspnea. GASTROINTESTINAL: Denies abdominal pain, nausea, vomiting. MUSCULOSKELETAL: See HPI. NEUROLOGIC: See HPI. All systems reviewed & are unremarkable except as noted in HPI and below PMFSH Past Medical History Medical History Anxiety Chronic anticoagulation Chronic atrial fibrillation, unspecified Hyperlipidemia Hyperlipidemia Hypothyroidism Type 2 diabetes mellitus Surgical History Surgical History No history of major surgery within 1 month Family History Family History Mother Arthritis Other Family history non-contributory Social History Social History Social History: Surrogate medical decision maker: Khari Kramer, son. Code status: Full code. Smoking status: Never smoker Second hand tobacco smoke exposure: No Alcohol intake: never Substance use: never Substance use type: does not use Lack of Transportation: No Lack of Food: Never True Current Housing: I Have Housing Concerned About Future Housing: No Difficulty Paying Gas/Electric Bills: No Difficulty Paying for Meds: No Currently Unemployed: No Education: Decline to Answer Difficulty w/ Childcare or Family Care: No Spiritual care concerns: No Exam Narrative: GENERAL: Uncomfortable appearing, elderly, morbidly obese with BMI of 43.5, non-toxic, in mild acute distress due to pain. HEAD: Normocephalic, atraumatic. NECK: Supple. No adenopathy, no masses. RESPIRATORY: Airway patent, respirations nonlabored. Clear to auscultation bilaterally, no rales, rhonchi, wheezing. CARDIOVASCULAR: Regular rate and rhythm without murmurs, rubs, or gallops. Pedal pulses 2+ and equal bilaterally. ABDOMINAL: Soft, nontender, nondistended, no hepatosplenomegaly. Normoactive BS. MUSCULOSKELETAL: Moves all extremities. Weakness in BLE, equal bilaterally. Tenderness throughout lower midline lumbar spine and right-sided paraspinal musculature, extending over SI region, posterior right buttock, reproducing pain. Sensation intact. SKIN: Wa
[2023-01-15 10:01] LABS: Alanine Aminotransferase 19 U/L (6-35); Albumin Level 4.7 g/dL (3.5-5.1); Alkaline Phosphatase 143 U/L (38-126); Anion Gap 12 mmol/L (8-16); Aspartate Amino Transferase 30 U/L (14-36); Bilirubin,Total 1.1 mg/dL (0.2-1.3); Blood Urea Nitrogen 34 mg/dL (7-17); Calcium 9.8 mg/dL (8.4-10.2); Carbon Dioxide 24 mmol/L (22-30); Chloride 101 mmol/L (98-107); Estimated CRCL calculation 37 ml/min; Estimated Glomerular Filt Rate 39; Glucose 167 mg/dL (65-110); Potassium 4.9 mmol/L (3.4-5.0); Sodium 137 mmol/L (137-145)
[2023-01-15] MEDS: MORPHINE SULFATE (*CRX) 4 MG/ML INJ IV PUSH ×3 (10:05→15:54)
[2023-01-15] MEDS: ONDANSETRON INJ 4 MG/2 ML VIAL IV PUSH (10:06)
[2023-01-15] MEDS: SODIUM CHLORIDE 0.9% IV 500 ML 999 ML IV CONT (12:10)
[2023-01-15 13:20] LABS: INR 1.4; Prothrombin Time 18.3 Seconds (11.1-14.7)
[2023-01-15 13:21] LABS: Partial Thromboplastin Time 31.7 SECONDS (22.3-36.8)
[2023-01-15] MEDS: ACETAMINOPHEN 500 MG TABLET 1000 MG PO (15:54)
--- NOTE | 2023-01-15 16:05 | ADMGEN ---
This patient, Damaris Kramer, was admitted to [facility] Surg Room 332-01. Patient/family oriented to hospital policies and general routines including ID bracelet, bed and alarms, visiting hours, pain management, procedures, bathroom and other care routines, personal items, smoking policy, room service/diet, and visiting hours. Information on how to activate the Rapid Response Team has been discussed. Patient/Family are encouraged to report perceived risks to care and to ask questions if they do not understand what they are told or what they should do.
[2023-01-15 16:35] LABS: Glucose Point of Care 140 mg/dl (65-105)
--- NOTE | 2023-01-15 17:36 | PM.IMHP ---
H&P: HPI History of Present Illness Date/Time: 01/15/23 19:00 Chief Complaint: Back pain. Narrative: This is a very pleasant 82-year-old female with type 2 diabetes mellitus, hypertension, hypothyroidism, and paroxysmal atrial fibrillation on chronic anticoagulation who presented to the emergency department via EMS from home for evaluation of back pain. The patient provides the following history. She woke from sleep with few days ago with pain in the right mid and low back region that she has difficulties describing. It has been pretty consistent since the onset but it seems to improve with rest and is worse with movement. In fact she has been bed for several days due to the pain. She has been taking Tylenol at home without much relief. She has not had any recent falls or injuries to her knowledge. She denies saddle anesthesia, urinary retention, bowel incontinence, and focal weakness or numbness in the lower extremities. Lumbar CT showed a fracture at the anterior superior corner of the L1 vertebral body and severe lumbar spondylosis. She is being admitted in this setting for pain control and neurosurgery consultation. Her workup was also significant for an elevated BUN and creatinine from baseline at 341.30 respectively. She admits that she has not been eating or drinking very well the last few days. Again she has not noticed any difficulties urinating. Review of Systems Review of Systems: Twelve systems were reviewed. No fever, chills, or sweats. No chest pain or shortness of breath. No cough. No syncope or near syncope. She denies dysuria, urgency, hesitancy, and hematuria. No vomiting or diarrhea. Except as documented, all other systems were reviewed and are negative. [facility] Past Medical History Medical History Anxiety Chronic anticoagulation Chronic atrial fibrillation, unspecified Hyperlipidemia Hyperlipidemia Hypothyroidism Type 2 diabetes mellitus Surgical History Surgical History No history of major surgery within 1 month Family History Family History Mother Arthritis Other Family history non-contributory Social History Social History Social History: Surrogate medical decision maker: Khari Kramer, son. Code status: Full code. Smoking status: Never smoker Second hand tobacco smoke exposure: No Alcohol intake: never Substance use: never Substance use type: does not use Lack of Transportation: No Lack of Food: Never True Current Housing: I Have Housing Concerned About Future Housing: No Difficulty Paying Gas/Electric Bills: No Difficulty Paying for Meds: No Currently Unemployed: No Education: Decline to Answer Difficulty w/ Childcare or Family Care: No Spiritual care concerns: No Meds Home Medications and Allergies Home Medications Medication Instructions Recorded Confirmed Type buspirone 15 mg tablet 15 mg PO TID 10/11/22 01/15/23 History rosuvastatin 10 mg tablet 10 mg PO HS 10/11/22 01/15/23 History insulin glargine 100 unit/mL 45 unit (0.45 mL) subcut HS 1 10/17/22 01/15/23 Rx subcutaneous solution (Lantus month #13.5 mL U-100 Insulin) tolnaftate 1 % topical powder 1 applic topical Q12HR 1 month #45 10/17/22 01/15/23 Rx grams amiodarone 200 mg tablet (Pacerone) 200 mg PO DAILY 1 month #120 tabs 11/14/22 01/15/23 Rx empagliflozin 10 mg tablet 10 mg PO DAILY #30 tabs 11/14/22 01/15/23 Rx (Jardiance) losartan 25 mg tablet 12.5 mg PO DAILY #30 tabs 11/14/22 01/15/23 Rx apixaban 5 mg tablet (Eliquis) 5 mg PO BID 01/15/23 01/15/23 History furosemide 40 mg tablet 40 mg PO EVERY OTHER DAY 01/15/23 01/15/23 History furosemide 40 mg tablet 60 mg PO EVERY OTHER DAY 01/15/23 01/15/23 History levothyroxine 125 mcg tablet 125 mcg PO DA
[2023-01-15 20:44] LABS: Glucose Point of Care 191 mg/dl (65-105)
[2023-01-15] MEDS: MORPHINE SULFATE (*CRX) 2 MG/ML INJ IV PUSH (23:52)
[2023-01-15] MEDS: ACETAMINOPHEN 325 MG TABLET 650 MG PO (23:53)
[2023-01-16] MEDS: APIXABAN 5 MG TABLET PO ×3 (00:28→20:16)
[2023-01-16] MEDS: ROSUVASTATIN 10 MG TABLET PO ×2 (00:28→20:16)
[2023-01-16] MEDS: SODIUM CHLORIDE 0.9% IV 1,000 ML 100 ML IV CONT (00:29)
[2023-01-16] MEDS: INSULIN GLARGINE (*BKC) 100 UNITS/ML 45 UNITS SUB-Q ×2 (00:30→20:18)
[2023-01-16] MEDS: LIDOCAINE 5% PATCH 1 PATCH TRANSDERM ×2 (00:35→07:57)
[2023-01-16 04:23] LABS: Creatinine Urine 82.1 mg/dL; Potassium Urine Random 52.4 meq/L; Sodium Urine Random 40 meq/L; Urea Random Urine 580 MG/DL
[2023-01-16] MEDS: HYDROcodone/acetaminophen (*CRX) 5-325 MG TABLET 1 TAB PO ×3 (05:24→18:19)
[2023-01-16] MEDS: LEVOTHYROXINE SODIUM 125 MCG TABLET PO (05:24)
[2023-01-16 05:26] VITALS: BP 102/56; PULSE 87; RESP 18; TEMP 36; O2SAT 96
[2023-01-16 06:42] LABS: Hematocrit 41.4 % (37.0-47.0); Mean Corpuscular HGB Conc 31.4 g/dl (32-36); Mean Corpuscular Hemoglobin 32.8 pg (26-34); Mean Corpuscular Volume 104.5 fl (80-100); Mean Platelet Volume 8.8 fl (7.4-10.4); Platelet Count Result 185 k/mm3 (150-375); Red Blood Count 3.96 M/mm3 (4.2-5.4); Red Cell Distribution Width 16.2 % (11.5-14.5); White Blood Count 8.3 K/mm3 (4.5-10.0)
[2023-01-16 06:49] LABS: Alanine Aminotransferase 16 U/L (6-35); Albumin Level 4.3 g/dL (3.5-5.1); Alkaline Phosphatase 127 U/L (38-126); Anion Gap 7 mmol/L (8-16); Aspartate Amino Transferase 23 U/L (14-36); Bilirubin,Total 1.2 mg/dL (0.2-1.3); Blood Urea Nitrogen 35 mg/dL (7-17); Calcium 9.2 mg/dL (8.4-10.2); Carbon Dioxide 25 mmol/L (22-30); Chloride 103 mmol/L (98-107); Creatine Kinase 81 U/L (30-135); Estimated CRCL calculation 35 ml/min; Estimated Glomerular Filt Rate 39; Glucose 123 mg/dL (65-110); Magnesium 2.3 mg/dL (1.6-2.3); Potassium 4.2 mmol/L (3.4-5.0); Sodium 135 mmol/L (137-145)
[2023-01-16 07:01] LABS: Hemoglobin A1C 6.3 % (<5.7)
[2023-01-16] MEDS: AMIODARONE HCL 200 MG TABLET PO (07:49)
[2023-01-16] MEDS: LOSARTAN POTASSIUM 12.5 MG TABLET PO (07:49)
[2023-01-16] MEDS: busPIRone HCL 5 MG TABLET 15 MG PO ×3 (07:49→18:19)
[2023-01-16] MEDS: EMPAGLIFLOZIN 10 MG TABLET PO (07:50)
[2023-01-16] MEDS: TOLNAFTATE 1% POWDER 45 GM BTL 1 APPLIC TOPICAL ×2 (07:50→20:16)
[2023-01-16 07:59] LABS: Free T4 Free Thyroxine Reflex 1.23 ng/dL (0.78-2.19)
[2023-01-16 08:00] VITALS: BP 102/56; PULSE 87; RESP 18; TEMP 36; O2SAT 96
[2023-01-16 08:04] LABS: Glucose Point of Care 112 mg/dl (65-105)
[2023-01-16 08:45] LABS: Total Triiodothyronine (T3) 0.69 NG/ML (0.97-1.69)
[2023-01-16 11:55] LABS: Glucose Point of Care 149 mg/dl (65-105)
--- NOTE | 2023-01-16 12:12 | PM.IMPN ---
Progress Note: A&P Assessment and Plan (1) Closed fracture of lumbar vertebral body: Code(s): S32.009A - Unspecified fracture of unspecified lumbar vertebra, initial encounter for closed fracture Status: Acute (2) Acute kidney injury: Code(s): N17.9 - Acute kidney failure, unspecified Status: Acute (3) Abnormal urinalysis: Code(s): R82.90 - Unspecified abnormal findings in urine Status: Acute (4) Chronic atrial fibrillation, unspecified: Code(s): I48.20 - Chronic atrial fibrillation, unspecified Status: Acute (5) Type 2 diabetes mellitus: Code(s): E11.9 - Type 2 diabetes mellitus without complications Status: Acute (6) Chronic anticoagulation: Code(s): Z79.01 - penitentiary (current) use of anticoagulants Status: Acute (7) Hypothyroidism: Code(s): E03.9 - Hypothyroidism, unspecified Status: Acute Plan The patient presented to the emergency department for evaluation of back pain as per HPI. Labs, imaging, EKG, and all reports were personally reviewed. She does not recall injuring the area and she has not had any recent falls. Imaging shows L1 vertebral body fracture as detailed in HPI. Analgesics available as needed. Neurosurgery consulted and their opinion is appreciated. She technically has an acute kidney injury with elevated BUN and creatinine from baseline. She looks a bit dry on exam and it sounds as though she has not been doing much aside from lying in bed the last few days due to pain, including probably decreased oral intake. Curiel catheter inserted for strict I/O. Renal ultrasound ordered for further evaluation. Check urine electrolytes. Avoid nephrotoxic agents. Urinalysis is abnormal however she has no symptoms to suggest UTI thus will hold antibiotics, pending urine culture. She is chronically in atrial fibrillation is rate controlled. Continue apixaban for stroke prophylaxis. Continue basal insulin. Initiate sliding scale insulin, Accu-Cheks, and hypoglycemic protocol. Her blood pressures were reviewed and they are stable. Her home medications will be reviewed and resumed as appropriate. Subjective Date/time seen: 01/16/23 12:12 Interval history: No complaints Exam Const: Other: Well-developed female in the semi-Jacobs position in bed in no acute distress. She is in good spirits. Weight: 103.4 kg. BMI: 40.4. HENMT: Other: Normocephalic, atraumatic. Nares pain bilaterally. Oral mucosa moist. Eyes: Other: Pupils are reactive. Extraocular motions intact. Sclerae anicteric. Neck: Other: Supple. No midline vertebral tenderness. Resp: Other: Respirations are nonlabored and lungs are clear to auscultation. Cardio: Other: Irregularly irregular rate and rhythm. GI: Other: Abdomen is soft, obese, nontender, nondistended with positive bowel sounds. Back/Spine/Pelvis: Other: No midline vertebral tenderness. She is tender to palpation over the lumbar paraspinous muscles. No pain with leg raise though she is weak and is only able to raise her legs up a few inches and she let some fall quite quickly to gravity. Sensation intact throughout the lower extremities. Skin: Other: Warm and dry. Chronic hyperpigmentation of the lower legs bilaterally. Neuro: Other: Alert and oriented. Cranial nerves 2-12 are grossly intact. No gross focal deficits to casual conversation. Extrem: Other: No cyanosis or clubbing. Trace lower extremity edema bilaterally. Psych: Other: Pleasant and cooperative. Appropriate mood and affect. Objective Data Vital Signs Vital Signs: Vital Signs - 24 hr 01/15/23 12:30 01/15/23 14:35 01/15/23 15:40 Temperature 97.3 F L 97.2 F L Pulse Rate 102 H 100 98 Respiratory Rate 16 16 16 Blood Pressure 106/76 121/80 117/96 H Pulse Oximetry 98 97 98 Oxygen Delivery 01/15/23 15:49 01/15/23 16:38 01/15/23 21:19 Temperature 98.
[2023-01-16 14:10] VITALS: BP 112/62; PULSE 86; RESP 16; TEMP 36.4; O2SAT 95
--- NOTE | 2023-01-16 16:46 | WPDNEUROSGCN ---
Assessment and Plan Assessment and plan (1) Closed fracture of lumbar vertebral body: Code(s): S32.009A - Unspecified fracture of unspecified lumbar vertebra, initial encounter for closed fracture Status: Acute Assessment and Plan: Damaris Is an 82-year-old female with a small anterior superior endplate fracture at L1. I believe that she can in joint out of bed activity and participate in physical and occupational therapy. If her pain is not well controlled in a brace could be obtained although I do not think it is necessary for healing. If necessary she may follow-up with us in a month with a new CT scan. Consult date: 01/16/23 HPI: Damaris Kramer is a 82 year old female with type 2 diabetes mellitus, hypertension, hypothyroidism, and paroxysmal atrial fibrillation on chronic anticoagulation Who experienced the abrupt onset of pain in her back when she twisted while in bed. This persisted over the next few days until she presented to the [place] [facility] because of this discomfort. She states that she is now feeling significantly better and is having relatively little pain in her back. She does not report any radiation into her lower extremities. She is not having any specific muscle group weakness or dermatomal numbness. She is not having any bowel or bladder difficulty. She had a CT scan done at in the emergency room demonstrated an anterior superior endplate or osteophyte fracture. She remained essentially bed ridden for a few days after the incident occurred. She has not been ambulatory so far this admission. Review of Systems Review of Systems: Patient denies shortness of breath, cough, fever, chills, nausea, vomiting, weight loss, weight gain, chest pain, dysuria. She has a Curiel catheter in place. She has a back pain as above. Review of systems is otherwise negative except as noted elsewhere. [facility] Past Medical History Medical History Anxiety Chronic anticoagulation Chronic atrial fibrillation, unspecified Hyperlipidemia Hyperlipidemia Hypothyroidism Type 2 diabetes mellitus Surgical History Surgical History No history of major surgery within 1 month Family History Family History Mother Arthritis Other Family history non-contributory Social History Social History Social History: Surrogate medical decision maker: Khari Kramer, son. Code status: Full code. Smoking status: Never smoker Second hand tobacco smoke exposure: No Alcohol intake: never Substance use: never Substance use type: does not use Lack of Transportation: No Lack of Food: Never True Current Housing: I Have Housing Concerned About Future Housing: No Difficulty Paying Gas/Electric Bills: No Difficulty Paying for Meds: No Currently Unemployed: No Education: Decline to Answer Difficulty w/ Childcare or Family Care: No Spiritual care concerns: No Meds Home Medications and Allergies Home Medications Medication Instructions Recorded Confirmed Type buspirone 15 mg tablet 15 mg PO TID 10/11/22 01/15/23 History rosuvastatin 10 mg tablet 10 mg PO HS 10/11/22 01/15/23 History insulin glargine 100 unit/mL 45 unit (0.45 mL) subcut HS 1 10/17/22 01/15/23 Rx subcutaneous solution (Lantus month #13.5 mL U-100 Insulin) tolnaftate 1 % topical powder 1 applic topical Q12HR 1 month #45 10/17/22 01/15/23 Rx grams amiodarone 200 mg tablet (Pacerone) 200 mg PO DAILY 1 month #120 tabs 11/14/22 01/15/23 Rx empagliflozin 10 mg tablet 10 mg PO DAILY #30 tabs 11/14/22 01/15/23 Rx (Jardiance) losartan 25 mg tablet 12.5 mg PO DAILY #30 tabs 11/14/22 01/15/23 Rx apixaban 5 mg tablet (Eliquis) 5 mg PO BID 01/15/23 01/15/23 History furosemide 40 mg tablet 40 mg PO E
[2023-01-16 17:00] LABS: Glucose Point of Care 158 mg/dl (65-105)
[2023-01-16 20:00] VITALS: BP 127/81; PULSE 44; RESP 14; TEMP 36.4; O2SAT 98
[2023-01-16] MEDS: ACETAMINOPHEN 325 MG TABLET 650 MG PO (20:39)
[2023-01-16 20:40] LABS: Glucose Point of Care 175 mg/dl (65-105)
[2023-01-16 21:01] VITALS: BP 113/72; BP 114/81; PULSE 119; PULSE 97; O2SAT 96; O2SAT 97
[2023-01-16 21:50] VITALS: BP 127/81; PULSE 95; RESP 14; TEMP 36.3; O2SAT 97
[2023-01-17] MEDS: HYDROcodone/acetaminophen (*CRX) 5-325 MG TABLET 1 TAB PO ×3 (00:21→15:51)
[2023-01-17 06:00] VITALS: BP 112/62; PULSE 71; RESP 13; TEMP 36.6; O2SAT 97
[2023-01-17] MEDS: LEVOTHYROXINE SODIUM 125 MCG TABLET PO (06:00)
[2023-01-17 07:49] LABS: Glucose Point of Care 96 mg/dl (65-105)
[2023-01-17 08:00] VITALS: BP 129/77
[2023-01-17] MEDS: busPIRone HCL 5 MG TABLET 15 MG PO ×3 (08:46→16:52)
[2023-01-17 08:47] VITALS: PULSE 88
[2023-01-17] MEDS: LIDOCAINE 5% PATCH 1 PATCH TRANSDERM (08:47)
[2023-01-17] MEDS: TOLNAFTATE 1% POWDER 45 GM BTL 1 APPLIC TOPICAL (08:47)
[2023-01-17] MEDS: AMIODARONE HCL 200 MG TABLET PO (08:47)
[2023-01-17] MEDS: LOSARTAN POTASSIUM 12.5 MG TABLET PO (08:47)
[2023-01-17] MEDS: APIXABAN 5 MG TABLET PO (08:47)
[2023-01-17] MEDS: EMPAGLIFLOZIN 10 MG TABLET PO (08:48)
[2023-01-17 11:21] LABS: Glucose Point of Care 146 mg/dl (65-105)
--- NOTE | 2023-01-17 12:32 | PM.IMPN ---
Progress Note: A&P Assessment and Plan (1) Closed fracture of lumbar vertebral body: Code(s): S32.009A - Unspecified fracture of unspecified lumbar vertebra, initial encounter for closed fracture Status: Acute Assessment and Plan: Appreciate neurosurgical evaluation. No brace needed at this time. Continue pain control. Awaiting placement in acute rehab if possible. (2) Acute kidney injury: Code(s): N17.9 - Acute kidney failure, unspecified Status: Acute Assessment and Plan: BMP pending. (3) Abnormal urinalysis: Code(s): R82.90 - Unspecified abnormal findings in urine Status: Acute (4) Chronic atrial fibrillation, unspecified: Code(s): I48.20 - Chronic atrial fibrillation, unspecified Status: Acute Assessment and Plan: Stable (5) Type 2 diabetes mellitus: Code(s): E11.9 - Type 2 diabetes mellitus without complications Status: Acute Assessment and Plan: Monitor blood sugar (6) Chronic anticoagulation: Code(s): Z79.01 - local intermodal truck driver (current) use of anticoagulants Status: Acute (7) Hypothyroidism: Code(s): E03.9 - Hypothyroidism, unspecified Status: Acute Subjective Date/time seen: 01/17/23 12:32 Interval history: Pain is minimal. Exam Const: Other: Well-developed female in the semi-Jacobs position in bed in no acute distress. She is in good spirits. Weight: 103.4 kg. BMI: 40.4. HENMT: Other: Normocephalic, atraumatic. Nares pain bilaterally. Oral mucosa moist. Eyes: Other: Pupils are reactive. Extraocular motions intact. Sclerae anicteric. Neck: Other: Supple. No midline vertebral tenderness. Resp: Other: Respirations are nonlabored and lungs are clear to auscultation. Cardio: Other: Irregularly irregular rate and rhythm. GI: Other: Abdomen is soft, obese, nontender, nondistended with positive bowel sounds. Back/Spine/Pelvis: Other: No midline vertebral tenderness. She is tender to palpation over the lumbar paraspinous muscles. No pain with leg raise though she is weak and is only able to raise her legs up a few inches and she let some fall quite quickly to gravity. Sensation intact throughout the lower extremities. Skin: Other: Warm and dry. Chronic hyperpigmentation of the lower legs bilaterally. Neuro: Other: Alert and oriented. Cranial nerves 2-12 are grossly intact. No gross focal deficits to casual conversation. Extrem: Other: No cyanosis or clubbing. Trace lower extremity edema bilaterally. Psych: Other: Pleasant and cooperative. Appropriate mood and affect. Objective Data Vital Signs Vital Signs: Vital Signs - 24 hr 01/16/23 14:10 01/16/23 20:00 01/16/23 20:00 Temperature 97.6 F 97.6 F Pulse Rate 86 44 L Respiratory Rate 16 14 Blood Pressure 112/62 127/81 Pulse Oximetry 95 98 Oxygen Delivery Room Air 01/16/23 21:01 01/16/23 21:01 01/16/23 21:50 Temperature 97.4 F L Pulse Rate 97 119 H 95 Respiratory Rate 14 Blood Pressure 113/72 114/81 127/81 Pulse Oximetry 97 96 97 Oxygen Delivery 01/17/23 06:00 01/17/23 08:47 Temperature 97.9 F Pulse Rate 71 88 Respiratory Rate 13 Blood Pressure 112/62 Pulse Oximetry 97 Oxygen Delivery Intake/Output Intake/Output: Intake & Output 01/14/23 01/15/23 01/16/23 01/17/23 23:59 23:59 23:59 23:59 Intake Total 740 1600 870 Output Total 1475 750 Balance 740 125 120 Meds/Results Medications: Active Medications Generic Name Dose Route Start Last Admin Trade Name Freq PRN Reason Stop Dose Admin Acetaminophen 650 mg 01/15/23 23:31 01/16/23 20:39 Acetaminophen 325 Mg Tablet PO 650 mg Q6H PRN Administration Mild Pain (1-3) or Fever Hydrocodone Bitart/Acetaminophen 1 tab 01/15/23 23:31 01/17/23 10:01 Hydrocodone/Acetaminophen (*Crx) 5-325 Mg Tablet PO 1 tab Q6H PRN Administ
[2023-01-17 13:57] LABS: Anion Gap 9 mmol/L (8-16); Blood Urea Nitrogen 32 mg/dL (7-17); Calcium 9.3 mg/dL (8.4-10.2); Carbon Dioxide 23 mmol/L (22-30); Chloride 104 mmol/L (98-107); Estimated CRCL calculation 44 ml/min; Estimated Glomerular Filt Rate 53; Glucose 177 mg/dL (65-110); Potassium 4.4 mmol/L (3.4-5.0); Sodium 136 mmol/L (137-145)
[2023-01-17 14:00] VITALS: BP 136/62; PULSE 89; RESP 19; TEMP 37.2; O2SAT 95
--- NOTE | 2023-01-17 14:56 | PM.DS ---
DS: Admitting Diagnosis Discharge Date 01/17/23 Admitting Diagnosis compression fracture DS: Discharge Diagnosis Discharge Diagnosis (1) Closed fracture of lumbar vertebral body: Code(s): S32.009A - Unspecified fracture of unspecified lumbar vertebra, initial encounter for closed fracture Status: Acute Assessment and Plan: Appreciate neurosurgical evaluation. No brace needed at this time. Continue pain control. Awaiting placement in acute rehab if possible. (2) Acute kidney injury: Code(s): N17.9 - Acute kidney failure, unspecified Status: Acute Assessment and Plan: BMP pending. (3) Abnormal urinalysis: Code(s): R82.90 - Unspecified abnormal findings in urine Status: Acute (4) Chronic atrial fibrillation, unspecified: Code(s): I48.20 - Chronic atrial fibrillation, unspecified Status: Acute Assessment and Plan: Stable (5) Type 2 diabetes mellitus: Code(s): E11.9 - Type 2 diabetes mellitus without complications Status: Acute Assessment and Plan: Monitor blood sugar (6) Chronic anticoagulation: Code(s): Z79.01 - nursing home (current) use of anticoagulants Status: Acute (7) Hypothyroidism: Code(s): E03.9 - Hypothyroidism, unspecified Status: Acute DS: Summary Hospital Course Hospital Course: Admitted with compresssion fracture and pain. Pain is minimal on dc. No brace needed per neurosurgery. Patient is going to be dc to acute rehab. Time Spent with Patient Time attestation: Total time spent providing and/or coordinating discharge services: Exam Const: Other: Well-developed female in the semi-Jacobs position in bed in no acute distress. She is in good spirits. Weight: 103.4 kg. BMI: 40.4. HENMT: Other: Normocephalic, atraumatic. Nares pain bilaterally. Oral mucosa moist. Eyes: Other: Pupils are reactive. Extraocular motions intact. Sclerae anicteric. Neck: Other: Supple. No midline vertebral tenderness. Resp: Other: Respirations are nonlabored and lungs are clear to auscultation. Cardio: Other: Irregularly irregular rate and rhythm. GI: Other: Abdomen is soft, obese, nontender, nondistended with positive bowel sounds. Back/Spine/Pelvis: Other: No midline vertebral tenderness. She is tender to palpation over the lumbar paraspinous muscles. No pain with leg raise though she is weak and is only able to raise her legs up a few inches and she let some fall quite quickly to gravity. Sensation intact throughout the lower extremities. Skin: Other: Warm and dry. Chronic hyperpigmentation of the lower legs bilaterally. Neuro: Other: Alert and oriented. Cranial nerves 2-12 are grossly intact. No gross focal deficits to casual conversation. Extrem: Other: No cyanosis or clubbing. Trace lower extremity edema bilaterally. Psych: Other: Pleasant and cooperative. Appropriate mood and affect. DS: Data Data Completed and Pending Labs on day of discharge: Labs from last 24 hours 01/17/23 01/17/23 01/17/23 13:17 11:13 07:38 Sodium 136 L Potassium 4.4 Chloride 104 Carbon Dioxide 23 Anion Gap 9 BUN 32 H Creatinine 1.00 Estim Creat Clear Calc 44 Estimated GFR 53 L Glucose 177 H POC Capillary Glucose 146 H 96 Calcium 9.3 01/16/23 01/16/23 20:18 16:50 Sodium Potassium Chloride Carbon Dioxide Anion Gap BUN Creatinine Estim Creat Clear Calc Estimated GFR Glucose POC Capillary Glucose 175 H 158 H Calcium Discharge Plan Discharge Attending physician on discharge: José Luis Balderas Consulting providers: Octavia Pacheco; Clif Pittman Discharging Clinician: José Luis Balderas Patient Disposition: Other Activity: as tolerated Diet: as tolerated Patient Instructions: Antibiotic Form Stand Alone Forms: Gener
--- NOTE | 2023-01-17 15:37 | PC.NURSE ---
called Dr. Balderas and he verified to discharge the patient with the morrow. Report called to [facility]. Patient is going to room #106
[2023-01-17 15:55] VITALS: BP 131/82; BP 151/84
[2023-01-17 17:05] LABS: Glucose Point of Care 144 mg/dl (65-105)
== END 2023-01-17 17:40 | disposition other institution (70) ==
LOC: ANHED 09:12 → ANH3MEDSUR 16:57
PROVIDERS: Physician Assistant; Admitting Provider Student in an Organized Health Care Education/Training Program; Emergency Provider Physician Assistant; PCP Internal Medicine; Visit Provider Chiropractor
DX: S32.019A Unspecified fracture of first lumbar vertebra, initial encounter for closed fracture (principal); N17.9 Acute kidney failure, unspecified; R82.90 Unspecified abnormal findings in urine; I48.20 Chronic atrial fibrillation, unspecified; E11.9 Type 2 diabetes mellitus without complications; E03.9 Hypothyroidism, unspecified; M47.816 Spondylosis without myelopathy or radiculopathy, lumbar region; B96.20 Unspecified Escherichia coli [E. coli] as the cause of diseases classified elsewhere; F41.9 Anxiety disorder, unspecified; I10 Essential (primary) hypertension; E78.5 Hyperlipidemia, unspecified; Z79.01 Long term (current) use of anticoagulants; Z79.4 Long term (current) use of insulin; Z79.899 Other long term (current) drug therapy
CPT/HCPCS: 36415; 71046; 72131; 76775; 80048; 80053; 81001; 82436; 82550; 82570; 82948; 83036; 83735; 84133; 84300; 84439; 84443; 84480; 84540; 85025; 85027; 85610; 85730; 87077; 87086; 87186; 96361; 96374; 96375; 96376; 97161; 97165; 97535; 99285; A9270; G0378; J1815; J2270; J2405; J7030; J7040

== ENCOUNTER 2023-03-02 03:41 | Inpatient (IN) | payer MEDICARE, SELFPAY ==
[2023-03-02] VITALS (20 sets, daily range): BP systolic 108–138; BP diastolic 63–91; PULSE 84–110; RESP 12–31; TEMP 36.2–36.8; O2SAT 90–100; BMI 45.2
--- NOTE | ~2023-03-02 | CT_ITS ---
EXAMINATION: CT lumbar spine wo con DATE: 03/02/2023 05:07 INDICATION: Low back pain. TECHNIQUE: Computed tomography (CT) of the lumbar spine was performed without intravenous contrast. A utomated exposure control and iterative reconstruction technique were employed. The dose-length produ ct was 1347.31 mGy-cm. COMPARISON: CT lumbar spine 01/15/2023, CT abdomen and pelvis 10/20/2022 FINDINGS: There are changes of cholecystectomy. There is calcified atherosclerosis of the aorta and m any of the other arteries. There is enlargement of right iliacus muscle. There is a 6.7 x 2.2 x 3.7 c m mass with fat stranding in right iliopsoas groove. These findings are consistent with hematoma. The re is 10 degrees dextroscoliosis of lumbar spine. There is a healing compression fracture of L1 with less than 1/5 loss of height. There is a burst fracture of L4 with 2/5 loss of height and retropulsio n of bone 4 mm into central spinal canal. There is moderately decreased disc height at L1-L2, severel y decreased disc height at L2-L3, mildly decreased disc height at L3-4, severely decreased disc heigh t at L4-L5, and moderately decreased disc height at L5-S1. 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 The followin g disc levels are specifically discussed: L1-L2: The disc is bulging. There is moderate right and severe left facet joint osteoarthritis. There is mild bilateral neural foraminal stenosis. There is mild central canal stenosis. L2-L3: The disc is bulging. There is severe bilateral facet joint osteoarthritis. There is moderate r ight and mild left neural foraminal stenosis. There is mild central canal stenosis. L3-L4: The disc is bulging. There is severe bilateral facet joint osteoarthritis. There is mild bilat eral neural foraminal stenosis. There is mild central canal stenosis. L4-L5: The disc is bulging. There is severe bilateral facet joint osteoarthritis. There is mild right and moderate left neural foraminal stenosis. There is mild central canal stenosis. L5-S1: The disc is bulging. There is severe bilateral facet joint osteoarthritis. There is moderate r ight and mild left neural foraminal stenosis. There is mild central canal stenosis. IMPRESSION: 1. L4 burst fracture, worsened from 01/15/23. 2. Healing subacute L1 compression fracture, stable from 01/15/2023. 3. Severe lumbar spondylosis. 4. Lumbar dextroscoliosis. 5. Hematoma in right involving right iliacus muscle and right iliopsoas groove, stable from 01/15/2023 and improved from 10/20/22. Reviewed, dictated and finalized at location A.
--- NOTE | ~2023-03-02 | MR_ITS ---
EXAMINATION: MR lumbar spine wo con DATE: 03/02/2023 10:53 INDICATION: Low back pain. L4 fracture. TECHNIQUE: Magnetic resonance imaging (MRI) of the lumbar spine was performed without intravenous con trast. COMPARISON: Lumbar spine CT 03/02/2023, 01/15/23, CT abdomen and pelvis 10/11/22 FINDINGS: Partially visualized is a chronic hematoma in right iliopsoas groove. There is 10 degrees d extroscoliosis of lumbar spine. There is a compression fracture of L1 with less than 1/5 loss of heig ht and edema-like marrow signal intensity. There is a burst fracture of L4 with 2/5 loss of height, r etropulsion of bone 4 mm into central spinal canal, and edema-like marrow signal intensity. There is a burst fracture of L5 with less than 1/5 loss of height, low signal fracture line, and edema-like ma rrow signal intensity. There is moderately decreased disc height at L1-L2, severely decreased disc he ight at L2-L3, mildly decreased disc height at L3-4, severely decreased disc height at L4-L5, and mod erately decreased disc height at L5-S1. There is a 3.4 cm cystic mass at S3 with peripheral area of n on-fluid signal intensity. The distal spinal cord signal intensity is normal. The conus medullaris is at L1. The following disc levels are specifically discussed: L1-L2: The disc is bulging. There is moderate right and severe left facet joint osteoarthritis. There is mild bilateral neural foraminal stenosis. There is mild central canal stenosis. L2-L3: The disc is bulging and has an annular fissure. There is severe bilateral facet joint osteoart hritis. There is moderate right and mild left neural foraminal stenosis. There is mild central canal stenosis. L3-L4: The disc is bulging and has an annular fissure. There is severe bilateral facet joint osteoart hritis. There is mild bilateral neural foraminal stenosis. There is mild central canal stenosis. L4-L5: The disc is bulging and has an annular fissure. There is severe bilateral facet joint osteoart hritis. There is mild bilateral neural foraminal stenosis. There is mild central canal stenosis. L5-S1: The disc is bulging. There is severe bilateral facet joint osteoarthritis. There is mild bilat eral neural foraminal stenosis. There is mild central canal stenosis. IMPRESSION: 1. Acute/subacute L4 burst fracture, worsened from 01/15/23. 2. Acute/subacute L5 burst fracture, new from 01/15/23. 3. Subacute L1 compression fracture, stable from 01/15/2023. 4. Severe lumbar spondylosis. 5. Lumbar dextroscoliosis. 6. 3.4 cm cystic mass at S3, stable from 10/11/22. The differential diagnosis includes Tarlov cyst wit h peripheral hematoma and neoplasm such as chordoma. Lumbar spine MRI without and with contrast is re commended. 7. Partially visualized chronic hematoma in right iliopsoas groove. Reviewed, dictated and finalized at location A. IMPRESSION: 1. Acute/subacute L4 burst fracture, worsened from 01/15/23. 2. Acute/subacute L5 burst fracture, new from 01/15/23. 3. Subacute L1 compression fracture, stable from 01/15/2023. 4. Severe lumbar spondylosis. 5. Lumbar dextroscoliosis. 6. 3.4 cm cystic mass at S3, stable from 10/11/22. The differential diagnosis in cludes Tarlov cyst with peripheral hematoma and neoplasm such as chordoma. Lumb ar spine MRI without and with contrast is recommended. 7. Partially visualized chronic hematoma in right iliopsoas groove.
--- NOTE | 2023-03-02 04:04 | ED.GENADULT ---
HPI - General Adult General Chief complaint: Back Pain/Injury Stated complaint: back problems Time Seen by Provider: 03/02/23 03:53 History of Present Illness HPI narrative: Patient 82-year-old female who presents the emergency department with chief complaint of low back pain. Patient reports that she has history of a fracture in her lumbar spine and reports that she was discharged home after being admitted for pain control patient states that over the last several days she has been having increasing pain and reports that it does radiate down into her left gluteal region patient reports that she has no paresthesias reports no loss of bowel or bladder control denies foot drop. Patient states that she is out of her narcotic pain medication that she was given for home but has not followed up with spine after her previous hospitalization. Related Data Home Medications Medication Instructions Recorded Confirmed buspirone 15 mg tablet 15 mg PO TID 10/11/22 01/17/23 rosuvastatin 10 mg tablet 10 mg PO HS 10/11/22 01/17/23 apixaban 5 mg tablet (Eliquis) 5 mg PO BID 01/15/23 01/17/23 furosemide 40 mg tablet 40 mg PO EVERY OTHER DAY 01/15/23 01/17/23 levothyroxine 125 mcg tablet 125 mcg PO DAILY 01/15/23 01/17/23 spironolactone 25 mg tablet 25 mg PO BID 01/15/23 01/17/23 Allergies Allergy/AdvReac Type Severity Reaction Status Date / Time No Known Allergies Allergy Verified 03/02/23 03:42 Review of Systems Review of Systems: A 10 system review of systems was completed on the patient and is negative except for what is stated in the HPI. Nursing and ancillary documentation was reviewed. [facility] Past Medical History Medical History Anxiety Chronic anticoagulation Chronic atrial fibrillation, unspecified Hyperlipidemia Hyperlipidemia Hypothyroidism Type 2 diabetes mellitus Surgical History Surgical History No history of major surgery within 1 month Family History Family History Mother Arthritis Other Family history non-contributory Social History Social History Social History: Surrogate medical decision maker: Khari Kramer, son. Code status: Full code. Smoking status: Never smoker Second hand tobacco smoke exposure: No Alcohol intake: never Substance use: never Substance use type: does not use Lack of Transportation: No Lack of Food: Never True Current Housing: I Have Housing Concerned About Future Housing: No Difficulty Paying Gas/Electric Bills: No Difficulty Paying for Meds: No Currently Unemployed: No Education: Decline to Answer Difficulty w/ Childcare or Family Care: No Spiritual care concerns: No Exam Narrative: GENERAL: Well-appearing, well-nourished, and in no acute distress. HEAD: Normocephalic, atraumatic. EYES: PERRLA and EOMI. ENT: Nares clear, no rhinorrhea or epistaxis. Mucous membranes moist. NECK: Supple. CHEST: Clear to auscultation. No respiratory distress. HEART: Regular rate and rhythm. No murmur heard. Normal peripheral pulses. ABDOMEN: Soft, nontender, nondistended, normal active bowel sounds. EXTREMITIES: Normal range of motion. No edema. SKIN: Warm, dry, no rash. NEURO: No focal deficits. Alert and oriented x3. PSYCH: Normal mood and affect. Course Vital Signs Vital signs: Vital Signs Temperature 36.6 C 03/02/23 03:45 Pulse Rate 94 03/02/23 03:45 Respiratory Rate 16 03/02/23 03:45 Blood Pressure 109/75 03/02/23 03:45 Pulse Oximetry 100 03/02/23 03:45 Temperature 36.6 C 03/02/23 03:45 Pulse Rate 97 03/02/23 06:42 Respiratory Rate 18 03/02/23 06:42 Blood Pressure 138/74 03/02/23 06:42 Pulse Oximetry 98 03/02/23 06:42 Medical Decision Making
[2023-03-02] MEDS: HYDROmorphone HCL INJ (*CRX) 1 MG/ML SYR IV PUSH ×3 (04:18→10:06)
[2023-03-02 04:32] LABS: Basophils Absolute Auto 0.1 K/mm3 (0.0-0.1); Basophils Percent Auto 0.5 % (0.2-1.2); Eosinophils Absolute Auto 0.2 K/mm3 (0-0.3); Eosinophils Percent Auto 1.7 % (0-4.4); Hemoglobin 13.8 g/dL (12.0-15.0); Immature Granulocyte Absolute 0.11 K/mm3 (0.00-0.031); Immature Granulocyte Percent A 0.9 % (0-0.5); Lymphocytes Absolute Auto 6.45 K/mm3 (0.9-3.2); Lymphocytes Percent Auto 53.7 % (18.3-44.2); Mean Corpuscular HGB Conc 32.9 g/dl (32-36); Mean Corpuscular Hemoglobin 36.1 pg (26-34); Mean Corpuscular Volume 109.9 fl (80-100); Mean Platelet Volume 8.8 fl (7.4-10.4); Monocytes Absolute Auto 0.6 K/mm3 (0.1-0.6); Monocytes Percent Auto 5.2 % (2.6-8.5); Neutrophils Absolute Auto 4.6 K/mm3 (1.3-6.7); Platelet Count Result 193 k/mm3 (150-375); Red Blood Count 3.82 M/mm3 (4.2-5.4); Red Cell Distribution Width 17.3 % (11.5-14.5)
[2023-03-02 04:43] LABS: Alanine Aminotransferase 13 U/L (6-35); Albumin Level 4.4 g/dL (3.5-5.1); Alkaline Phosphatase 168 U/L (38-126); Anion Gap 11 mmol/L (8-16); Aspartate Amino Transferase 24 U/L (14-36); Blood Urea Nitrogen 36 mg/dL (7-17); Calcium 9.5 mg/dL (8.4-10.2); Carbon Dioxide 20 mmol/L (22-30); Chloride 104 mmol/L (98-107); Estimated CRCL calculation 32 ml/min; Estimated Glomerular Filt Rate 33; Glucose 123 mg/dL (65-110); Potassium 4.3 mmol/L (3.4-5.0); Sodium 135 mmol/L (137-145)
[2023-03-02 05:21] LABS: Appearance Urine Cloudy (Clear); Bacteria Urine 4+ /hpf; Bilirubin Urine Negative (Negative); Blood Urine Negative (Negative); Color Urine Yellow (Yellow); Glucose Urine UA 3+ mg/dL (Negative); Ketones Urine Negative (Negative); Leukocyte Esterase Ur 2+ LEU/UL (Negative); Need Manual Microscopic Reviewed; Nitrate Urine Negative (Negative); Protein Urine Trace mg/dL (Negative); RBC Urine 0-2 /hpf (0-2); Specific Grav Ur 1.027 (1.001-1.035); Squamous Epithelial Cell Urine Few /hpf (Few); Urobilinogen Urine 0.2 mg/dL (<2.0); WBC Urine 21-50 /hpf
[2023-03-02 05:30] LABS: Add Urine Microscopic? YES
[2023-03-02] MEDS: fentaNYL CITRATE INJ (*CRX) 100 MCG/2 ML VIAL 50 MCG IV PUSH (06:42)
--- NOTE | 2023-03-02 07:05 | ECG_ITS ---
Measurements Intervals [place] Rate: 94 P: AL: 0 QRS: -29 QRSD: 95 T: 0 QT: 277 QTc: 348 Interpretive Statements ATRIAL FIBRILLATION BORDERLINE LEFT AXIS DEVIATION [QRS AXIS < -20] NONSPECIFIC ST & T-WAVE ABNORMALITY ABNORMAL RHYTHM ECG COMPARED TO ECG 11/09/2022 19:34:29 NO SIGNIFICANT CHANGE Electronically Signed On 03-02-2023 13:16:43 CDT by José Luis Hilton M.D.
--- NOTE | 2023-03-02 07:39 | PM.IMHP ---
H&P: HPI History of Present Illness Date/Time: 03/02/23 07:39 Chief Complaint: Low back pain Narrative: Patient 82-year-old female with history of AFib on Eliquis, hypertension, hyperlipidemia, hypothyroidism, type 2 diabetes, presented ED with a chief complaint of low back pain.? Patient has history of multiple radiculopathy of lumbar spine, and fracture in her lumbar spine and reports that she was discharged home on February 09 after being admitted for pain control patient states that over the last several days she has been having increasing pain and reports that it does radiate down into her left gluteal region patient reports that she has no paresthesias reports no loss of bowel or bladder control denies foot drop.? Patient states that she is out of her narcotic pain medication that she was given for home but has not followed up with spine after her previous hospitalization. In the ED, patient is off all have leukocytosis of 12,000, elevated BUN creatinine above baseline urine 36/cr 1.5, baseline creatinine 0.9 January 18 2023, UA shows cloudy urine with pyuria 4+ bacteria. CT scan of the lumbar spine showed a L4 burst fracture that is worsened from previous imaging.? Patient also did have a hematoma present in the musculature that is improved since October the L1 fracture has also improved. Patient denies headache, focal weakness, chest pain, shortness breast, abdomen pain, nausea vomiting diarrhea fever chills she has had multiple doses of Dilaudid and fentanyl in the ED, pain is not tolerable, we admit patient for further evaluation and management PMFSH Past Medical History Medical History Anxiety Chronic anticoagulation Chronic atrial fibrillation, unspecified Hyperlipidemia Hyperlipidemia Hypothyroidism Type 2 diabetes mellitus Surgical History Surgical History No history of major surgery within 1 month Family History Family History Mother Arthritis Other Family history non-contributory Social History Social History Social History: Surrogate medical decision maker: Khari Kramer, son. Code status: Full code. Smoking status: Never smoker Second hand tobacco smoke exposure: No Alcohol intake: never Substance use: never Substance use type: does not use Lack of Transportation: No Lack of Food: Never True Current Housing: I Have Housing Concerned About Future Housing: No Difficulty Paying Gas/Electric Bills: No Difficulty Paying for Meds: No Currently Unemployed: No Education: Decline to Answer Difficulty w/ Childcare or Family Care: No Spiritual care concerns: No Meds Home Medications and Allergies Home Medications Medication Instructions Recorded Confirmed Type buspirone 15 mg tablet 15 mg PO TID 10/11/22 03/02/23 History rosuvastatin 10 mg tablet 10 mg PO HS 10/11/22 03/02/23 History tolnaftate 1 % topical powder 1 applic topical Q12HR 1 month #45 10/17/22 03/02/23 Rx grams amiodarone 200 mg tablet (Pacerone) 200 mg PO DAILY 1 month #120 tabs 11/14/22 03/02/23 Rx empagliflozin 10 mg tablet 10 mg PO DAILY #30 tabs 11/14/22 03/02/23 Rx (Jardiance) losartan 25 mg tablet 12.5 mg PO DAILY #30 tabs 11/14/22 03/02/23 Rx apixaban 5 mg tablet (Eliquis) 5 mg PO BID 01/15/23 03/02/23 History furosemide 40 mg tablet 60 mg PO EVERY OTHER DAY 01/15/23 01/17/23 History levothyroxine 125 mcg tablet 125 mcg PO DAILY 01/15/23 03/02/23 History spironolactone 25 mg tablet 25 mg PO BID 01/15/23 03/02/23 History sennosides 8.6 mg-docusate sodium 1 tab-cap PO BID #30 tabs 01/29/23 03/02/23 Rx 50 mg tablet (Senokot-S) insulin glargine 100 unit/mL 15 unit subcut HS 03/02/23 03/02/23 History subcutaneous solution (Lantus U-100 Insulin) Allergi
--- NOTE | 2023-03-02 09:39 | ADMGEN ---
This patient, Damaris Kramer, was admitted to Medical Room 345-. Patient/family oriented to hospital policies and general routines including ID bracelet, bed and alarms, visiting hours, pain management, procedures, bathroom and other care routines, personal items, smoking policy, room service/diet, and visiting hours. Information on how to activate the Rapid Response Team has been discussed. Patient/Family are encouraged to report perceived risks to care and to ask questions if they do not understand what they are told or what they should do.
[2023-03-02 12:25] LABS: Glucose Point of Care 130 mg/dl (65-105)
--- NOTE | 2023-03-02 17:26 | WPDNEUROSGCN ---
Assessment and Plan Assessment and plan (1) Lumbar compression fracture: Code(s): S32.000A - Wedge compression fracture of unspecified lumbar vertebra, initial encounter for closed fracture Status: Acute Plan Ms. Kramer is an 82-year-old female with multiple medical comorbidities who presents with intractable back pain which has gradually worsened since initially presenting in early January with a L1 compression fracture. She denies any radicular pain or paresthesias and has been ambulatory. Imaging shows acute compression fractures at L4 with 33% loss of height and at L5 without measurable height loss. MRI does show some central stenosis at L3-4, although she does not seem to be symptomatic from this. She has received an LSO brace which she should wear when out of bed. She does not need it in bed unless it is more comfortable for her. She can be mobile and work with therapy. If she continues to have significant pain even in the brace, I would recommend pursuing kyphoplasty. Given her multiple compression fractures in a short interval without obvious trauma, I would also recommend that she be tested for osteoporosis so that she can start treatment if necessary to prevent further fractures. I will arrange for follow up in 6 weeks in clinic. Consult date: 03/02/23 Reason for consult: lumbar fractures HPI: Damaris Kramer is a 82 year old female with history of AFib on Eliquis, hypertension, hyperlipidemia, hypothyroidism, type 2 diabetes who presented to the ER overnight with intractable back pain. In early January, she was found to have a fracture at L1 for which Dr. Pittman saw her. He suggested a brace for pain control if needed, but the patient never received one. She was discharged to rehab and has since returned home with her son. She has had continued lower back pain since her initial presentation which has gradually worsened to the point of being intolerable last night. She denies radicular pain or paresthesias in the legs. She was ambulatory to the bathroom with assistance until yesterday. She is voiding without difficulty. She received a brace earlier today but has not been out of bed since admission. She denies any traumatic injuries or a known history of osteoporosis. Review of Systems Review of Systems: All systems reviewed & are unremarkable except as noted in HPI and below PMFSH Past Medical History Medical History Anxiety Chronic anticoagulation Chronic atrial fibrillation, unspecified Hyperlipidemia Hyperlipidemia Hypothyroidism Type 2 diabetes mellitus Surgical History Surgical History No history of major surgery within 1 month Family History Family History Mother Arthritis Other Family history non-contributory Social History Social History Social History: Surrogate medical decision maker: Khari Kramer, son. Code status: Full code. Smoking status: Never smoker Second hand tobacco smoke exposure: No Alcohol intake: never Substance use: never Substance use type: does not use Lack of Transportation: No Lack of Food: Never True Current Housing: I Have Housing Concerned About Future Housing: No Difficulty Paying Gas/Electric Bills: No Difficulty Paying for Meds: No Currently Unemployed: No Education: Decline to Answer Difficulty w/ Childcare or Family Care: No Spiritual care concerns: No Meds Home Medications and Allergies Home Medications Medication Instructions Recorded Confirmed Type buspirone 15 mg tablet 15 mg PO TID 10/11/22 03/02/23 History rosuvastatin 10 mg tablet 10 mg PO HS 10/11/22 03/02/23 History tolnaftate 1 % topical powder 1 applic topical Q12HR 1 month #45 10/17/22 03/02/23 Rx grams amiodarone 200 mg ta
[2023-03-02 17:44] LABS: Glucose Point of Care 145 mg/dl (65-105)
[2023-03-02] MEDS: TOLNAFTATE 1% POWDER 45 GM BTL 1 APPLIC TOPICAL ×2 (17:44→21:21)
[2023-03-02] MEDS: polyethylene glycoL 3350 17 GM POWD.PACK PO (17:44)
[2023-03-02] MEDS: LIDOCAINE 5% PATCH 1 PATCH TRANSDERM (17:45)
[2023-03-02] MEDS: HYDROcodone/acetaminophen (*CRX) 5-325 MG TABLET 1 TAB PO (21:25)
[2023-03-02 21:40] LABS: Glucose Point of Care 189 mg/dl (65-105)
[2023-03-03] VITALS (9 sets, daily range): BP systolic 106–131; BP diastolic 64–85; PULSE 82–120; RESP 16–20; TEMP 36.1–36.5; O2SAT 95–98
[2023-03-03] MEDS: HYDROmorphone HCL INJ (*CRX) 1 MG/ML SYR IV PUSH ×3 (00:34→21:27)
[2023-03-03 05:58] LABS: Glucose Point of Care 143 mg/dl (65-105)
[2023-03-03] MEDS: polyethylene glycoL 3350 17 GM POWD.PACK PO (08:24)
[2023-03-03] MEDS: ENOXAPARIN 40 MG/0.4 ML SYRINGE SUB-Q (08:30)
[2023-03-03] MEDS: LIDOCAINE 5% PATCH 1 PATCH TRANSDERM (08:30)
[2023-03-03] MEDS: TOLNAFTATE 1% POWDER 45 GM BTL 1 APPLIC TOPICAL ×2 (08:30→21:27)
[2023-03-03 08:36] LABS: Glucose Point of Care 160 mg/dl (65-105)
--- NOTE | 2023-03-03 08:41 | PM.IMPN ---
Progress Note: A&P Assessment and Plan (1) Acute UTI: Code(s): N39.0 - Urinary tract infection, site not specified Status: Acute (2) Intractable back pain: Code(s): M54.9 - Dorsalgia, unspecified Status: Acute (3) Atrial fibrillation: Code(s): I48.91 - Unspecified atrial fibrillation Status: Acute (4) Hypertension: Code(s): I10 - Essential (primary) hypertension Status: Chronic (5) Closed fracture of lumbar vertebral body: Code(s): S32.009A - Unspecified fracture of unspecified lumbar vertebra, initial encounter for closed fracture Status: Acute (6) Acute kidney injury: Code(s): N17.9 - Acute kidney failure, unspecified Status: Acute (7) Type 2 diabetes mellitus: Code(s): E11.9 - Type 2 diabetes mellitus without complications Status: Acute (8) Hypothyroidism: Code(s): E03.9 - Hypothyroidism, unspecified Status: Acute Plan Intractable low back pain Likely related to have a vertebral fracture and hematoma Patient has no focal weakness, no urine or fecal incontinence CT scan of the lumbar spine showed a L4 burst fracture that is worsened from previous imaging.? Patient also did have a hematoma present in the musculature that is improved since October the L1 fracture has also improved. Optimize pain management lumbar spine MRI, patient may benefit from with lumbar vertebrae kyphoplasty MRI reports For?Acute/subacute L4 burst fracture, worsened from 01/15/23. 2. Acute/subacute L5 burst fracture, new from 01/15/23. 3. Subacute L1 compression fracture, stable from 01/15/2023. 4. Severe lumbar spondylosis. 5. Lumbar dextroscoliosis. 6. 3.4 cm cystic mass at S3, stable from 10/11/22. The differential diagnosis includes Tarlov cyst with peripheral hematoma and neoplasm such as chordoma. Lumbar spine MRI without and with contrast is recommended. consults neurosurgeon for evaluation and treatments Patient has a normal calcium phosphate level, alk-phos marginally high, f/u TSH Vit D,, parathyroid home Appreciate neurosurgeons consultation. brace is provided. Acute UTI Patient has leukocytosis, UA shows pyuria, Start ceftriaxone, follow-up urine culture Chronic atrial fibrillation Chronic patient has AFib heart rate control 94 Continue amiodarone 200 mg daily p.o. Hold Eliquis p.o. because of hematoma and possible surgical procedure for the lumbar vertebrae fracture MARTIN on CKD Possible prerenal Start normal saline IV Hold furosemide Avoid nephrotoxic medication Type 2 diabetes Continue Lantus 20 unit q.h.s. Start insulin sliding scale a.c. q.h.s. Hold oral medications Acquired hypothyroidism Continue Synthroid 125 mcg daily p.o. Hypertension Continue losartan 12.5 mg b.i.d. p.o. Hyperlipidemia Continue Crestor 10 mg daily p.o. Chronic systolic heart failure EF 40-45% are echocardiogram September 2022 Compensated Hold furosemide and spironolactone because of acute renal failure Subjective Date/time seen: 03/03/23 08:41 Interval history: I saw exam patient today, patient still has a tenderness of lower back, pain is tolerable in bed. Patient denies focal weakness, urinary fecal incontinence. Patient denies chest pain, shortness of breath Exam Narrative: GENERAL: Pleasant, in no acute distress. Well-nourished. - EYES: EOMI. Anicteric. - HENT: Moist mucous membranes. - LUNGS: Clear to auscultation bilaterally, no wheezing, rhonchi, or rales. - CARDIOVASCULAR: Regular rate and rhythm. No murmur. No JVD. - ABDOMEN: Soft, has suprapubic-tender and non-distended. No palpable masses. - EXTREMITIES: No edema. Peripheral pulses 2+. Non-tender. - NEUROLOGIC: Tenderness of lumbar spine, no focal neurological deficits. CN II-XII grossly intact. - PSYCHIATRIC: Awake, Alert and oriented x 3. Appropriate mood and affect. - SKIN: No rashes or lesions. Warm. - LYMPH: No cervical lymphadenopathy. Objective
[2023-03-03 09:01] LABS: Basophils Percent Auto 0.3 % (0.2-1.2); Eosinophils Absolute Auto 0.1 K/mm3 (0-0.3); Eosinophils Percent Auto 1.5 % (0-4.4); Hematocrit 39.6 % (37.0-47.0); Hemoglobin 12.8 g/dL (12.0-15.0); Immature Granulocyte Absolute 0.09 K/mm3 (0.00-0.031); Lymphocytes Absolute Auto 4.38 K/mm3 (0.9-3.2); Lymphocytes Percent Auto 47.2 % (18.3-44.2); Mean Corpuscular HGB Conc 32.3 g/dl (32-36); Mean Corpuscular Hemoglobin 36.2 pg (26-34); Mean Corpuscular Volume 111.9 fl (80-100); Mean Platelet Volume 8.8 fl (7.4-10.4); Monocytes Absolute Auto 0.4 K/mm3 (0.1-0.6); Monocytes Percent Auto 4.5 % (2.6-8.5); Neutrophils Absolute Auto 4.2 K/mm3 (1.3-6.7); Neutrophils Percent Auto 45.5 % (45.5-73.1); Platelet Count Result 179 k/mm3 (150-375); Red Blood Count 3.54 M/mm3 (4.2-5.4); Red Cell Distribution Width 17.2 % (11.5-14.5); White Blood Count 9.3 K/mm3 (4.5-10.0)
[2023-03-03 09:10] LABS: Anion Gap 5 mmol/L (8-16); Blood Urea Nitrogen 26 mg/dL (7-17); Calcium 9.1 mg/dL (8.4-10.2); Carbon Dioxide 22 mmol/L (22-30); Chloride 107 mmol/L (98-107); Estimated CRCL calculation 47 ml/min; Estimated Glomerular Filt Rate 53; Glucose 156 mg/dL (65-110); Potassium 4.1 mmol/L (3.4-5.0); Sodium 134 mmol/L (137-145)
[2023-03-03 09:26] LABS: Anisocytosis 1+ (NORMAL); Platelet Estimate Adequate (Adequate); Schistocytes None Seen (NORMAL); Smudge Cells FEW
[2023-03-03] MEDS: SENNA/DOCUSATE SODIUM TABLET 1 TAB PO ×2 (10:02→17:20)
[2023-03-03] MEDS: HYDROcodone/acetaminophen (*CRX) 5-325 MG TABLET 1 TAB PO ×2 (10:02→15:36)
[2023-03-03 12:02] LABS: Glucose Point of Care 175 mg/dl (65-105)
[2023-03-03] MEDS: CYCLOBENZAPRINE HCL 5 MG TABLET PO (13:17)
[2023-03-03 17:34] LABS: Glucose Point of Care 167 mg/dl (65-105)
[2023-03-03 20:42] LABS: Glucose Point of Care 182 mg/dl (65-105)
[2023-03-04] VITALS (10 sets, daily range): BP systolic 85–123; BP diastolic 52–83; PULSE 77–106; RESP 16–20; TEMP 35.9–36.7; O2SAT 100
[2023-03-04] MEDS: HYDROcodone/acetaminophen (*CRX) 5-325 MG TABLET 1 TAB PO ×2 (00:37→11:30)
[2023-03-04] MEDS: HYDROmorphone HCL INJ (*CRX) 1 MG/ML SYR IV PUSH ×3 (06:05→23:16)
[2023-03-04 06:22] LABS: Glucose Point of Care 143 mg/dl (65-105)
[2023-03-04 07:43] LABS: Basophils Percent Auto 0.3 % (0.2-1.2); Eosinophils Absolute Auto 0.2 K/mm3 (0-0.3); Eosinophils Percent Auto 1.9 % (0-4.4); Hematocrit 38.5 % (37.0-47.0); Hemoglobin 12.3 g/dL (12.0-15.0); Immature Granulocyte Absolute 0.15 K/mm3 (0.00-0.031); Immature Granulocyte Percent A 1.9 % (0-0.5); Lymphocytes Absolute Auto 3.59 K/mm3 (0.9-3.2); Lymphocytes Percent Auto 46.4 % (18.3-44.2); Mean Corpuscular HGB Conc 31.9 g/dl (32-36); Mean Corpuscular Hemoglobin 36.1 pg (26-34); Mean Corpuscular Volume 112.9 fl (80-100); Mean Platelet Volume 8.8 fl (7.4-10.4); Monocytes Absolute Auto 0.5 K/mm3 (0.1-0.6); Monocytes Percent Auto 6.2 % (2.6-8.5); Neutrophils Absolute Auto 3.4 K/mm3 (1.3-6.7); Neutrophils Percent Auto 43.3 % (45.5-73.1); Platelet Count Result 163 k/mm3 (150-375); Red Blood Count 3.41 M/mm3 (4.2-5.4); Red Cell Distribution Width 17.2 % (11.5-14.5); White Blood Count 7.7 K/mm3 (4.5-10.0)
[2023-03-04 07:51] LABS: Anion Gap 3 mmol/L (8-16); Blood Urea Nitrogen 25 mg/dL (7-17); Carbon Dioxide 24 mmol/L (22-30); Chloride 105 mmol/L (98-107); Estimated CRCL calculation 43 ml/min; Estimated Glomerular Filt Rate 48; Glucose 135 mg/dL (65-110); Potassium 4.4 mmol/L (3.4-5.0); Sodium 132 mmol/L (137-145)
[2023-03-04 08:21] LABS: Glucose Point of Care 141 mg/dl (65-105)
[2023-03-04 08:25] LABS: Anisocytosis 1+ (NORMAL); Macrocytosis 2+ (NORMAL); Platelet Estimate Adequate (Adequate); Schistocytes None Seen (NORMAL)
[2023-03-04] MEDS: ENOXAPARIN 40 MG/0.4 ML SYRINGE SUB-Q (09:05)
[2023-03-04] MEDS: LIDOCAINE 5% PATCH 1 PATCH TRANSDERM (09:05)
[2023-03-04] MEDS: SENNA/DOCUSATE SODIUM TABLET 1 TAB PO ×2 (09:05→17:25)
[2023-03-04] MEDS: TOLNAFTATE 1% POWDER 45 GM BTL 1 APPLIC TOPICAL ×2 (09:08→20:34)
[2023-03-04] MEDS: CYCLOBENZAPRINE HCL 5 MG TABLET PO (11:31)
[2023-03-04 12:07] LABS: Glucose Point of Care 178 mg/dl (65-105)
--- NOTE | 2023-03-04 13:27 | PM.IMPN ---
Progress Note: A&P Assessment and Plan (1) Acute UTI: Code(s): N39.0 - Urinary tract infection, site not specified Status: Acute (2) Intractable back pain: Code(s): M54.9 - Dorsalgia, unspecified Status: Acute (3) Atrial fibrillation: Code(s): I48.91 - Unspecified atrial fibrillation Status: Acute (4) Hypertension: Code(s): I10 - Essential (primary) hypertension Status: Chronic (5) Closed fracture of lumbar vertebral body: Code(s): S32.009A - Unspecified fracture of unspecified lumbar vertebra, initial encounter for closed fracture Status: Acute (6) Acute kidney injury: Code(s): N17.9 - Acute kidney failure, unspecified Status: Acute (7) Type 2 diabetes mellitus: Code(s): E11.9 - Type 2 diabetes mellitus without complications Status: Acute (8) Hypothyroidism: Code(s): E03.9 - Hypothyroidism, unspecified Status: Acute Plan Intractable low back pain Likely related to have a vertebral fracture and hematoma Patient has no focal weakness, no urine or fecal incontinence CT scan of the lumbar spine showed a L4 burst fracture that is worsened from previous imaging.? Patient also did have a hematoma present in the musculature that is improved since October the L1 fracture has also improved. Optimize pain management lumbar spine MRI, patient may benefit from with lumbar vertebrae kyphoplasty MRI reports For?Acute/subacute L4 burst fracture, worsened from 01/15/23. 2. Acute/subacute L5 burst fracture, new from 01/15/23. 3. Subacute L1 compression fracture, stable from 01/15/2023. 4. Severe lumbar spondylosis. 5. Lumbar dextroscoliosis. 6. 3.4 cm cystic mass at S3, stable from 10/11/22. The differential diagnosis includes Tarlov cyst with peripheral hematoma and neoplasm such as chordoma. Lumbar spine MRI without and with contrast is recommended. consults neurosurgeon for evaluation and treatments Patient has a normal calcium phosphate level, alk-phos marginally high, f/u Vit D peding , parathyroid hormone marginally high, 57.0, normal upper margin is 57.5 Appreciate neurosurgeons consultation. brace is provided. Patient still has severe low back pain on the brace. Patient will accept surgical treatment if that can improve the pain. Acute UTI Patient has leukocytosis, UA shows pyuria, Start ceftriaxone, follow-up urine culture Chronic atrial fibrillation Chronic patient has AFib heart rate control 94 Continue amiodarone 200 mg daily p.o. Hold Eliquis p.o. because of hematoma and possible surgical procedure for the lumbar vertebrae fracture MARTIN on CKD Possible prerenal Start normal saline IV Hold furosemide Avoid nephrotoxic medication Type 2 diabetes Continue Lantus 20 unit q.h.s. Start insulin sliding scale a.c. q.h.s. Hold oral medications Acquired hypothyroidism Continue Synthroid 125 mcg daily p.o. tsh 12.9 follow free T4 Hypertension Continue losartan 12.5 mg b.i.d. p.o. Hyperlipidemia Continue Crestor 10 mg daily p.o. Chronic systolic heart failure EF 40-45% are echocardiogram September 2022 Compensated Hold furosemide and spironolactone because of acute renal failure Subjective Date/time seen: 03/04/23 13:27 Interval history: I saw exam patient today, patient still has severe pain of lower back, patient is on the brace. Patient denies focal weakness, urinary fecal incontinence. Patient denies chest pain, shortness of breath Exam Narrative: GENERAL: Pleasant, in no acute distress. Well-nourished. - EYES: EOMI. Anicteric. - HENT: Moist mucous membranes. - LUNGS: Clear to auscultation bilaterally, no wheezing, rhonchi, or rales. - CARDIOVASCULAR: Regular rate and rhythm. No murmur. No JVD. - ABDOMEN: Soft, has suprapubic-tender and non-distended. No palpable masses. - EXTREMITIES: No edema. Peripheral pulses 2+. Non-tender. - NEUROLOGIC: Tenderness of lumbar spine, no focal neurologica
[2023-03-04 14:50] LABS: Free T4 Free Thyroxine 1.31 ng/mL (0.78-2.19)
[2023-03-04 17:18] LABS: Glucose Point of Care 142 mg/dl (65-105)
[2023-03-04 20:07] LABS: Glucose Point of Care 258 mg/dl (65-105)
[2023-03-04] MEDS: INSULIN ASPART (*BKC) 100 UNITS/ML SUB-Q (20:33)
[2023-03-05] VITALS: PULSE 83
[2023-03-05 04:00] VITALS: PULSE 78
[2023-03-05 04:44] VITALS: BP 94/59; PULSE 88; RESP 20; O2SAT 100
[2023-03-05] MEDS: HYDROmorphone HCL INJ (*CRX) 1 MG/ML SYR IV PUSH ×2 (05:33→12:17)
[2023-03-05 07:28] LABS: Basophils Percent Auto 0.4 % (0.2-1.2); Eosinophils Absolute Auto 0.2 K/mm3 (0-0.3); Eosinophils Percent Auto 1.6 % (0-4.4); Hematocrit 39.2 % (37.0-47.0); Hemoglobin 12.6 g/dL (12.0-15.0); Immature Granulocyte Absolute 0.13 K/mm3 (0.00-0.031); Immature Granulocyte Percent A 1.4 % (0-0.5); Lymphocytes Absolute Auto 4.79 K/mm3 (0.9-3.2); Lymphocytes Percent Auto 51.8 % (18.3-44.2); Mean Corpuscular HGB Conc 32.1 g/dl (32-36); Mean Corpuscular Hemoglobin 36.2 pg (26-34); Mean Corpuscular Volume 112.6 fl (80-100); Mean Platelet Volume 8.8 fl (7.4-10.4); Monocytes Absolute Auto 0.5 K/mm3 (0.1-0.6); Monocytes Percent Auto 5.7 % (2.6-8.5); Neutrophils Absolute Auto 3.6 K/mm3 (1.3-6.7); Neutrophils Percent Auto 39.1 % (45.5-73.1); Platelet Count Result 183 k/mm3 (150-375); Red Blood Count 3.48 M/mm3 (4.2-5.4); Red Cell Distribution Width 17.3 % (11.5-14.5); White Blood Count 9.2 K/mm3 (4.5-10.0)
[2023-03-05 07:37] LABS: Anion Gap 4 mmol/L (8-16); Blood Urea Nitrogen 21 mg/dL (7-17); Calcium 9.3 mg/dL (8.4-10.2); Carbon Dioxide 24 mmol/L (22-30); Chloride 104 mmol/L (98-107); Estimated CRCL calculation 52 ml/min; Estimated Glomerular Filt Rate 60; Glucose 146 mg/dL (65-110); Sodium 132 mmol/L (137-145)
[2023-03-05 07:51] LABS: Anisocytosis 1+ (NORMAL); Macrocytosis 1+ (NORMAL); Platelet Estimate Adequate (Adequate); Schistocytes None Seen (NORMAL)
[2023-03-05 08:35] LABS: Glucose Point of Care 143 mg/dl (65-105)
[2023-03-05] MEDS: SENNA/DOCUSATE SODIUM TABLET 1 TAB PO (09:09)
[2023-03-05] MEDS: ENOXAPARIN 40 MG/0.4 ML SYRINGE SUB-Q (09:09)
[2023-03-05] MEDS: LIDOCAINE 5% PATCH 1 PATCH TRANSDERM (09:10)
[2023-03-05] MEDS: TOLNAFTATE 1% POWDER 45 GM BTL 1 APPLIC TOPICAL (09:10)
[2023-03-05] MEDS: fentaNYL (*CRX) 50 MCG PATCH TRANSDERM (11:06)
[2023-03-05 12:13] LABS: Glucose Point of Care 167 mg/dl (65-105)
--- NOTE | 2023-03-05 13:22 | PM.DS ---
DS: Admitting Diagnosis Discharge Date today Admitting Diagnosis (1) Acute UTI: ?Code(s): N39.0 - Urinary tract infection, site not specified ?Status:?Acute (2) Intractable back pain: ?Code(s): M54.9 - Dorsalgia, unspecified ?Status:?Acute (3) Atrial fibrillation: ?Code(s): I48.91 - Unspecified atrial fibrillation ?Status:?Acute (4) Hypertension: ?Code(s): I10 - Essential (primary) hypertension ?Status:?Chronic (5) Closed fracture of lumbar vertebral body: ?Code(s): S32.009A - Unspecified fracture of unspecified lumbar vertebra, initial encounter for closed fracture ?Status:?Acute (6) Acute kidney injury: ?Code(s): N17.9 - Acute kidney failure, unspecified ?Status:?Acute (7) Type 2 diabetes mellitus: ?Code(s): E11.9 - Type 2 diabetes mellitus without complications ?Status:?Acute (8) Hypothyroidism: ?Code(s): E03.9 - Hypothyroidism, unspecified ?Status:?Acute DS: Discharge Diagnosis Discharge Diagnosis (1) Acute UTI: Code(s): N39.0 - Urinary tract infection, site not specified Status: Acute (2) Intractable back pain: Code(s): M54.9 - Dorsalgia, unspecified Status: Acute (3) Atrial fibrillation: Code(s): I48.91 - Unspecified atrial fibrillation Status: Acute (4) Hypertension: Code(s): I10 - Essential (primary) hypertension Status: Chronic (5) Closed fracture of lumbar vertebral body: Code(s): S32.009A - Unspecified fracture of unspecified lumbar vertebra, initial encounter for closed fracture Status: Acute (6) Acute kidney injury: Code(s): N17.9 - Acute kidney failure, unspecified Status: Acute (7) Type 2 diabetes mellitus: Code(s): E11.9 - Type 2 diabetes mellitus without complications Status: Acute (8) Hypothyroidism: Code(s): E03.9 - Hypothyroidism, unspecified Status: Acute DS: Summary Hospital Course Reason for hospitalization: back pain Hospital Course: Patient 82-year-old female with history of AFib on Eliquis, hypertension, hyperlipidemia, hypothyroidism, type 2 diabetes, presented ED with a chief complaint of? low back pain.? Patient has history of multiple radiculopathy of lumbar spine, and fracture in her lumbar spine and reports that she was discharged home on February 09 after being admitted for pain control ? patient states that over the last several days she has been having increasing pain and reports that it does radiate down into her left gluteal region patient reports that she has no paresthesias reports no loss of bowel or bladder control denies foot drop.? Patient states that she is out of her narcotic pain medication that she was given for home but has not followed up with spine after her previous hospitalization.? In the ED, patient is off all have leukocytosis of 12,000,? elevated BUN creatinine above baseline urine 36/cr 1.5, baseline creatinine 0.9 January 18 2023, UA shows cloudy urine with pyuria 4+ bacteria.? CT scan of the lumbar spine showed a L4 burst fracture that is worsened from previous imaging.? Patient also did have a hematoma present in the musculature that is improved since October the L1 fracture has also improved.? Patient denies headache, focal weakness, chest pain, shortness breast, abdomen pain, nausea vomiting diarrhea? fever chills she has had multiple doses of Dilaudid and fentanyl in the ED, pain is not tolerable, we admit patient for further evaluation and management During hospitalization, following medical issues have been addressed in the hospital Intractable low back pain Likely related to have a vertebral fracture and hematoma Patient has no focal weakness, no urine or fecal incontinence CT scan of the lumbar spine showed a L4 burst fracture that is worsened from previous imaging.? Patient also did have a hematoma present in the musculature that is improved since October the L1 fracture has also im
[2023-03-08 10:41] LABS: Vitamin D 1,25 (OH)2 Total 22 pg/mL (18-72); Vitamin D2 1,25 (OH)2 <8 pg/mL; Vitamin D3 1,25 (OH)2 22 pg/mL
== END 2023-03-05 14:14 | disposition home or self-care (01) | DRG 552 ==
LOC: ANHED 06:30 → ANH3MED 08:43
PROVIDERS: Admitting Provider Internal Medicine; Emergency Provider Emergency Medicine; PCP Internal Medicine; Visit Provider Hospitalist
DX: S32.051A Stable burst fracture of fifth lumbar vertebra, initial encounter for closed fracture (principal); N39.0 Urinary tract infection, site not specified; N17.9 Acute kidney failure, unspecified; I48.20 Chronic atrial fibrillation, unspecified; I50.22 Chronic systolic (congestive) heart failure; I13.0 Hypertensive heart and chronic kidney disease with heart failure and stage 1 through stage 4 chronic kidney disease, or unspecified chronic kidney disease; S32.019A Unspecified fracture of first lumbar vertebra, initial encounter for closed fracture; S32.041A Stable burst fracture of fourth lumbar vertebra, initial encounter for closed fracture; B96.20 Unspecified Escherichia coli [E. coli] as the cause of diseases classified elsewhere; S30.1XXA Contusion of abdominal wall, initial encounter; X58.XXXA Exposure to other specified factors, initial encounter; M54.16 Radiculopathy, lumbar region; E11.22 Type 2 diabetes mellitus with diabetic chronic kidney disease; N18.9 Chronic kidney disease, unspecified; E03.9 Hypothyroidism, unspecified; M54.9 Dorsalgia, unspecified; E78.5 Hyperlipidemia, unspecified; F41.9 Anxiety disorder, unspecified; D72.829 Elevated white blood cell count, unspecified; Z79.01 Long term (current) use of anticoagulants
CPT/HCPCS: 36415; 72131; 72148; 80048; 80053; 81001; 82652; 82948; 83970; 84439; 85025; 87077; 87086; 87186; 93005; 96374; 96375; 96376; 97110; 97116; 97162; 97166; 97530; 97535; 99285; A9270; J0696; J1170; J1650; J1815; J3010

== ENCOUNTER 2023-03-12 06:17 | Inpatient (IN) | payer MEDICARE, SELFPAY ==
[2023-03-12] VITALS (26 sets, daily range): BP systolic 93–127; BP diastolic 54–75; PULSE 81–105; RESP 14–22; TEMP 36.1–37; O2SAT 88–100; BMI 40.1
--- NOTE | ~2023-03-12 | CT_ITS ---
EXAMINATION: CT abdomen pelvis wo con DATE: 03/13/2023 14:34 INDICATION: Left flank pain. TECHNIQUE: Computed tomography (CT) of the abdomen and pelvis was performed without intravenous contr ast. Automated exposure control and iterative reconstruction technique were employed. The dose-length product was 1407.95 mGy-cm. COMPARISON: CT abdomen and pelvis 10/20/2022, chest CT 10/11/2022 FINDINGS: The visualized portions of the lung bases demonstrate mild bronchiectasis and mild atelecta sis. There is a 6 mm nodule in right middle lobe. No pleural effusion. There is left atrial enlargeme nt of the heart. There are coronary artery calcifications. No pericardial effusion. There is a small sliding hiatal hernia. The liver is normal. There are changes of cholecystectomy. The spleen, pancrea s, and adrenal glands are normal. There are diverticula of the duodenum. There is cortical thinning o f the kidneys. There are cysts in the kidneys measuring up to 2.3 cm on the right. There is no urolit hiasis. There is gas in the bladder lumen. There are bilateral inguinal hernias containing fat. There is diverticulosis of the colon without evidence of diverticulitis. The appendix is not visualized. T here are changes of ventral hernia repair. There is a 5.0 x 3.0 cm mass with lobulated and irregular margin with surrounding fat stranding in right iliopsoas groove, consistent with hematoma with improv ement from 10/20/22. There is calcified atherosclerosis of the aorta and many of the other arteries. Th ere are bridging endplate osteophytes at multiple levels in the spine, consistent with diffuse idiopa thic skeletal hyperostosis (DISH). There is a healing compression fracture of L1. There is severe lum bar spondylosis. There are changes of vertebroplasty in L3, L4, and L5. There is moderate osteoarthri tis of the hips. IMPRESSION: 1. No urolithiasis. 2. Gas in the bladder lumen, which may be from recent instrumentation. 3. New 6 mm pulmonary nodule, probably benign. Noncontrast low-dose chest CT is recommended in 6-12 m onths. 4. Mass in right iliopsoas groove with improvement from 10/20/22, consistent with hematoma. Reviewed, dictated and finalized at [facility]. IMPRESSION: 1. No urolithiasis. 2. Gas in the bladder lumen, which may be from recent instrumentation. 3. New 6 mm pulmonary nodule, probably benign. Noncontrast low-dose chest CT is recommended in 6-12 months. 4. Mass in right iliopsoas groove with improvement from 10/20/22, consistent with hematoma.
--- NOTE | ~2023-03-12 | CT_ITS ---
EXAMINATION: CT lumbar spine wo con DATE: 03/12/2023 08:59 INDICATION: Intractable low back pain TECHNIQUE: Computed tomography (CT) of the lumbar spine was performed without intravenous contrast. A utomated exposure control and iterative reconstruction technique were employed. Exam dose: 1391.92 m Gy-cm total exam DLP. COMPARISON: 03/02/2023 CT lumbar spine FINDINGS: There is diffuse osteopenia. Stable likely subacute mild L1 compression fractures since 03/02/2023. There is moderately prominent burst fracture deformity at L4, stable since 03/02/2023. There is vertebroplasty at L3, L4-L5, new since 03/02/2023. Again noted is multilevel degenerative disc disease, particularly prominent at L2-3 and L4-5. There is prominent degenerative change at the apophyseal joints throughout the lumbar and lumbosacral area. Prominent sacral Tarlov cyst.. IMPRESSION: Interval vertebroplasty at L3, L4 and L5 since 03/02/2023; no other significant change. Reviewed, dictated and finalized at [facility]. Reviewed, dictated and finalized at location [facility].
[2023-03-12] MEDS: SODIUM CHLORIDE 0.9% IV 500 ML 999 ML IV CONT (07:57)
[2023-03-12] MEDS: MORPHINE SULFATE (*CRX) 2 MG/ML INJ IV PUSH (07:57)
[2023-03-12 08:01] LABS: Basophils Percent Auto 0.3 % (0.2-1.2); Eosinophils Absolute Auto 0.1 K/mm3 (0-0.3); Eosinophils Percent Auto 1.2 % (0-4.4); Hematocrit 37.7 % (37.0-47.0); Hemoglobin 12.2 g/dL (12.0-15.0); Immature Granulocyte Percent A 0.9 % (0-0.5); Lymphocytes Absolute Auto 4.94 K/mm3 (0.9-3.2); Mean Corpuscular HGB Conc 32.4 g/dl (32-36); Mean Corpuscular Hemoglobin 36.1 pg (26-34); Mean Corpuscular Volume 111.5 fl (80-100); Mean Platelet Volume 9.1 fl (7.4-10.4); Monocytes Absolute Auto 0.8 K/mm3 (0.1-0.6); Neutrophils Absolute Auto 5.7 K/mm3 (1.3-6.7); Neutrophils Percent Auto 48.6 % (45.5-73.1); Platelet Count Result 222 k/mm3 (150-375); Red Blood Count 3.38 M/mm3 (4.2-5.4); Red Cell Distribution Width 16.6 % (11.5-14.5); White Blood Count 11.8 K/mm3 (4.5-10.0)
--- NOTE | 2023-03-12 08:03 | ED.BACK ---
HPI - Back Pain/Injury General Chief Complaint: Back Pain/Injury Stated Complaint: L lower back pain Time Seen by Provider: 03/12/23 07:02 History of Present Illness HPI Narrative: Patient is an 82-year-old female who presents ER with low back pain. Patient underwent kyphoplasty at multiple levels on 03/09/2023 at [facility] by Dr. Decker. After going home and having her medication wore off patient began having increased pain in her low back. She began taking Tylenol for pain and has been told that she cannot take more than 3 g in a day. She has also been instructed not to take NSAIDs. Patient went to the ER that night at the [facility] in which she had her surgery. She reports she was there for 8 hours and received no treatment. She then followed up the next morning with her surgeon. He performed an x-ray and offered no additional recommendations or treatments. She reports she has been at home having pain that is not improved by Tylenol since then. She has normal sensation in her legs and groin. She has normal function of her bowel movements and urination. She has normal strength in her legs and is able to ambulate. She just reports that the pain is constant. She cannot describe radiation. She cannot describe aggravating or alleviating factors. She is accompanied by her spouse and son. Related Data Home Medications Medication Instructions Recorded Confirmed buspirone 15 mg tablet 15 mg PO TID 10/11/22 03/02/23 rosuvastatin 10 mg tablet 10 mg PO HS 10/11/22 03/02/23 apixaban 5 mg tablet (Eliquis) 5 mg PO BID 01/15/23 03/02/23 furosemide 40 mg tablet 30 mg PO EVERY OTHER DAY 01/15/23 03/03/23 levothyroxine 125 mcg tablet 125 mcg PO DAILY 01/15/23 03/02/23 spironolactone 25 mg tablet 25 mg PO BID 01/15/23 03/02/23 insulin glargine 100 unit/mL 15 unit subcut HS 03/02/23 03/02/23 subcutaneous solution (Lantus U-100 Insulin) bisacodyl 10 mg rectal suppository mg RECTAL 03/12/23 cyanocobalamin (vitamin B-12) mcg 03/12/23 1,000 mcg/mL injection solution diclofenac sodium 1 % topical gel topical 03/12/23 diphenhydramine HCl 25 mg capsule mg 03/12/23 empagliflozin 10 mg tablet mg 03/12/23 insulin lispro 100 unit/mL subcut 03/12/23 subcutaneous pen (Humalog KwikPen (U-100) Insulin) ketoconazole 2 % topical cream applic topical 03/12/23 nystatin 03/12/23 warfarin 5 mg tablet mg 03/12/23 Allergies Allergy/AdvReac Type Severity Reaction Status Date / Time ciprofloxacin [From Cipro] Allergy Unknown Verified 03/12/23 06:45 niacin Allergy Itching Verified 03/12/23 06:45 prednisone Allergy Unknown Verified 03/12/23 06:45 sulfamethoxazole Allergy Unknown Verified 03/12/23 06:45 [From Sulfamethoxazole-Trimethoprim] trimethoprim Allergy Unknown Verified 03/12/23 06:45 [From Sulfamethoxazole-Trimethoprim] glucocorticoids AdvReac Palpitation Uncoded 03/12/23 06:45 s Review of Systems Review of Systems: All systems reviewed & are unremarkable except as noted in HPI and below Constitutional: Constitutional: Denies chills and Denies fever(s) Genitourinary: Genitourinary: Denies dysuria, Denies flank pain and Denies urinary incontinence Musculoskeletal: Musculoskeletal: Reports back pain, Denies arthralgias, Denies joint swelling and Denies muscle cramps Integumentary/Breasts: Skin/Breast: Denies erythema and Denies rash Neurologic: Denies focal weakness and Denies numbness PMFSH Past Medical History Medical History Anxiety Chronic anticoagulation Chronic atrial fibrillation, unspecified Hyperlipidemia Hyperlipidemia Hypothyroidism Type 2 diabetes mellitus Surgical History Surgical History No history of major surgery within 1 month Family History Family History Mother Arth
[2023-03-12 08:13] LABS: Alanine Aminotransferase 13 U/L (6-35); Albumin Level 4.1 g/dL (3.5-5.1); Alkaline Phosphatase 151 U/L (38-126); Anion Gap 6 mmol/L (8-16); Aspartate Amino Transferase 25 U/L (14-36); Bilirubin,Total 1.1 mg/dL (0.2-1.3); Blood Urea Nitrogen 18 mg/dL (7-17); Calcium 9.2 mg/dL (8.4-10.2); Carbon Dioxide 31 mmol/L (22-30); Chloride 102 mmol/L (98-107); Estimated CRCL calculation 47 ml/min; Estimated Glomerular Filt Rate 53; Glucose 154 mg/dL (65-110); INR 1.4; Potassium 4.3 mmol/L (3.4-5.0); Prothrombin Time 17.7 Seconds (11.1-14.7); Sodium 139 mmol/L (137-145)
[2023-03-12 08:30] LABS: Atypical Lymphocytes Present; Platelet Estimate Adequate (Adequate); Schistocytes None Seen (NORMAL); Smudge Cells FEW
--- NOTE | 2023-03-12 08:36 | PC.NURSE ---
Pt taken to CT scan.
[2023-03-12] MEDS: fentaNYL CITRATE INJ (*CRX) 100 MCG/2 ML VIAL 50 MCG IV PUSH ×4 (08:47→17:58)
--- NOTE | 2023-03-12 10:51 | ADMGEN ---
This patient, Damaris Kramer, was admitted to Medical Room 261-01 at 1050. Patient/family oriented to hospital policies and general routines including ID bracelet, bed and alarms, visiting hours, pain management, procedures, bathroom and other care routines, personal items, smoking policy, room service/diet, and visiting hours. Information on how to activate the Rapid Response Team has been discussed. Patient/Family are encouraged to report perceived risks to care and to ask questions if they do not understand what they are told or what they should do.
[2023-03-12 11:53] LABS: Glucose Point of Care 119 mg/dl (65-105)
--- NOTE | 2023-03-12 12:35 | PM.IMHP ---
H&P: HPI History of Present Illness Date/Time: 03/12/23 12:35 Chief Complaint: This is an 82-year-old female patient with history of atrial fibrillation, hyperlipidemia, hypothyroidism, insulin-dependent type 2 diabetes anxiety and chronic anticoagulation who presents to the emergency department with complaints lumbar nonradiating back pain not improving with use of Tylenol. Narrative: Patient underwent multilevel vertebroplasty at outside facility ( [facility]) last week and her pain has not been controlled with use of Tylenol. Patient states that she went back to [facility] spent 8 hours in the waiting room did not receive any additional care. She followed up with her surgeon and an unremarkable lumbar x-ray but no additional pain control. Patient reports that she has just been laying around for the last several days because of the pain worsening whenever she is active. Now all of the lying around is contributing to deconditioning and worsening pain when she does start to mobilize. Patient states that she needs additional assistance with therapy and she is being admitted for possible rehabilitation placement temporarily. She reports that she lives with her son and just recently moved in with her son few months ago. Patient denies any other symptoms except low back pain. She denies radiation. Denies bowel or bladder concerns. States a chronic history of only having 1 bowel movement every 3-4 days since childhood but no changes in this. Throughout review of systems patient repeatedly said I have no other complaints. Patient reports that it is cold in her room and she would love to have a window to look out. Review of Systems Review of Systems: All systems reviewed & are unremarkable except as noted in HPI and below PMFSH Past Medical History Medical History Anxiety Chronic anticoagulation Chronic atrial fibrillation, unspecified Hyperlipidemia Hyperlipidemia Hypothyroidism Type 2 diabetes mellitus Surgical History Surgical History S/P vertebroplasty Family History Family History Mother Arthritis Other Family history non-contributory Social History Social History Social History: Surrogate medical decision maker: Khari Kramer, son. Code status: Full code. Smoking status: Never smoker Second hand tobacco smoke exposure: No Alcohol intake: never Substance use: never Substance use type: does not use Lack of Transportation: No Lack of Food: Never True Current Housing: I Have Housing Concerned About Future Housing: No Difficulty Paying Gas/Electric Bills: No Difficulty Paying for Meds: No Currently Unemployed: No Education: Decline to Answer Difficulty w/ Childcare or Family Care: No Spiritual care concerns: No Meds Home Medications and Allergies Home Medications Medication Instructions Recorded Confirmed Type buspirone 15 mg tablet 15 mg PO TID 10/11/22 03/12/23 History rosuvastatin 10 mg tablet 10 mg PO HS 10/11/22 03/12/23 History tolnaftate 1 % topical powder 1 applic topical Q12HR 1 month #45 10/17/22 03/12/23 Rx grams amiodarone 200 mg tablet (Pacerone) 200 mg PO DAILY 1 month #120 tabs 11/14/22 03/12/23 Rx losartan 25 mg tablet 12.5 mg PO DAILY #30 tabs 11/14/22 03/12/23 Rx apixaban 5 mg tablet (Eliquis) 5 mg PO BID 01/15/23 03/12/23 History furosemide 40 mg tablet 60 mg PO EVERY OTHER DAY 01/15/23 03/12/23 History levothyroxine 125 mcg tablet 125 mcg PO DAILY 01/15/23 03/12/23 History spironolactone 25 mg tablet 25 mg PO BID 01/15/23 03/12/23 History sennosides 8.6 mg-docusate sodium 1 tab-cap PO BID #30 tabs 01/29/23 03/12/23 Rx 50 mg tablet (Senokot-S) insulin glargine 100 unit/mL 45 unit subcut 03/02/23 03/12/23
[2023-03-12] MEDS: HYDROcodone/acetaminophen (*CRX) 5-325 MG TABLET 1 TAB PO ×2 (15:30→19:59)
[2023-03-12] MEDS: busPIRone HCL 5 MG TABLET 15 MG PO (16:11)
[2023-03-12] MEDS: SENNA/DOCUSATE SODIUM TABLET 1 TAB PO (16:11)
[2023-03-12] MEDS: SPIRONOLACTONE 25 MG TABLET PO (16:11)
[2023-03-12 17:00] LABS: Hemoglobin A1C 5.6 % (<5.7)
[2023-03-12 17:13] LABS: Glucose Point of Care 138 mg/dl (65-105)
[2023-03-12] MEDS: APIXABAN 5 MG TABLET PO (20:00)
[2023-03-12] MEDS: ROSUVASTATIN 10 MG TABLET PO (20:00)
[2023-03-12] MEDS: INSULIN GLARGINE (*BKC) 100 UNITS/ML 45 UNITS SUB-Q (20:05)
[2023-03-12 21:14] LABS: Glucose Point of Care 161 mg/dl (65-105)
[2023-03-12] MEDS: TOLNAFTATE 1% POWDER 45 GM BTL 1 APPLIC TOPICAL (21:24)
[2023-03-13] MEDS: HYDROcodone/acetaminophen (*CRX) 5-325 MG TABLET 1 TAB PO ×4 (00:10→14:53)
[2023-03-13] MEDS: LEVOTHYROXINE SODIUM 125 MCG TABLET PO (05:20)
[2023-03-13 06:00] VITALS: BP 123/76; PULSE 91; RESP 16; TEMP 36.9; O2SAT 98
[2023-03-13 06:06] LABS: Hematocrit 37.1 % (37.0-47.0); Hemoglobin 11.4 g/dL (12.0-15.0); Mean Corpuscular HGB Conc 30.7 g/dl (32-36); Mean Corpuscular Hemoglobin 36.5 pg (26-34); Mean Corpuscular Volume 118.9 fl (80-100); Platelet Count Result 179 k/mm3 (150-375); Red Blood Count 3.12 M/mm3 (4.2-5.4); Red Cell Distribution Width 16.9 % (11.5-14.5); White Blood Count 9.1 K/mm3 (4.5-10.0)
[2023-03-13 06:07] LABS: Anion Gap 4 mmol/L (8-16); Blood Urea Nitrogen 18 mg/dL (7-17); Calcium 8.6 mg/dL (8.4-10.2); Carbon Dioxide 29 mmol/L (22-30); Chloride 104 mmol/L (98-107); Estimated CRCL calculation 54 ml/min; Estimated Glomerular Filt Rate > 60; Glucose 123 mg/dL (65-110); Potassium 3.9 mmol/L (3.4-5.0); Sodium 137 mmol/L (137-145)
[2023-03-13 08:00] VITALS: PULSE 88; RESP 14; O2SAT 97
[2023-03-13 08:25] LABS: Glucose Point of Care 136 mg/dl (65-105)
--- NOTE | 2023-03-13 08:28 | PM.IMPN ---
Progress Note: A&P Assessment and Plan (1) Intractable low back pain: Code(s): M54.59 - Other low back pain Status: Acute Assessment and Plan: Status post vertebroplasty. Pain control with mobility, Tylenol and [place]. PT OT requested. Patient likely to need rehabilitation stay. (2) Atrial fibrillation: Code(s): I48.91 - Unspecified atrial fibrillation Status: Acute Assessment and Plan: On chronic anticoagulation, rate appears generally near 100. No chest pain or shortness of breath. (3) Chronic anticoagulation: Code(s): Z79.01 - shelter (current) use of anticoagulants Status: Acute Assessment and Plan: Eliquis and warfarin on med list. Only Eliquis ordered now. (4) Type 2 diabetes mellitus: Code(s): E11.9 - Type 2 diabetes mellitus without complications Status: Acute Assessment and Plan: Resume home medications including glargine. ACHS fingerstick glucose with medium insulin correction. A1c 5.6 Plan Admit to observation for pain control. PT/OT for DC planning, possible rehab Mobilize often to improve status. Out of bed to chair for meals. CT abdomen pelvis now. VTE prophylaxis: Eliquis and Regino hose GI prophylaxis: not indicated Diet: Carb consistent Home meds: reconcile completed Subjective Date/time seen: 03/13/23 08:28 Interval history: HPI obtained from chart, Chief Complaint: This is an 82-year-old female patient with history of atrial fibrillation, hyperlipidemia, hypothyroidism, insulin-dependent type 2 diabetes anxiety and chronic anticoagulation who presents to the emergency department with complaints lumbar nonradiating back pain not improving with use of Tylenol. Narrative: ? Patient underwent multilevel vertebroplasty at outside facility ( [facility]) last week and her pain has not been controlled with use of Tylenol.? Patient states that she went back to [facility] spent 8 hours in the waiting room did not receive any additional care.? She followed up with her surgeon and an unremarkable lumbar x-ray but no additional pain control.? Patient reports that she has just been laying around for the last several days because of the pain worsening whenever she is active.? Now all of the lying around is contributing to deconditioning and worsening pain when she does start to mobilize.? Patient states that she needs additional assistance with therapy and she is being admitted for possible rehabilitation placement temporarily.? She reports that she lives with her son and just recently moved in with her son few months ago.? Patient denies any other symptoms except low back pain.? She denies radiation.? Denies bowel or bladder concerns.? States a chronic history of only having 1 bowel movement every 3-4 days since childhood but no changes in this.? Throughout review of systems patient repeatedly said I have no other complaints. ? Patient reports that it is cold in her room and she would love to have a window to look out. Interval history: 03/13: Patient seen at bedside with her present. She is a poor historian. She is alert and oriented x4 but when I ask your when her back surgery was she says I think it was 2 days ago . I also asked if she went to rehab after surgery in she says that she does not know if she did or not. Her complaints today are of left-sided back pain. She does not have pain in her spine she says that it is all musculoskeletal. I asked what she was taking at home to help with the pain and she does not recall if she was taking anything. The pain does not travel down her legs. She denies numbness or tingling to the lower extremities. She also complains of burning with urination. She says that she frequently has to go to the bathroom but she does not urinate very much. Her UA has large amount of squamous cells her, greater than 100 wbc's, red cells present, and 2+ leuks. Yeast present a
[2023-03-13 10:02] VITALS: BP 112/69; PULSE 88; RESP 14; O2SAT 97
[2023-03-13] MEDS: SPIRONOLACTONE 25 MG TABLET PO ×2 (10:04→17:44)
[2023-03-13] MEDS: busPIRone HCL 5 MG TABLET 15 MG PO ×3 (10:04→17:44)
[2023-03-13] MEDS: SENNA/DOCUSATE SODIUM TABLET 1 TAB PO ×2 (10:04→17:44)
[2023-03-13] MEDS: APIXABAN 5 MG TABLET PO (10:04)
[2023-03-13 10:05] VITALS: PULSE 88
[2023-03-13] MEDS: FUROSEMIDE 20 MG TABLET 60 MG PO (10:05)
[2023-03-13] MEDS: TOLNAFTATE 1% POWDER 45 GM BTL 1 APPLIC TOPICAL (10:05)
[2023-03-13] MEDS: AMIODARONE HCL 200 MG TABLET PO (10:05)
[2023-03-13] MEDS: EMPAGLIFLOZIN 10 MG TABLET PO (10:05)
[2023-03-13] MEDS: LOSARTAN POTASSIUM 12.5 MG TABLET PO (10:05)
[2023-03-13 11:30] LABS: Appearance Urine Turbid (Clear); Bacteria Urine Rare /hpf; Bilirubin Urine Negative (Negative); Budding Yeast Urine Present /hpf; Color Urine Yellow (Yellow); Glucose Urine UA 3+ mg/dL (Negative); Ketones Urine Negative (Negative); Leukocyte Esterase Ur 2+ LEU/UL (Negative); Need Manual Microscopic Reviewed; Nitrate Urine Negative (Negative); Non Pathogenic Casts 0-2; Protein Urine 1+ mg/dL (Negative); RBC Urine 21-50 /hpf (0-2); Specific Grav Ur 1.031 (1.001-1.035); Squamous Epithelial Cell Urine Many /hpf (Few); WBC Urine >100 /hpf; pH Urine 5.5 (5.0-9.0)
[2023-03-13 11:35] LABS: Add Urine Microscopic? YES
[2023-03-13 11:55] LABS: Glucose Point of Care 152 mg/dl (65-105)
[2023-03-13 14:45] VITALS: BP 101/65; PULSE 108; RESP 18; TEMP 36.7; O2SAT 98
[2023-03-13] MEDS: NITROFURANTOIN MONOHYD MACROCR 100 MG CAP PO (14:54)
--- NOTE | 2023-03-13 15:24 | PM.DS ---
DS: Admitting Diagnosis Discharge Date March 13 Admitting Diagnosis back pain DS: Discharge Diagnosis Discharge Diagnosis (1) Intractable low back pain: Code(s): M54.59 - Other low back pain Status: Acute Assessment and Plan: Status post vertebroplasty. Pain control with mobility, Tylenol and [place]. PT OT requested. Patient likely to need rehabilitation stay. (2) Atrial fibrillation: Code(s): I48.91 - Unspecified atrial fibrillation Status: Acute Assessment and Plan: On chronic anticoagulation, rate appears generally near 100. No chest pain or shortness of breath. (3) Chronic anticoagulation: Code(s): Z79.01 - [place] (current) use of anticoagulants Status: Acute Assessment and Plan: Eliquis and warfarin on med list. Only Eliquis ordered now. (4) Type 2 diabetes mellitus: Code(s): E11.9 - Type 2 diabetes mellitus without complications Status: Acute Assessment and Plan: Resume home medications including glargine. ACHS fingerstick glucose with medium insulin correction. A1c 5.6 Plan Admit to observation for pain control. PT/OT for DC planning, possible rehab Mobilize often to improve status. Out of bed to chair for meals. CT abdomen pelvis now. VTE prophylaxis: Eliquis and Regino hose GI prophylaxis: not indicated Diet: Carb consistent Home meds: reconcile completed DS: Summary Hospital Course Hospital Course: Chief Complaint: This is an 82-year-old female patient with history of atrial fibrillation, hyperlipidemia, hypothyroidism, insulin-dependent type 2 diabetes anxiety and chronic anticoagulation who presents to the emergency department with complaints lumbar nonradiating back pain not improving with use of Tylenol. Narrative: ? Patient underwent multilevel vertebroplasty at outside facility ( [facility] last week and her pain has not been controlled with use of Tylenol.? Patient states that she went back to [facility] spent 8 hours in the waiting room did not receive any additional care.? She followed up with her surgeon and an unremarkable lumbar x-ray but no additional pain control.? Patient reports that she has just been laying around for the last several days because of the pain worsening whenever she is active.? Now all of the lying around is contributing to deconditioning and worsening pain when she does start to mobilize.? Patient states that she needs additional assistance with therapy and she is being admitted for possible rehabilitation placement temporarily.? She reports that she lives with her son and just recently moved in with her son few months ago.? Patient denies any other symptoms except low back pain.? She denies radiation.? Denies bowel or bladder concerns.? States a chronic history of only having 1 bowel movement every 3-4 days since childhood but no changes in this.? Throughout review of systems patient repeatedly said I have no other complaints. ? Patient reports that it is cold in her room and she would love to have a window to look out. Interval history: 03/13: ? Patient seen at bedside with her present.? She is a poor historian.? She is alert and oriented x4 but when I ask your when her back surgery was she says I think it was 2 days ago .? I also asked if she went to rehab after surgery in she says that she does not know if she did or not.? Her complaints today are of left-sided back pain.? She does not have pain in her spine she says that it is all musculoskeletal.? I asked what she was taking at home to help with the pain and she does not recall if she was taking anything.? The pain does not travel down her legs.? She denies numbness or tingling to the lower extremities. ? She also complains of burning with urination.? She says that she frequently has to go to the bathroom but she does not? urinate very much.? Her? UA has large amount of squamous cells her, greater than 100 wbc's,
== END 2023-03-13 18:00 | DRG 552 ==
LOC: ANHED 10:11 → ANH2MED 10:32
PROVIDERS: Nurse Practitioner; Admitting Provider Internal Medicine; Emergency Provider Emergency Medicine; PCP Internal Medicine; Visit Provider Nurse Practitioner Acute Care
DX: M54.59 Other low back pain (principal); N39.0 Urinary tract infection, site not specified; I48.20 Chronic atrial fibrillation, unspecified; E11.9 Type 2 diabetes mellitus without complications; E78.5 Hyperlipidemia, unspecified; E03.9 Hypothyroidism, unspecified; F41.9 Anxiety disorder, unspecified; I87.2 Venous insufficiency (chronic) (peripheral); Z98.1 Arthrodesis status; Z79.01 Long term (current) use of anticoagulants; Z79.4 Long term (current) use of insulin
CPT/HCPCS: 36415; 72131; 74176; 80048; 80053; 81001; 82948; 83036; 85025; 85027; 85610; 85730; 87086; 87088; 96361; 96365; 96367; 96372; 96375; 96376; 97116; 97161; 97165; 97530; 99285; A9270; G0378; J1815; J2270; J3010; J7040

== ENCOUNTER 2023-03-30 01:51 | Emergency (ER) | payer MEDICARE, SELFPAY ==
[2023-03-30] VITALS (8 sets, daily range): BP systolic 89–118; BP diastolic 46–81; PULSE 66–106; RESP 15–21; TEMP 36.4; O2SAT 95–100
--- NOTE | ~2023-03-30 | CT_ITS ---
Noncontrast CT scan of the lumbar spine CLINICAL HISTORY: Back pain, history of fracture TECHNIQUE: Axial noncontrast imaging of the lumbar spine was performed. Sagittal and coronal reformat isidoro images were constructed. Dose reduction technique was used on this scan by utilizing automated ex posure control and iterative reconstruction technique. The dose-length product (DLP) was 2157.44 mGy- cm. COMPARISON: 03/12/2023 FINDINGS: There is vertebroplasty cement within the L3, L4, L5 vertebral bodies, with mild loss of he ight of L4-L5. These findings are stable from prior exam. Probable subacute healing fracture of L1, p articularly at the anterosuperior corner, similar to prior exam. Osseous alignment is unchanged. At L1-L2, there is moderate to advanced degenerative disc narrowing. There is mild disc bulge. There is probable moderate to severe bilateral neural foraminal narrowing. At L2-L3, there is advanced degenerative disc narrowing. There is mild disc bulge and mild facet arth ropathy. No lizeth central canal stenosis. There is severe bilateral neural foraminal narrowing. L3-L4, there is advanced degenerative disc narrowing. Disc bulge and facet arthropathy result in prob able moderate to severe central canal stenosis/thecal sac compression. There is severe left neural fo raminal narrowing and moderate right neural foraminal narrowing. At L4-L5, there is severe degenerative disc narrowing. Disc bulge and facet arthropathy result in pro bable moderate to possibly severe central canal stenosis. There is severe left neural foraminal narro wing. Right neural foramen relatively preserved. At L5-S1, there is disc bulge and facet arthropathy. No lizeth central canal stenosis. There is modera te to advanced right neural foraminal narrowing. Paravertebral soft tissues are unremarkable. 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 Impression: Vertebroplasty cement at L3, L4, L5, with loss of height of these vertebral bodies, stable from prior exam. Stable probable subacute healing fracture of L1, as compared to prior exam. Moderate to advanced degenerative spondylosis, as detailed above, worst at L3-L4 and L4-L5. 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 Reviewed, dictated and finalized at location [facility]. Impression: Vertebroplasty cement at L3, L4, L5, with loss of height of these vertebral bod ies, stable from prior exam. Stable probable subacute healing fracture of L1, as compared to prior exam. Moderate to advanced degenerative spondylosis, as detailed above, worst at L3-L 4 and L4-L5. Stable large cystic/lytic lesion posterior to the S2-S3 level, likely large [place] cyst based on prior MR.
--- NOTE | 2023-03-30 06:17 | ED.GENADULT ---
HPI - General Adult General Chief complaint: Back Pain/Injury <Scout Ashby MD - Last Filed: 03/30/23 07:47> Stated complaint: lower back pain <Scout Ashby MD - Last Filed: 03/30/23 07:47> Time Seen by Provider: 03/30/23 05:14 <Scout Ashby MD - Last Filed: 03/30/23 07:47> History of Present Illness HPI narrative: Patient is a 82-year-old female who presents the emergency department with chief complaint of low back pain. The patient has history of a lumbar burst fracture which she has had a kyphoplasty patient has been in and out of the hospital multiple times for pain management patient was doing okay and has been doing physical therapy the patient states that today she started having severe pain in the lumbar region that goes down her left side of her back into her left gluteal area patient denies paresthesias denies bowel or bladder dysfunction the patient reports her mobility is limited due to pain <Scout Ashby MD - Last Filed: 03/30/23 07:47> Related Data Home medications: Home Medications Medication Instructions Recorded Confirmed buspirone 15 mg tablet 15 mg PO TID 10/11/22 03/12/23 rosuvastatin 10 mg tablet 10 mg PO HS 10/11/22 03/13/23 apixaban 5 mg tablet (Eliquis) 5 mg PO BID 01/15/23 03/12/23 levothyroxine 125 mcg tablet 125 mcg PO DAILY 01/15/23 03/12/23 spironolactone 25 mg tablet 25 mg PO BID 01/15/23 03/12/23 insulin glargine 100 unit/mL 45 unit subcut HS 03/02/23 03/12/23 subcutaneous solution (Lantus U-100 Insulin) acetaminophen 500 mg tablet 1,000 mg PO Q6H PRN Pain 03/12/23 03/12/23 bisacodyl 10 mg rectal suppository 10 mg RECTAL DAILY PRN Constipation 03/12/23 03/12/23 cyanocobalamin (vitamin B-12) 1,000 mcg IM MONTHLY 03/12/23 03/12/23 1,000 mcg/mL injection solution diclofenac sodium 1 % topical gel 1 inch topical BID PRN Pain 03/12/23 03/12/23 diphenhydramine HCl 25 mg capsule 25 mg PO Q8H PRN Itching 03/12/23 03/12/23 empagliflozin 10 mg tablet 10 mg PO DAILY 03/12/23 03/12/23 insulin lispro 100 unit/mL See Protocol subcut ACHS 03/12/23 03/12/23 subcutaneous pen (Humalog KwikPen (U-100) Insulin) ketoconazole 2 % topical cream See Protocol topical BID PRN fungal 03/12/23 03/14/23 <Scout Ashby MD - Last Filed: 03/30/23 07:47> Allergies/adverse reactions: Allergies Allergy/AdvReac Type Severity Reaction Status Date / Time ciprofloxacin [From Cipro] Allergy Unknown Verified 03/30/23 01:51 niacin Allergy Itching Verified 03/30/23 01:51 prednisone Allergy Unknown Verified 03/30/23 01:51 sulfamethoxazole Allergy Unknown Verified 03/30/23 01:51 [From Sulfamethoxazole-Trimethoprim] trimethoprim Allergy Unknown Verified 03/30/23 01:51 [From Sulfamethoxazole-Trimethoprim] glucocorticoids AdvReac Palpitation Uncoded 03/30/23 01:51 s <Scout Ashby MD - Last Filed: 03/30/23 07:47> Review of Systems Review of Systems: A 10 system review of systems was completed on the patient and is negative except for what is stated in the HPI. Nursing and ancillary documentation was reviewed. <Scout Ashby MD - Last Filed: 03/30/23 07:47> [facility] Past Medical History Medical History: Medical History Anxiety Chronic anticoagulation Chronic atrial fibrillation, unspecified Hyperlipidemia Hyperlipidemia Hypothyroidism Type 2 diabetes mellitus <Scout Ashby MD - Last Filed: 03/30/23 07:47> Surgical History Surgical History: Surgical History S/P vertebroplasty <Scout Ashby MD - Last Filed: 03/30/23 07:47> Family History Family History: Family History Mother Arthritis Other Family history non-contributory <Scout
[2023-03-30] MEDS: MORPHINE SULFATE (*CRX) 2 MG/ML INJ IV PUSH ×2 (07:12→11:10)
[2023-03-30 08:11] LABS: Basophils Percent Auto 0.3 % (0.2-1.2); Eosinophils Absolute Auto 0.1 K/mm3 (0-0.3); Eosinophils Percent Auto 1.1 % (0-4.4); Hematocrit 38.2 % (37.0-47.0); Hemoglobin 12.6 g/dL (12.0-15.0); Immature Granulocyte Percent A 1.1 % (0-0.5); Lymphocytes Absolute Auto 2.75 K/mm3 (0.9-3.2); Lymphocytes Percent Auto 29.3 % (18.3-44.2); Mean Corpuscular Hemoglobin 36.5 pg (26-34); Mean Corpuscular Volume 110.7 fl (80-100); Mean Platelet Volume 9.1 fl (7.4-10.4); Monocytes Absolute Auto 0.5 K/mm3 (0.1-0.6); Monocytes Percent Auto 5.3 % (2.6-8.5); Neutrophils Absolute Auto 5.9 K/mm3 (1.3-6.7); Neutrophils Percent Auto 62.9 % (45.5-73.1); Platelet Count Result 199 k/mm3 (150-375); Red Blood Count 3.45 M/mm3 (4.2-5.4); Red Cell Distribution Width 15.5 % (11.5-14.5); White Blood Count 9.4 K/mm3 (4.5-10.0)
[2023-03-30 08:17] LABS: Appearance Urine Clear (Clear); Bacteria Urine 3+ /hpf; Bilirubin Urine Negative (Negative); Blood Urine Negative (Negative); Color Urine Yellow (Yellow); Glucose Urine UA 2+ mg/dL (Negative); Ketones Urine Negative (Negative); Leukocyte Esterase Ur 2+ LEU/UL (Negative); Nitrate Urine Positive (Negative); Protein Urine Negative (Negative); RBC Urine 0-2 /hpf (0-2); Specific Grav Ur 1.014 (1.001-1.035); Squamous Epithelial Cell Urine None seen /hpf (Few); Urobilinogen Urine 0.2 mg/dL (<2.0)
[2023-03-30 08:20] LABS: Add Urine Microscopic? YES
[2023-03-30 08:23] LABS: Alanine Aminotransferase 9 U/L (6-35); Albumin Level 4.3 g/dL (3.5-5.1); Alkaline Phosphatase 181 U/L (38-126); Anion Gap 11 mmol/L (8-16); Aspartate Amino Transferase 22 U/L (14-36); Bilirubin,Total 0.7 mg/dL (0.2-1.3); Blood Urea Nitrogen 25 mg/dL (7-17); Carbon Dioxide 20 mmol/L (22-30); Chloride 104 mmol/L (98-107); Estimated CRCL calculation 37 ml/min; Estimated Glomerular Filt Rate 39; Glucose 155 mg/dL (65-110); Sodium 135 mmol/L (137-145)
[2023-03-30 08:32] LABS: Platelet Estimate Adequate (Adequate)
[2023-03-30] MEDS: MORPHINE SULFATE (*CRX) 4 MG/ML INJ IV PUSH (08:32)
[2023-03-30 08:33] LABS: Anisocytosis 2+ (NORMAL); Macrocytosis 1+ (NORMAL); Microcytosis 2+ (NORMAL); Schistocytes None Seen (NORMAL)
== END 2023-03-30 12:07 | disposition home or self-care (01) ==
PROVIDERS: Emergency Medicine; Emergency Provider Emergency Medicine; PCP Internal Medicine
DX: M54.50 Low back pain, unspecified (principal); N39.0 Urinary tract infection, site not specified; I48.20 Chronic atrial fibrillation, unspecified; E78.5 Hyperlipidemia, unspecified; E03.9 Hypothyroidism, unspecified; E11.9 Type 2 diabetes mellitus without complications; F41.9 Anxiety disorder, unspecified; Z79.4 Long term (current) use of insulin; Z79.01 Long term (current) use of anticoagulants; M47.816 Spondylosis without myelopathy or radiculopathy, lumbar region; M85.48 Solitary bone cyst, other site
CPT/HCPCS: 36415; 72131; 80053; 81001; 85025; 87077; 87086; 87186; 96374; 96376; 99284; J2270

== ENCOUNTER 2023-08-28 06:52 | Emergency (ER) | payer MEDICARE, SELFPAY ==
--- NOTE | ~2023-08-28 | CT_ITS ---
EXAMINATION: CT brain wo con DATE: 08/28/2023 08:12 INDICATION: Fall. Right forehead hematoma. TECHNIQUE: Computed tomography (CT) of the head was performed without intravenous contrast. The mA wa s adjusted according to patient size. Iterative reconstruction technique was employed. Exam dose: 60 5.33 mGy-cm total exam DLP. COMPARISON: October 20, 2022 CT brain FINDINGS: Moderate right frontal cephalohematoma. No skull fracture or acute intracranial finding is evident. No coup or contrecoup injury is identified. Chronic right frontal focal encephalomalacia mild calcification, without any associated soft tissue m ass or mass effect or edema. There are intracranial mass lesion or hemorrhage, subdural or epidural hematoma, midline shift or mas s effect. Small chronic lacunar infarct in the region of the anterior limb of the right internal capsule and ri ght basal ganglia. There is nonspecific diminished attenuation of the cerebral white matter, likely d ue to chronic small vessel ischemic changes. Prominent bilateral cerebral artery, basilar artery and bilateral carotid siphon and supraclinoid int ernal carotid artery calcifications. Status post bilateral lens replacements. The paranasal sinuses and mastoid air cells are normally developed and aerated. IMPRESSION: Right frontal cephalohematoma; no skull fracture or acute intracranial finding Reviewed, dictated and finalized at [facility]. Reviewed, dictated and finalized at location B. MENT REMEDIATION CONSULTANT IMPRESSION: Right frontal cephalohematoma; no skull fracture or acute intracra nial finding
--- NOTE | ~2023-08-28 | CT_ITS ---
CT Facial Bones and Cervical Spine Clinical Indication: Trauma Technique: Contiguous axial scans were obtained through the facial bones and cervical spine followed by coronal and sagittal reconstructions. Dose reduction technique was used on this scan by utilizing automated exposure control and iterative reconstruction technique. The dose-length product (DLP) was 431.12 mGy-cm. Findings: CT facial bones: No fractures are identified. The visualized paranasal sinuses are clear. Intraorbita l soft tissues appear normal. There is soft tissue swelling in the frontal scalp. CT cervical spine: No fractures or subluxation. There is degenerative change at the articulation of the odontoid process with the anterior arch of C1. There is moderate degenerative disc narrowing at C 5-C6 and C6-C7. There is left neural foraminal narrowing at C3-C4. There is right neural foraminal na rrowing at C4-C5. There is bilateral neural foraminal narrowing at C5-C6. There is multilevel facet a rthropathy. No prevertebral soft tissue swelling. Impression: No fracture is seen in the facial bones. No fracture or subluxation of the cervical spine. Degenerative spondylosis, as above. Frontal scalp soft tissue swelling. Reviewed, dictated and finalized at [facility]. ACE HAND Impression: No fracture is seen in the facial bones. No fracture or subluxation of the cervical spine. Degenerative spondylosis, as above. Frontal scalp soft tissue swelling.
--- NOTE | ~2023-08-28 | CT_ITS ---
EXAMINATION: CT thoracic spine wo con DATE: 08/28/2023 09:00 INDICATION: T12 fracture. TECHNIQUE: Computed tomography (CT) of the thoracic spine was performed without intravenous contrast. Automated exposure control and iterative reconstruction technique were employed. The dose-length pro duct was 3014.21 mGy-cm. COMPARISON: None FINDINGS: Partially visualized is a comminuted fracture of proximal right humerus partially obscured by motion artifact. There are changes of cholecystectomy. There are trace pleural effusions. There is mild atelectasis bilaterally. There is a small sliding hiatal hernia. A calcified left lung nodule a nd calcified left hilar lymph node are consistent with old granulomatous disease. There is kyphosis o f thoracic spine. 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 There is mild chronic anterior wedging of T5-T9 v ertebral bodies. There is a distracted burst fracture of T12 with hyperlordosis and up to 3.4 cm dist raction anteriorly. There are fractures of the L1 superior facets bilaterally. There is mildly decrea sed disc height from T2-T3 and T3-T4, moderately decreased disc height at T4-T5 and T5-T6, severely d ecreased disc height from T6-T7 through T9-T10, and mildly decreased disc height at T10-T11. There ar e fractures of the right L1 rib and right transverse process. There is a nondisplaced fracture of L1 spinous process. There is multilevel mild neural foraminal stenosis bilaterally. On the right, there is severe neural foraminal stenosis at T2-T3 and T12-L1. On the left, there is severe neural foramina l stenosis at T5-T6 and moderate neural foraminal stenosis at T8-T9. There is epidural lipomatosis in mid thoracic spine. There is mild central canal stenosis at multiple levels in mid thoracic spine. IMPRESSION: 1. Partially visualized comminuted fracture of proximal right humerus. 2. Distracted fracture of T12 vertebral body. 3. Fractures of the L1 superior facets, right transverse process, and right rib. 4. DISH. Reviewed, dictated and finalized at location [facility]. REWINDER IMPRESSION: 1. Partially visualized comminuted fracture of proximal right humerus. 2. Distracted fracture of T12 vertebral body. 3. Fractures of the L1 superior facets, right transverse process, and right rib . 4. DISH.
--- NOTE | ~2023-08-28 | XR_ITS ---
Right Shoulder Technique: AP and scapular Y views were obtained. Clinical History: Pain Findings: There is an acute, comminuted fracture predominantly through the surgical neck of the dista l humerus, with probable extension to the greater tuberosity and proximal humeral shaft as well. No d islocation evident. The glenohumeral and acromioclavicular joint spaces are preserved. Soft tissues a re unremarkable. Impression: Acute, comminuted fracture predominantly involving the surgical neck of the humerus, with probable ad ditional extension to the proximal shaft and greater tuberosity. Reviewed, dictated and finalized at location M. RMATION AND DATA ARCHITECT ANALYST Impression: Acute, comminuted fracture predominantly involving the surgical neck of the hum erus, with probable additional extension to the proximal shaft and greater tube rosity.
--- NOTE | ~2023-08-28 | CT_ITS ---
EXAMINATION: CT lumbar spine wo con DATE: 08/28/2023 08:13 INDICATION: Trauma. TECHNIQUE: Computed tomography (CT) of the lumbar spine was performed without intravenous contrast. A utomated exposure control and iterative reconstruction technique were employed. The dose-length produ ct was 1307.67 mGy-cm. COMPARISON: CT lumbar spine 03/30/2023 FINDINGS: There is 20 degrees levoscoliosis of thoracolumbar spine. There is a burst fracture of T12 with 3.0 cm distraction anteriorly and focal hyperlordosis. There are fractures of the L1 superior fa cets. There is a fracture of the right L1 rib. There is a compression fracture of inferior endplate o f L2 with 1/5 loss of height, new from 03/30/2023. There are chronic fractures of L3 and L4 with cote es of vertebroplasties. There is a subacute fracture of L5 with persistent fracture lines and scleros is and changes of vertebroplasty with worsened height loss from 03/30/2023. There are bridging endplat e osteophytes at T12-L1 and T11-T12. There is mildly decreased disc height at T12-L1, moderately decr eased disc height at L1-L2, severely decreased disc height at L2-L3, moderately decreased disc at L3- L4, severely decreased disc height at L4-L5, and mildly decreased disc height at L5-S1. There is a Ta rlov cyst on the right at S3. The following disc levels are specifically discussed: T12-L1: The disc does not extend beyond the endplate margin. There is mild bilateral facet joint oste oarthritis. There is severe right and mild left neural foraminal stenosis. There is no central canal stenosis. L1-L2: The disc is bulging. There is severe bilateral facet joint osteoarthritis. There is moderate r ight and mild left neural foraminal stenosis. There is mild central canal stenosis. L2-L3: The disc is bulging. There is severe bilateral facet joint osteoarthritis. There is moderate b ilateral neural foraminal stenosis. There is mild central canal stenosis. L3-L4: The disc is bulging. There is severe bilateral facet joint osteoarthritis. There is moderate b ilateral neural foraminal stenosis. There is severe central canal stenosis. L4-L5: The disc is bulging. There is severe bilateral facet joint osteoarthritis. There is moderate b ilateral neural foraminal stenosis. There is moderate central canal stenosis. L5-S1: The disc is bulging. There is severe bilateral facet joint osteoarthritis. There is moderate r ight and mild left neural foraminal stenosis. There is mild central canal stenosis. IMPRESSION: 1. Acute burst fracture of T12 with distraction and hyperlordosis. 2. Fractures of the bilateral L1 superior facets and right L1 rib. 3. Subacute L5 burst fracture, worsened from 03/30/2023. Changes of vertebroplasty again seen. 4. Severe lumbar spondylosis. 5. Thoracolumbar levoscoliosis. Reviewed, dictated and finalized at location A. CTOR SALES TRAINING IMPRESSION: 1. Acute burst fracture of T12 with distraction and hyperlordosis. 2. Fractures of the bilateral L1 superior facets and right L1 rib. 3. Subacute L5 burst fracture, worsened from 03/30/2023. Changes of vertebroplas ty again seen. 4. Severe lumbar spondylosis. 5. Thoracolumbar levoscoliosis.
--- NOTE | ~2023-08-28 | XR_ITS ---
Left Shoulder Technique: AP and scapular Y views were obtained. Clinical History: Pain Findings: No fracture or dislocation is seen. Osseous alignment is anatomic. There is advanced glenoh umeral joint degenerative change, and mild to moderate AC joint degenerative change.. Soft tissues ar e unremarkable. Probable calcified left apical granuloma present. Impression: Advanced degenerative change of the glenohumeral joint. Moderate AC joint degenerative change. No definite acute fracture or dislocation seen. Reviewed, dictated and finalized at location . ARCHITECT Impression: Advanced degenerative change of the glenohumeral joint. Moderate AC joint degenerative change. No definite acute fracture or dislocation seen.
[2023-08-28 06:54] VITALS: BP 122/99; PULSE 124; RESP 20; O2SAT 98
[2023-08-28 07:03] VITALS: BP 122/99; PULSE 129; RESP 27; TEMP 36.9; O2SAT 98
--- NOTE | 2023-08-28 07:22 | PC.NURSE ---
Assumed care of pt. Pt remains with Cervical collar intact. A/O x3. Pt c/o pain to left arm, lower back pain from pain. Abrasion to bridge nose, hematoma to right forehead. Chronic bilateral feet redness, scaly skin.
[2023-08-28] MEDS: MORPHINE SULFATE (*CRX) 4 MG/ML INJ IV PUSH ×2 (09:34→11:02)
--- NOTE | 2023-08-28 09:37 | PC.NURSE ---
Dr. Núñez spoke with pt concerning POC. Pt agreeable. Remains in Cervical collar
--- NOTE | 2023-08-28 09:37 | ED.FALL ---
HPI - Fall General Chief Complaint: Fall Stated Complaint: fall Time Seen by Provider: 08/28/23 07:01 History of Present Illness HPI Narrative: Patient is an 82-year-old female who presents ER after a fall at home. She lives at home with her who has dementia and her son. She was going to the bathroom when she fell forward onto her face. She has pain in her shoulders bilaterally and is also reporting low back pain. No numbness or tingling to the arms or legs. She denies headache but has bruising across her face and some remnants of bleeding to her nose. She is on Eliquis. Related Data Home Medications Medication Instructions Recorded Confirmed buspirone 15 mg tablet 15 mg PO TID 10/11/22 03/12/23 rosuvastatin 10 mg tablet 10 mg PO HS 10/11/22 03/13/23 apixaban 5 mg tablet (Eliquis) 5 mg PO BID 01/15/23 03/12/23 levothyroxine 125 mcg tablet 125 mcg PO DAILY 01/15/23 03/12/23 spironolactone 25 mg tablet 25 mg PO BID 01/15/23 03/12/23 insulin glargine 100 unit/mL 45 unit subcut HS 03/02/23 03/12/23 subcutaneous solution (Lantus U-100 Insulin) acetaminophen 500 mg tablet 1,000 mg PO Q6H PRN Pain 03/12/23 03/12/23 bisacodyl 10 mg rectal suppository 10 mg RECTAL DAILY PRN Constipation 03/12/23 03/12/23 cyanocobalamin (vitamin B-12) 1,000 mcg IM MONTHLY 03/12/23 03/12/23 1,000 mcg/mL injection solution diclofenac sodium 1 % topical gel 1 inch topical BID PRN Pain 03/12/23 03/12/23 diphenhydramine HCl 25 mg capsule 25 mg PO Q8H PRN Itching 03/12/23 03/12/23 empagliflozin 10 mg tablet 10 mg PO DAILY 03/12/23 03/12/23 insulin lispro 100 unit/mL See Protocol subcut ACHS 03/12/23 03/12/23 subcutaneous pen (Humalog KwikPen (U-100) Insulin) ketoconazole 2 % topical cream See Protocol topical BID PRN fungal 03/12/23 03/14/23 Allergies Allergy/AdvReac Type Severity Reaction Status Date / Time ciprofloxacin [From Cipro] Allergy Unknown Verified 03/30/23 01:51 niacin Allergy Itching Verified 03/30/23 01:51 prednisone Allergy Unknown Verified 03/30/23 01:51 sulfamethoxazole Allergy Unknown Verified 03/30/23 01:51 [From Sulfamethoxazole-Trimethoprim] trimethoprim Allergy Unknown Verified 03/30/23 01:51 [From Sulfamethoxazole-Trimethoprim] glucocorticoids AdvReac Palpitation Uncoded 03/30/23 01:51 s Review of Systems Review of Systems: All systems reviewed & are unremarkable except as noted in HPI and below ENT: Reports system reviewed and no additional complaints, except as documented Cardiovascular: Cardiovascular: Reports no additional cardiovascular complaints Respiratory: Respiratory: Reports no additional respiratory complaints Gastrointestinal: Gastrointestinal: Reports no additional gastrointestinal complaints Musculoskeletal: Musculoskeletal: Reports back pain, Reports arthralgias, Denies joint swelling and Denies muscle cramps Integumentary/Breasts: Skin/Breast: Reports system reviewed and no additional complaints, except as docu Neurologic: Denies syncope, Denies headache(s), Denies focal weakness and Denies numbness PMFSH Past Medical History Medical History Anxiety Chronic anticoagulation Chronic atrial fibrillation, unspecified Hyperlipidemia Hyperlipidemia Hypothyroidism Type 2 diabetes mellitus Surgical History Surgical History S/P vertebroplasty Family History Family History Mother Arthritis Other Family history non-contributory Social History Social History Social History: Surrogate medical decision maker: Khari Kramer, son. Code status: Full code. Smoking status: Never smoker Second hand tobacco smoke exposure: No Alcohol intake: unknown Substance use: never Substance use type: does not use
[2023-08-28 09:40] LABS: Basophils Percent Auto 0.2 % (0.2-1.2); Eosinophils Percent Auto 0.1 % (0-4.4); Hematocrit 34.4 % (37.0-47.0); Immature Granulocyte Absolute 0.12 K/mm3 (0.00-0.031); Immature Granulocyte Percent A 0.6 % (0-0.5); Lymphocytes Absolute Auto 4.07 K/mm3 (0.9-3.2); Lymphocytes Percent Auto 21.4 % (18.3-44.2); Mean Corpuscular Hemoglobin 35.8 pg (26-34); Mean Corpuscular Volume 112.1 fl (80-100); Mean Platelet Volume 8.8 fl (7.4-10.4); Monocytes Absolute Auto 1.1 K/mm3 (0.1-0.6); Monocytes Percent Auto 5.8 % (2.6-8.5); Neutrophils Absolute Auto 13.7 K/mm3 (1.3-6.7); Neutrophils Percent Auto 71.9 % (45.5-73.1); Platelet Count Result 157 k/mm3 (150-375); Red Blood Count 3.07 M/mm3 (4.2-5.4); Red Cell Distribution Width 14.9 % (11.5-14.5); White Blood Count 19.1 K/mm3 (4.5-10.0)
[2023-08-28 09:46] VITALS: BP 124/109; PULSE 118; RESP 29; O2SAT 97
[2023-08-28 09:50] LABS: INR 1.2; Prothrombin Time 15.9 Seconds (11.1-14.7)
[2023-08-28 09:51] LABS: Partial Thromboplastin Time 24.7 SECONDS (22.3-36.8)
[2023-08-28] MEDS: ONDANSETRON INJ 4 MG/2 ML VIAL IV PUSH (09:53)
[2023-08-28] MEDS: SODIUM CHLORIDE 0.9% IV 1,000 ML 999 ML IV CONT (09:53)
[2023-08-28 09:59] LABS: Alanine Aminotransferase 20 U/L (6-35); Albumin Level 3.5 g/dL (3.5-5.1); Alkaline Phosphatase 142 U/L (38-126); Anion Gap 7 mmol/L (8-16); Aspartate Amino Transferase 47 U/L (14-36); Bilirubin,Total 0.8 mg/dL (0.2-1.3); Blood Urea Nitrogen 38 mg/dL (7-17); Calcium 8.5 mg/dL (8.4-10.2); Carbon Dioxide 22 mmol/L (22-30); Chloride 107 mmol/L (98-107); Estimated CRCL calculation 48 ml/min; Estimated Glomerular Filt Rate 53; Glucose 216 mg/dL (65-110); Potassium 4.6 mmol/L (3.4-5.0); Sodium 136 mmol/L (137-145)
--- NOTE | 2023-08-28 10:13 | PC.NURSE ---
This RN called Khari (son on contact list) and notified of pts POC, transfer to [facility] per [facility] EDP Dr Núñez. Phone number given on transfer packet to for [facility] to have contact info for continued updates on pt status/POC. Khari is aware of plan of care and has no current questions/complaints. CELL [phone]
--- NOTE | 2023-08-28 10:18 | WPDNEURCNPN ---
Assessment and Plan Assessment and plan (1) Unstable burst fracture of T12 vertebra: Code(s): S22.082A - Unstable burst fracture of T11-T12 vertebra, initial encounter for closed fracture Status: Acute Plan 82-year-old female with osteoporosis who had what sounds like a syncopal event this morning and fell forward striking her head, and was found to have a T12 burst fracture with distraction type injury in addition to bilateral facet fractures. This has an appearance of unstable spinal fracture. Patient is currently neurologically intact. At this point in time we recommend she transfer to a higher institution such as [facility] or [facility], for further surgical consultation as the surgical complexity is would be too much for the capabilities here at [facility]. I discussed this case in person with ER physician Dr. Núñez, I also discussed with my attending Dr. Adriana Marsh who is on-call for our service and agrees with this recommendation. Would continue flat bedrest for the patient at all times, she may also be put mildly in reverse Trendelenburg. Consult date: 08/28/23 Reason for consult: T12-L1 fracture HPI: Damaris Kramer is a 82 year old female who presents after a fall.The patient states she awoke this morning and upon getting out of bed she blacked out . She is unsure of the circumstances of her fall who woke up hip full blood. She reports significant back pain and was found to have a T12-L1 distraction type fracture that appears unstable on imaging. The patient is currently in the emergency room at [facility] in denies any lower extremity weakness, no sensory changes. She is currently complaining of nausea. She has significant history for having prior compression fractures of her lumbar spine with cement augmentation. Our service had seen her as a consult after an acute L5 compression fracture was found in February of 2023. At that time it was recommended she have aggressive osteoporosis treatment and to wear a brace for this fracture. Review of Systems Review of Systems: All systems reviewed & are unremarkable except as noted in HPI and below PMFSH Past Medical History Medical History Anxiety Chronic anticoagulation Chronic atrial fibrillation, unspecified Hyperlipidemia Hyperlipidemia Hypothyroidism Type 2 diabetes mellitus Surgical History Surgical History S/P vertebroplasty Family History Family History Mother Arthritis Other Family history non-contributory Social History Social History Social History: Surrogate medical decision maker: Khari Kramer, son. Code status: Full code. Smoking status: Never smoker Second hand tobacco smoke exposure: No Alcohol intake: unknown Substance use: never Substance use type: does not use Lack of Transportation: No Lack of Food: Never True Current Housing: I Have Housing Concerned About Future Housing: No Difficulty Paying Gas/Electric Bills: No Difficulty Paying for Meds: No Currently Unemployed: No Education: Decline to Answer Difficulty w/ Childcare or Family Care: No Spiritual care concerns: No Meds Home Medications and Allergies Home Medications Medication Instructions Recorded Confirmed Type buspirone 15 mg tablet 15 mg PO TID 10/11/22 03/12/23 History rosuvastatin 10 mg tablet 10 mg PO HS 10/11/22 03/13/23 History tolnaftate 1 % topical powder 1 applic topical Q12HR 1 month #45 10/17/22 03/12/23 Rx grams amiodarone 200 mg tablet (Pacerone) 200 mg PO DAILY 1 month #120 tabs 11/14/22 03/12/23 Rx apixaban 5 mg tablet (Eliquis) 5 mg PO BID 01/15/23 03/12/23 History levothyroxine 125 mcg tablet 125 mcg PO DAILY 01/15/23 03/12/23 History spirono
[2023-08-28 10:20] VITALS: BP 113/84; PULSE 128; RESP 23; TEMP 36.7; O2SAT 95
[2023-08-28 10:21] VITALS: BP 113/84; PULSE 120; RESP 23; TEMP 36.7; O2SAT 96
[2023-08-28 10:24] LABS: Appearance Urine Cloudy (Clear); Bacteria Urine 4+ /hpf; Bilirubin Urine Negative (Negative); Blood Urine Negative (Negative); Color Urine Yellow (Yellow); Glucose Urine UA Negative (Negative); Ketones Urine Negative (Negative); Leukocyte Esterase Ur Trace LEU/UL (Negative); Need Manual Microscopic Reviewed; Nitrate Urine Negative (Negative); Protein Urine Trace mg/dL (Negative); RBC Urine 0-2 /hpf (0-2); Specific Grav Ur 1.032 (1.001-1.035); Squamous Epithelial Cell Urine None seen /hpf (Few)
[2023-08-28 10:44] LABS: Add Urine Microscopic? YES
== END 2023-08-28 11:11 | disposition short-term general hospital (02) ==
PROVIDERS: Emergency Provider Emergency Medicine; PCP Internal Medicine
DX: S22.082A Unstable burst fracture of T11-T12 vertebra, initial encounter for closed fracture (principal); S32.051A Stable burst fracture of fifth lumbar vertebra, initial encounter for closed fracture; S32.018A Other fracture of first lumbar vertebra, initial encounter for closed fracture; S42.211A Unspecified displaced fracture of surgical neck of right humerus, initial encounter for closed fracture; S22.31XA Fracture of one rib, right side, initial encounter for closed fracture; S00.83XA Contusion of other part of head, initial encounter; N39.0 Urinary tract infection, site not specified; F03.90 Unspecified dementia, unspecified severity, without behavioral disturbance, psychotic disturbance, mood disturbance, and anxiety; I48.20 Chronic atrial fibrillation, unspecified; E11.9 Type 2 diabetes mellitus without complications; E78.5 Hyperlipidemia, unspecified; E03.9 Hypothyroidism, unspecified; F41.9 Anxiety disorder, unspecified; Z79.4 Long term (current) use of insulin; Z79.01 Long term (current) use of anticoagulants; W18.30XA Fall on same level, unspecified, initial encounter
CPT/HCPCS: 36415; 70450; 70486; 72125; 72128; 72131; 73030; 80053; 81001; 85025; 85610; 85730; 87086; 96361; 96365; 96375; 96376; 99285; J0696; J2270; J2405; J7030